=== PATIENT | female | born 1955 | race Caucasian/White ===

== ENCOUNTER 2024-03-27 23:06 | Inpatient (IN) | payer MEDICARE, OTHER, SELFPAY ==
[2024-03-27 23:13] VITALS: BP 156/77
[2024-03-28] VITALS (9 sets, daily range): BP systolic 124–154; BP diastolic 59–114; BMI 36.6
--- NOTE | 2024-03-28 01:11 | PTCARENOTE ---
Pt received from Michele morales ~1298. Pt oriented to unit, pt belongings w/ pt. Intake completed. HR SR. 3L NC 93-94%. Pt denies CP or SOB while resting. Informed to notify RN if any changes, call marcus within reach.
[2024-03-28 04:29] LABS: Hematocrit 43.2 % (37.0-47.0); Hemoglobin 14.2 g/dL (12.0-16.0); Mean Corp Hgb Conc. 32.9 g/dL (33.0-37.0); Mean Corpuscular Hgb 28.9 pg (27.0-31.0); Mean Corpuscular Volume 87.8 fL (81.0-99.0); Mean Platelet Volume 9.9 fL (7.4-10.4); Platelet Count 200 10^3/uL (130-400); Red Blood Cell Count 4.92 10^6/uL (4.20-5.40); Red Cell Dist. Width 14.6 % (11.5-14.5); White Blood Cell Count 8.7 10^3/uL (4.8-10.8)
[2024-03-28] MEDS: ULTRAM 50 MG PO ×3 (04:34→22:47)
[2024-03-28 04:51] LABS: NT-proBNP 406 pg/ml
[2024-03-28 04:58] LABS: ALT (SGPT) 16 U/L (0-35); AST (SGOT) 27 U/L (14-36); Albumin 3.7 g/dl (3.5-5.0); Alkaline Phosphatase 52 U/L (38-126); Blood Urea Nitrogen 15 mg/dl (7-17); Calcium 9.2 mg/dl (8.4-10.2); Carbon Dioxide 33 mmol/L (22-30); Chloride 99 mmol/L (98-107); Direct Bilirubin 0.3 mg/dl (0.0-0.4); Estimated Creatinine Clearance 103 ml/min; Glucose 129 mg/dl (70-99); HDL Cholesterol 39 mg/dl; LDL Cholesterol, Calculated 27 mg/dl; Magnesium 1.9 mg/dl (1.6-2.3); Potassium 4.2 mmol/L (3.5-5.1); Sodium 138 mmol/L (135-145); Total Bilirubin 0.4 mg/dl (0.2-1.3); Total Cholesterol 99 mg/dl (50-199); Triglyceride 166 mg/dl (10-149); Very Low Density Lipoprotein 33 mg/dl (0-30); eGFR > 60.00
--- NOTE | 2024-03-28 07:53 | HPS.HSE ---
Family Physician
-
Family Physician: Riccardo Sinclair
Chief Complaint
-
Exertional SOB
History of Present Illness
68 y/o pleasant woman with PMH of CAD S/P Left Heart Cath back in 2017 which was being managed medically. Presented to her Mainframe Systems Engineer Dr. Giordano on Saturday03/25/24 with c/o progressive exertional SOB x 3-4 wks. Denied CP. Had EKG and Echo done @
Dr. Giordano's office and was referred to [facility] for Left heart Cath. Pt presented to [facility] on 03/26/24. Cath yielded 3 vessel CAD ( LM: 20-30% distal, LAD 90-95% prox. and 70-80% mid, LCX: mid-distal with diffuse small
vessels disease, RCA: 100% mid). PCI of the LAD was attempted but was unsuccessful necessitating transfer to [facility] on 03/27/24 @ ~ 2330. Pt stable in no acute distress on presentation, not requiring Heparin or NTG.
Medical History
Past Medical History
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
Additional Past Medical History:
Diverticulosis, Class 2 obesity (BMI 36.6)
Past Surgical History: Reports (x3), Gynocological, Orthopedic (b/l rotator cuff, and cervical spine (C4-C5 disectomy)) and Urological (incisional and umbilical hernia)
Additional Past Surgical History:
hysterectomy
Social History
Tobacco: Former Smoker (quit 7 years ago (2pks/yr since age 25 and quit @ age 61; 72/pkyr))
Alcohol: None
Drug: None
Personal: (to Ascencion Morales)
Living: With Family
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
Family History
Family History: CAD (both mom and dad (mom still living, Dad in his 70's- pt not sure of cause of ))
Allergies / Home Medications
Allergies reflects when Allergies were last updated in [employer].
Home Medications with original date entered in [employer]
Allergy/Medication List:
Clindamycin, Percodan, Oxycodone
Review of Systems
-
History Source: Patient
Constitutional: Reports No Symptoms
EENT: Reports No Symptoms
Respiratory: Reports Other (SOB)
Cardiac: Reports No Symptoms
Abdomen/GI: Reports No Symptoms
: Reports Frequency
Musculoskeletal: Reports Joint Pain (neck and back)
Skin: Reports No Symptoms
Neurological: Reports No Symptoms
Endocrine: Reports No Symptoms
Hematologic/Lymphatic: Reports No Symptoms
Psych: Reports No Symptoms
Physical Exam
Vital Signs
Vital Signs
Temp Pulse Resp BP Pulse Ox
98.6 F 77 20 154/70 100
03/28/24 03:10 03/28/24 04:15 03/28/24 03:10 03/28/24 04:11 03/28/24 03:10
Physical Exam
General: Well Developed, Well Nourished and Morbidly Obese (Class 2)
HEENT: NormoCephalic, Anicteric, Moist mucous membranes, Atraumatic, No Ptosis and Nose Appears Normal
Respiratory: Decreased Breath Sounds
Cardiac: S1/S2, Regular Rhythm and Murmur (1-2/6 systolic)
Breast: Deferred by me
GI: Soft, Non Tender, Non Distended and Normal Bowel Sounds
Rectal: Deferred by Provider
Genito-urinary: Deferred by me
Musculoskeletal: Edema, Left Lower Extremity and Edema, Right Lower Extremity
Skin: Warm
Neuro: Awake, Alert, Oriented, AO x 3 and No Motor Deficits
Psych: Calm and Intact Judgment/Insight
Laboratory Results
-
03/28/24 04:21
03/28/24 04:21
Laboratory Results
Total Bilirubin 0.4 mg/dl (0.2-1.3) 03/28/24 04:21
AST 27 U/L (14-36) 03/28/24 04:21
ALT 16 U/L (0-35) 03/28/24 04:21
Alkaline Phosphatase 52 U/L (38-126) 03/28/24 04:21
Impression/Plan
-
IMPRESSION: 68 y/o woman with severe 3v CAD/ including 20-30% distal LM transferred from [facility] to [facility] for evaluation of high risk PCI vs CABG
PLAN:
-CT Surgeon to evaluate
-Will consult Cardiology
-Will consult Diabetes Education/Management
[2024-03-28 08:12] LABS: Glucose - Point of Care 144 mg/dl (70-99)
[2024-03-28] MEDS: ADVAIR HFA 230/21 MCG INHALER 1 PUFF INH ×2 (08:17→18:00)
[2024-03-28] MEDS: NOVOLOG FLEXPEN-MODERATE RESISTANCE SC (09:13)
[2024-03-28] MEDS: TOPROL XL 50 MG PO (09:14)
[2024-03-28] MEDS: ORETIC 25 MG PO (09:14)
[2024-03-28] MEDS: CLARITIN 10 MG PO (09:15)
[2024-03-28] MEDS: CRESTOR 20 MG PO (09:15)
[2024-03-28] MEDS: ASPIR LOW (ENTERIC COATED) 81 MG PO (09:15)
[2024-03-28] MEDS: GLUCOPHAGE 500 MG PO (09:15)
[2024-03-28] MEDS: BENTYL 20 MG PO ×3 (09:16→22:52)
[2024-03-28] MEDS: LYRICA 50 MG PO ×3 (09:20→22:46)
[2024-03-28 09:41] LABS: Glycohemoglobin (HgbA1c) 8.3 % (4.0-5.6)
--- NOTE | 2024-03-28 10:00 | PTCARENOTE ---
Assumed care of pt from night RN. Pt received awake and alert, Ox3. VSS, CM shows NSR 70's, POX 94% on RA. Right radial site CDI with normal CMS. She denies any pain or discomfort at this time. Will continue to monitor closely.
[2024-03-28 12:56] LABS: O2 Saturation % 88.1 % (94-98); PCO2 52 mmHg (32-35); pH 7.46 (7.35-7.45)
[2024-03-28 12:58] LABS: Glucose - Point of Care 214 mg/dl (70-99)
[2024-03-28] MEDS: NOVOLOG FLEXPEN-MODERATE RESISTANCE 3 UNITS SC ×2 (12:58→17:58)
[2024-03-28 13:03] LABS: PO2 56 mmHg (83-108)
[2024-03-28 13:31] LABS: APTT 28.1 Sec (23.4-35.0); INR 1.06; PT 13.6 Sec (11.4-14.6)
[2024-03-28 17:58] LABS: Glucose - Point of Care 210 mg/dl (70-99)
[2024-03-28] MEDS: HEPARIN 25000 UNITS/250 ML IV (19:29)
[2024-03-28 21:32] LABS: Glucose - Point of Care 235 mg/dl (70-99)
--- NOTE | 2024-03-28 22:14 | PTCARENOTE ---
Pt received at start of shift, HR SR. Heparin initiated at 1000units/hr ~194. Pt educated on purpose and precautions w/ heparin. Pt states understanding. Pt denies any SOB w/o activity or CP. Informed to notify RN if any changes, call marcus within
reach.
[2024-03-28] MEDS: LANTUS 0.599999999999999978 UNITS SC (22:52)
--- NOTE | 2024-03-29 01:14 | W.PN.CT ---
Addendum entered and electronically signed by Carlos Hernández MD 03/29/24 09:14:
I saw and examined the patient.
The PA's note was reviewed and I agree with the note.
Comment:
Case reviewed & available imaging reviewed
Preoperative evaluation/ risk stratification ongoing
Severe CAD, but operative risk is significantly elevated (will calculate STS)
Multidisciplinary discussions ongoing
Original Note:
Today's Communication / Plan
-
Plan:
-No major issues overnight
-Initiated on heparin gtt yesterday 03/28
-CT Surgeon to evaluate films and assess pt for surgical candidacy
-For possible high risk PCI, Cardiology Consult
-Will consider pulmonology and diabetes education/management consult
-Ongoing discussion/evaluation
-Will cont. to closely monitor
Assessment / Plan
-
Assessment:
-Severe 3v CAD/20-30% distal LM
-PLATA
-Mild aortic stenosis
-Moderate aortic root sclerosis
-Severe scoliosis
-Severe COPD/stage 3 with FEV1 (0.85, 37%)
-Former tobacco abuse (quit 7 years ago (2pks/yr since age 25 and quit @ age 61; 72/pkyr)
-Asthma
-Hypoxemia per ABG 03/29 with Pao2 56 L
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
-Class 2 obesity (BMI 36.6)
-HLD
-HTN
-Severe PAD with claudication (Left SFA with 75% stenosis)
-Seasonal allergies
-GERD
-Diverticulosis
-Chronic neck and back pain
-S/p C4/C5 discectomy
-S/P b/l rotator cuff repair
-S/P x 3
-S/P Hysterectomy
-S/P Incisional and Umbilical hernia repair
Discussed patient care with: Cardiology, Nursing, Respiratory Therapy, Pharmacy and Care Team
Subjective
-
Date of Service: March 29, 2024
No issues overnight. Denies CP
Objective Data
-
PT 13.6 Sec (11.4-14.6) 03/28/24 13:11
INR 1.06 03/28/24 13:11
APTT Cancelled 03/28/24 18:39
Vital Signs
Vital Signs
Temp Pulse Resp BP Pulse Ox
99 F 73 18 139/92 92
03/28/24 22:57 03/28/24 23:00 03/28/24 22:57 03/28/24 22:57 03/28/24 22:57
CT Intake/Output/Weight
03/28/24 03/28/24 03/29/24
06:59 18:59 06:59
Intake Total 480 / 480
Balance 480 / 480
SaO2: 92 (2L)
Physical Exam
-
General: Awake, Oriented and AOx3
Cardiovascular: Regular rate & rhythm and Murmur (1-2/6 systolic)
Respiratory: Decreased Breath Sounds
Extremities: Edema +1
Data Reviewed
-
Lab Results: Results Reviewed
Medications: Active Meds Reviewed
Chest X-Ray: Report Reviewed and Image Reviewed
ECG: Report Reviewed and Image Reviewed
[2024-03-29 01:59] VITALS: BP 133/62
[2024-03-29 02:15] LABS: Hematocrit 41.8 % (37.0-47.0); Hemoglobin 14.1 g/dL (12.0-16.0); Mean Corp Hgb Conc. 33.7 g/dL (33.0-37.0); Mean Corpuscular Hgb 29.1 pg (27.0-31.0); Mean Corpuscular Volume 86.2 fL (81.0-99.0); Mean Platelet Volume 10.1 fL (7.4-10.4); Platelet Count 206 10^3/uL (130-400); Red Blood Cell Count 4.85 10^6/uL (4.20-5.40); Red Cell Dist. Width 14.4 % (11.5-14.5); White Blood Cell Count 10.5 10^3/uL (4.8-10.8)
[2024-03-29 02:46] LABS: Blood Urea Nitrogen 16 mg/dl (7-17); Calcium 9.5 mg/dl (8.4-10.2); Carbon Dioxide 34 mmol/L (22-30); Chloride 97 mmol/L (98-107); Estimated Creatinine Clearance 103 ml/min; Glucose 219 mg/dl (70-99); Potassium 3.9 mmol/L (3.5-5.1); Sodium 138 mmol/L (135-145); eGFR > 60.00
[2024-03-29 05:23] VITALS: BMI 36.2
[2024-03-29 07:31] VITALS: BP 165/72
[2024-03-29] MEDS: ULTRAM 50 MG PO (08:10)
[2024-03-29] MEDS: ADVAIR HFA 230/21 MCG INHALER 1 PUFF INH ×2 (08:19→19:23)
[2024-03-29 08:21] LABS: Glucose - Point of Care 215 mg/dl (70-99)
--- NOTE | 2024-03-29 08:31 | CON.CAR ---
Consultation
Consultation Request
Date/Time Consultation Requested: 03/28/2024 @ 18:21
Date/Time Consultation Performed: 03/29/2024 @ 08:32
Requesting Provider: Carlos Hernández M.D.
Performing Provider: Basilio Abreu D.O.
Reason for Consultation: Transfer from [facility] for consideration of CABG vs. atherectomy + PCI.
Medical History
-
Chief Complaint: Transfer from [facility].
History of Present Illness:
68 y/o female with HTN, HLD, PAD, asthma/COPD transferred from [facility].� The patient was seen by her primary vulcanizing machine operator, Dr. Giordano, where she described worsending/accelerating shortness in breath/dyspnea on exertion.� An EKG and echocardiogram were
performed in the office and she was referred to [facility] for cardiac catheterization.� That catheterization revealed severe multivessel disease with dense calcification.� PCI was attempted but there was concern for balloon underexpansion and need for
atherectomy vs. CABG.� The patient has reportedly significant PAD (75% SFA stenosis) and COPD which may preclude surgical revascularization.
On interview, the patient states she feels well at rest. She does admit to dyspnea with ambulation to the bathroom. Since arrival, she has been chest pain free. She denies palpitations, syncope or presyncope. BP is mildly elevated. She is
maintaining oxygen saturation of 92% on 2LNC.
I have personally reviewed the cardiac catheterization films.� There is significant disease in pLAD and mLAD, a STOREKEEPER STEWARD in the mRCA and moderate disease in the LCx.� The echocardiogram revealed mild/moderate aortic valve stenosis.
Spirometry was performed at bedside, showing FEV1/FVC 0.76, FEV1 = 1.15 L (39%).
Separately, she is caring for her who is currently being considered for lung transplant with [facility]. Her mother last night (she was on hospice).
DATA:
TTE, 03/27/2024:
CONCLUSIONS
�1.� Technically difficult study making assessment of wall motion less reliable.�
�Grossly, LV function is normal with an estimated ejection fraction of 60%.� A
�localized wall motion abnormality could not be excluded.
�2.� Normal RV function
�3.� Mildly increased transaortic gradient of 21 mm peak 14 mm mean with a
�calculated aortic valve area of 1.5 cm2.� Findings compatible with the presence
�of mild aortic stenosis.� No aortic insufficiency was detected.
�4.� Moderate aortic root sclerosis
�5.� Normal chamber sizes
�6.� No other significant valvular disease is detected
Cardiac catheterization, 03/27/2024 (my interpretation):
1. Right dominant circulation with a 60 to 70% distal left main stenosis (only appreciated on steep AP, TOP WADDY 40), densely calcified 80-90% lesion in the proximal LAD, and a densely calcified, Schumacher 1, 1, 1 70%, 80%, 80% lesion in the mid LAD/second
diagonal, 60% ostial circumflex lesion and chronic total occlusion of the mid RCA, supplied by [id number] collaterals.
2. Limited balloon angioplasty of the densely calcified 80-90% proximal LAD lesion with incomplete balloon expansion.
Past Medical History
Past Medical History: Asthma, CAD, COPD, HTN, Hypercholesterolemia, IDDM, Valvular Disease (Mild/moderate .) and Other (PAD)
Social History
Tobacco: Former Smoker (20 pack years, quit 7 years ago.)
Alcohol: None
Drug: None
Employment: Retired
Family History
Family History: Reviewed & Not Pertinent
Allergies / Home Medications
Allergy/AdvReac Type Severity Reaction Status Date / Time
aspirin [From Percodan] Allergy Intermediate Hives Verified 03/28/24 21:35
clindamycin Allergy Intermediate Hives Verified 03/28/24 21:35
oxycodone [From Percodan] Allergy Intermediate Hives Verified 03/28/24 21:35
�Medication �Instructions �Recorded �Confirmed �Type
albuterol 90 mcg/actuation aerosol mcg inhalation PRN SOB 03/27/24 History
inhaler
aspirin 81 mg tablet 81 mg PO DAILY 03/27/24 03/28/24 History
dicyclomine 20 mg tablet 20 mg PO TID 03/27/24 03/28/24 History
docusate calcium 240 mg capsule 240 mg PO PRN CONSTIPATION 03/27/24 History
fluticasone 250 mcg-salmeterol 50 1 inh inhalation BID 03/27/24 03/27/24 History
mcg/dose blistr powdr for
inhalation (Advair Diskus)
hydrochlorothiazide 25 mg tablet 25 mg PO DAILY 03/27/24 03/28/24 History
icosapent ethyl 1 gram capsule 1 g PO QID 03/27/24 03/28/24 History
(Vascepa)
loratadine 10 mg tablet (Allergy 10 mg PO DAILY 03/27/24 03/28/24 History
Relief (loratadine))
losartan 100 mg tablet 100 mg PO DAILY 03/27/24 03/28/24 History
metformin 500 mg tablet 500 mg PO DAILY 03/27/24 03/27/24 History
metoprolol succinate 50 mg 50 mg PO DAILY 03/27/24 03/28/24 History
tablet,extended release 24 hr
pregabalin 50 mg capsule 50 mg PO TID 03/27/24 03/27/24 History
rosuvastatin 20 mg tablet 20 mg PO DAILY 03/27/24 03/28/24 History
tramadol 50 mg tablet 100 mg PO Q6H PRN PAIN 03/27/24 03/28/24 History
Review of Systems
-
History Source: Patient
Constitutional: No Symptoms
EENT: No Symptoms
Respiratory: Trouble Breathing
Cardiac: Chest Pain
Abdomen/GI: No Symptoms
: No Symptoms
Musculoskeletal: No Symptoms
Skin: No Symptoms
Neurological: No Symptoms
Endocrine: No Symptoms
Hematologic/Lymphatic: No Symptoms
Physical Exam
Vital Signs
Temp Pulse Resp BP Pulse Ox
36.9 C 70 18 165/72 93
03/29/24 07:28 03/29/24 08:20 03/29/24 08:20 03/29/24 07:31 03/29/24 07:28
Lab Results
03/29/24 02:09
03/29/24 02:09
[id number] Pept 406 pg/ml 03/28/24 04:21
Physical Exam
General: Well Developed, Well Nourished, No Apparent Distress and Comfortable
HEENT: Normocephalic, Anicteric, Moist Mucous Membranes and Atraumatic
Respiratory: Clear and Non Labored Respirations
Cardiac: S1/S2 and Regular Rhythm
Breast: Deferred by me
GI: Soft, Non Tender, Non Distended and Normal Bowel Sounds
Rectal: Deferred by Provider
Genito-urinary: No Costovertebral Tender and Clear Urine
Musculoskeletal: No Clubbing, No Cyanosis and No Edema
Skin: Warm and Dry
Neuro: AO x 3
Hematologic/Lymphatic: No Lymphadenopathy
Psych: Calm
Impression / Plan
-
Impression/Plan: 68 y/o female with IDDM, HTN, HLD and PAD transferred from [facility] after cardiac catheterization performed for accelerating SOB/PLATA revealed severe, multivessel CAD requiring atherectomy vs. CABG.
#CAD
-New diagnosis.
-Films reviewed. The patient is a candidate for high risk PCI/Atherectomy/lithotripsy given the dense calcification. CABG is the best option for coronary revascularization, but her comorbidities may negate this penitentiary advantage with high
likelihood of procedure related mortality/morbidity.
-Strategically, the patient's 90% pLAD lesion is the most prognostically significant. Percutaneous options include isolated PCI of only the 90% lesion and medical management of the remainder of the disease, DK crush of the ostial LCx/LAD/LMCA to
address all of the proximal disease (I would be highly suspicious that the LCx would be compromised without dedicated stent, negating a provisional strategy). At this time, I would defer treatment of the mid-LAD lesion and plan to address it
medically or with staged PCI at a later date. In terms of plaque modification, I would favor intracoronary lithotripsy if possible to lessen the risk of no reflow as she is relatively dependent on her LAD.
-It is possible that her symptoms are entirely driven by her COPD given her lack of chest pain. Another option would be to offer her medical therapy given the high risk of the potential surgery/interventions, understanding that she has a
significant likelihood of /AK.
-Hold antiplatelet therapy at this time.
-Discuss revascularization strategy with CT surgery. We will await their formal assessment.
-Maintain aspirin, metoprolol, rosuvastatin, icosapent ethyl.
#COPD
-FEV1 = 1.15 L (39%).
-Formal PFT's (including DLCO) tomorrow.
#HTN
-Chronic, stable.
#HLD
-Chronic, stable.
-Continue rosuvastatin and icosapent ethyl.
-Goal LDL < 55, Triglycerides < 150.
#IDDM
-Chronic, stable.
-Check HbA1c.
-SSI per primary team.
-Hold metformin in anticipation of possible catheterization.
#PAD
-Chronic, stable.
-Lipid lower therapy as above.
Data Reviewed
-
EKG: Tracing Personally Visualized and interpreted and Report Reviewed by me
Radiology: Image Personally Visualized and interpreted and Report Reviewed by me
CT Scan: Image Personally Visualized and interpreted
Medical Tests (Nuc Med, Echo etc): Image Personally Visualized and interpreted, Report Reviewed by me, Discussed with Physician and Discussed with Patient
Labs: Labs Reviewed by me, Discussed with Physician and Discussed with Patient
Old Records: Reviewed
[2024-03-29] MEDS: NOVOLOG FLEXPEN-MODERATE RESISTANCE 3 UNITS SC ×2 (10:24→17:40)
[2024-03-29] MEDS: GLUCOPHAGE 500 MG PO (10:25)
[2024-03-29] MEDS: CRESTOR 20 MG PO (10:25)
[2024-03-29] MEDS: CLARITIN 10 MG PO (10:25)
[2024-03-29] MEDS: ASPIR LOW (ENTERIC COATED) 81 MG PO (10:25)
[2024-03-29] MEDS: ORETIC 25 MG PO (10:26)
[2024-03-29] MEDS: LYRICA 50 MG PO ×3 (10:26→22:29)
[2024-03-29] MEDS: TOPROL XL 50 MG PO (10:26)
[2024-03-29] MEDS: BENTYL 20 MG PO ×3 (10:27→22:29)
--- NOTE | 2024-03-29 10:57 | PTCARENOTE ---
Assumed care of pt from night RN. Pt received awake and alert, Ox3. VSS, CM shows NSR 70's, POX 94/2liters. Tramadol 50 mg given as per MAR for lower back pain. Heparin infusing at 1200u/hr through left wrist. Right radial site remains JANNET with
good CMS throughout limb. Will continue to monitor closely.
[2024-03-29 11:06] LABS: APTT 42.6 Sec (23.4-35.0)
[2024-03-29] MEDS: KCL 20 MEQ PO (11:12)
--- NOTE | 2024-03-29 11:13 | PTCARENOTE ---
PTT resulted at 42.6, Heparin drip increased to 1,400 u/hr as per protocol. KCl given po as per MAR.
[2024-03-29 12:57] VITALS: BP 137/61
[2024-03-29 13:54] LABS: Glucose - Point of Care 285 mg/dl (70-99)
[2024-03-29] MEDS: NOVOLOG FLEXPEN-MODERATE RESISTANCE 5 UNITS SC (13:54)
--- NOTE | 2024-03-29 16:15 | CON.PUL ---
Consultation
Consultation Request
Date/Time Consultation Requested: 03/29/2024 - 1101
Date/Time Consultation Performed: 03/29/2024 - 0
Requesting Provider: Za Santos PA-C
Performing Provider: Johnson Roy MD
Reason for Consultation: Pre-Op pulmonary optimization
Medical History
-
Chief Complaint: SOB
History of Present Illness:
68-year-old female with a past medical history of CAD, asthma, reported history of COPD, GERD, DM type II, PAD, former tobacco use disorder and cataracts who presents with SOB for 3-4 weeks. 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
Dr. Giordano, on 03/25/[address] depressions concerning for ischemia. She had gone to [facility] for left heart cath showing three-vessel CAD. PCI of the LAD was attempted but unsuccessful and now she is here at [facility] for further management. Spirometry was done here at [facility] showing a very severe restrictive lung defect with postbronchodilator FVC of 40% predicted. She also had a blood gas showing metabolic alkalosis with a pH 7.46, pCO2 52.
Pulmonary service now consulted for further recommendations/management.
When I saw the patient she was sitting in bed in no acute distress on 2 L/min nasal cannula saturating 94%. She currently feels well. She sometimes takes off her oxygen to go to the bathroom and denies any shortness of breath during those periods
of time. She says that she struggles with allergies that were recently bad and she knows that she is allergic to pollen and mold. She is not actually sure if she has a history of asthma, and she does not follow with a business services manager. She does take
Advair at home and when I asked why she takes Advair, she was not sure. Patient currently denies headache, chest pain, abdominal pain, fevers or chills.
PMHx: Asthma, CAD, reported history of COPD, GERD, hypertension, hypercholesterolemia, DM type II, PAD, obesity, former tobacco use disorder, IBS, cataracts
PSHx: x 3, C4-5 discectomy, incisional and umbilical hernia, hysterectomy
Past Medical History
Past Medical History: Other (Above as per HPI)
Past Surgical History: Other (Above as per HPI)
Social History
Tobacco: Former Smoker (Quit 7 years ago - 2 PPD x 20 years)
Alcohol: None
Drug: None
Personal:
Living: With Family
Family History
Family History: CAD (Both parents)
Allergies / Home Medications
Allergies
Allergy/AdvReac Type Severity Reaction Status Date / Time
aspirin [From Percodan] Allergy Intermediate Hives Verified 03/28/24 21:35
clindamycin Allergy Intermediate Hives Verified 03/28/24 21:35
oxycodone [From Percodan] Allergy Intermediate Hives Verified 03/28/24 21:35
Home Medications
�Medication �Instructions �Recorded �Confirmed �Last Taken �Type
albuterol 90 mcg/actuation aerosol mcg inhalation PRN SOB 03/27/24 Unknown History
inhaler
aspirin 81 mg tablet 81 mg PO DAILY 03/27/24 03/28/24 03/28/24 History
dicyclomine 20 mg tablet 20 mg PO TID 03/27/24 03/28/24 03/28/24 History
docusate calcium 240 mg capsule 240 mg PO PRN CONSTIPATION 03/27/24 Unknown History
fluticasone 250 mcg-salmeterol 50 1 inh inhalation BID 03/27/24 03/27/24 Unknown History
mcg/dose blistr powdr for
inhalation (Advair Diskus)
hydrochlorothiazide 25 mg tablet 25 mg PO DAILY 03/27/24 03/28/24 03/27/24 History
icosapent ethyl 1 gram capsule 1 g PO QID 03/27/24 03/28/24 Unknown History
(Vascepa)
loratadine 10 mg tablet (Allergy 10 mg PO DAILY 03/27/24 03/28/24 03/27/24 History
Relief (loratadine))
losartan 100 mg tablet 100 mg PO DAILY 03/27/24 03/28/24 03/28/24 History
metformin 500 mg tablet 500 mg PO DAILY 03/27/24 03/27/24 03/26/24 History
metoprolol succinate 50 mg 50 mg PO DAILY 03/27/24 03/28/24 03/27/24 History
tablet,extended release 24 hr
pregabalin 50 mg capsule 50 mg PO TID 03/27/24 03/27/24 Unknown History
rosuvastatin 20 mg tablet 20 mg PO DAILY 03/27/24 03/28/24 03/27/24 History
tramadol 50 mg tablet 100 mg PO Q6H PRN PAIN 03/27/24 03/28/24 Unknown History
Review of Systems
-
History Source: Patient
All other systems: Negative unless noted
Vitals / Labs / Diagnostic Testing
Vital Signs
Temp Pulse Resp BP Pulse Ox
98.5 F 82 20 165/72 94
03/29/24 12:48 03/29/24 10:26 03/29/24 12:48 03/29/24 10:26 03/29/24 12:48
Lab Data
03/29/24 02:09
03/29/24 02:09
Laboratory Results
03/28/24 03/29/24 03/29/24
18:39 02:09 09:46
APTT Cancelled 42.0 H 42.6 H
Diagnostic Testing:
Physical Exam
-
HEENT: Normocephalic and Anicteric
Cardiovascular: S1/S2, Murmur (ARCELIA heard in LUSB) and Peripheral Edema (+1 lower extremity pitting edema)
Respiratory: Clear, Wheeze (negative), Rales (negative), Rhonchi (negative) and Accessory Resp Muscle Use (negative)
GI: Soft, Non Distended, Non Tender and Normal Bowel Sounds
Neurology: AO x 3 and Tremors (negative)
Skin: Warm and Dry
General: Comfortable, Chills (negative) and Sweats (negative)
Assessment
-
Assessment: 68-year-old female with a past medical history of CAD, asthma, reported history of COPD, GERD, DM type II, PAD, former tobacco use disorder and cataracts who presents with SOB for 3-4 weeks. 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 Giordano, on 03/25/[address]ressions concerning for ischemia. She had gone to [facility] for left heart cath showing three-vessel CAD. PCI of the LAD was attempted but unsuccessful and now she
is here at [facility] for further management. Spirometry was done here at [facility] showing a very severe restrictive lung defect with postbronchodilator FVC of 40% predicted. She also had a blood gas showing metabolic alkalosis
with a pH 7.46, pCO2 52. Pulmonary service now consulted for further recommendations/management.
Chronic conditions [employer] INTER[employer]: Asthma, CAD, reported history of COPD, GERD, hypertension, hypercholesterolemia, DM type II, PAD, obesity, former tobacco use disorder, IBS, cataracts
Impression:
#Very severe restrictive lung disease - this may be over-estimated given patient positioning and deconditioning during current hospitalization
#Abnormal blood gas with metabolic alkalosis with compensatory respiratory acidosis
#Morbid obesity
#DM type II c/b hyperglycemia (A1C: 8.3)
#Hx of asthma (she does not have COPD as per spirometry on 03/28/2024)
#CAD
#GERD
Plan:
- Patient is intermediate-high risk for pulmonary complications given her very severe restrictive lung disease ---> difficult to say if this is truly a restrictive lung defect or if it is effort dependent --> recommend full PFTs performed in PFT lab
with pre and post bronchodilator spirometry, lung volumes + diffusion capacity
- Her CT chest shows mild linear scarring in her LLL, otherwise her lung parenchyma looks good with no evidence of ILD
- She is saturating 94% on 2L/min and breathing comfortably
- Ideally performing a lesser invasive procedure like a cardiac catheterization would be preferred compared to doing a surgical revascularization. However according to cardiology, she has dense coronary calcification and would be a high risk PCI
- The following recommendations are based on if she gets MAC/GA for a CABG:
- Given her hypercapnea, I would extubate to BiPAP post-operatively assuming she is not having any vomiting or hemoptysis
- Trend her blood gas closely when getting close to extubation post-op
- Given her Hx of asthma, continue her Advair as prescribed, and give a dose of steroids pre-op in addition to a DuoNeb treatment
- Early post-operative ambulation as tolerated
- Continue prn nebulized bronchodilators
- Maintain SpO2 >90-94% with supplemental O2 as needed
- Incentive spirometer encouraged
- PT/OT
- Replete electrolytes with K>4, Mg>2
- Maintain euglycemia with goal BG >100 and <180
- DVT ppx
Pulmonary service will continue to follow along. I will arrange to see her in the office to discuss lung cancer screening given her significant tobacco use history as she qualifies for LDCT chest given she quit 7 years ago and smoked >[id number]
Hx and is between ages 50-77. I also will manage her asthma.
Total time spent today was 55 minutes for this encounter. Time includes reviewing laboratory test/imaging results, reviewing pertinent medical records, obtaining and reviewing medical history, performing an appropriate exam, ordering medications,
tests and procedures. Time also includes documentation of this encounter, coordinating patient care and communicating with other healthcare professionals. Total time does not include separately billed tests performed on this date of service.
Data:
CT Chest without contrast 03-29-2024:
1. SEVERE CALCIFIC ATHEROSCLEROTIC PLAQUE in the CORONARY ARTERIES.
2. Severe calcific atherosclerotic plaque in the thoracic aorta.
3. Moderate calcification in the aortic valve.
4. Mild scarring in both lungs.
5. Severe right convex curvature of the midthoracic spine with severe multilevel thoracic discogenic degenerative disease.
[2024-03-29 16:18] VITALS: BP 142/56
[2024-03-29] MEDS: HEPARIN 25000 UNITS/250 ML IV (16:19)
[2024-03-29] MEDS: ULTRAM 100 MG PO ×2 (17:32→23:55)
[2024-03-29 17:40] LABS: Glucose - Point of Care 239 mg/dl (70-99)
[2024-03-29 17:40] LABS: APTT 56.8 Sec (23.4-35.0)
[2024-03-29 19:58] VITALS: BP 137/64
--- NOTE | 2024-03-29 21:42 | PTCARENOTE ---
Pt received at start of shift, HR SR. Pt melancholy and tearful over loss of mother early in AM - Pt very worried she won't be able to make it to her . Pt OOB to bathroom to wash her face, assisted pt back to bed. pt 94% 2L NC. Pt denies any
CP, SOB on rest, or lightheadedness/dizziness. Informed pt to notify RN if any changes, call marcus within reach.
[2024-03-29 22:28] LABS: Glucose - Point of Care 283 mg/dl (70-99)
[2024-03-29] MEDS: LANTUS 0.599999999999999978 UNITS SC (22:28)
[2024-03-29 22:35] VITALS: BP 133/90
[2024-03-30] VITALS (10 sets, daily range): BP systolic 115–154; BP diastolic 47–111; BMI 36.2
--- NOTE | 2024-03-30 01:01 | W.PN.CT ---
Addendum entered and electronically signed by Carlos Hernández MD 03/30/24 16:25:
I saw and examined the patient.
The PA's note was reviewed and I agree with the note.
Comment:
Preoperative risk stratification ongoing
Greatly appreciate the expertise of my medical colleagues
Given patients comorbidities and significant ascending aortic calcifications - would favor PCI if possible
I have asked my surgical colleagues to independently evaluate this patient
Original Note:
Today's Communication / Plan
-
Plan:
-No issues overnight
-Initiated on heparin gtt on 03/28
-CT Surgeon to evaluate films and assess pt for surgical candidacy
-For possible high risk PCI, Cardiology following
-Pulm. following and recommends full PFTs performed in PFT lab with pre and post bronchodilator spirometry, lung volumes + diffusion capacity
-Will consider diabetes education/management consult given hgb A1C of 8.3
-Ongoing discussion/evaluation
-Will cont. to closely monitor
Assessment / Plan
-
Assessment:
-Severe 3v CAD/20-30% distal LM
-PLATA
-Mild aortic stenosis
-Moderate aortic root sclerosis, per echo @ Dr. Giordano's office
-Scoliosis with severe right convex curvature of the midthoracic spine
-COPD with FEV1 (0.85, 37%)
-Former tobacco abuse (quit 7 years ago (2pks/yr since age 25 and quit @ age 61; 73/pkyr)
-Asthma
-Hypoxemia per ABG 03/29 with Pao2 56 L
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
-Class 2 obesity (BMI 36.6)
-HLD
-HTN
-Severe PAD with claudication (Left SFA with 75% stenosis)
-Seasonal allergies
-GERD
-Diverticulosis
-Chronic neck and back pain
-S/p C4/C5 discectomy
-S/P b/l rotator cuff repair
-S/P x 3
-S/P Hysterectomy
-S/P Incisional and Umbilical hernia repair
Discussed patient care with: Cardiology, Nursing, Respiratory Therapy, Pharmacy and Care Team
Subjective
-
Date of Service: March 30, 2024
No issues overnight. Denies CP/SOB. Currently on 2L NC
Objective Data
-
PT 13.6 Sec (11.4-14.6) 03/28/24 13:11
INR 1.06 03/28/24 13:11
APTT 56.8 Sec (23.4-35.0) H 03/29/24 17:21
Vital Signs
Vital Signs
Temp Pulse Resp BP Pulse Ox
98.3 F 68 18 133/90 94
03/29/24 22:35 03/29/24 22:35 03/29/24 22:35 03/29/24 22:35 03/29/24 22:35
CT Intake/Output/Weight
03/29/24 03/29/24 03/30/24
06:59 18:59 06:59
Intake Total 240 / 240 480 / 480
Balance 240 / 240 480 / 480
SaO2: 94 (2L)
Physical Exam
-
General: Awake, Oriented and AOx3
Cardiovascular: Regular rate & rhythm and Murmur (1-2/6 systolic)
Respiratory: Decreased Breath Sounds
Extremities: Edema +1
Data Reviewed
-
Lab Results: Results Reviewed
Medications: Active Meds Reviewed
Chest X-Ray: Report Reviewed and Image Reviewed
ECG: Report Reviewed and Image Reviewed
[2024-03-30 01:16] LABS: APTT 99.4 Sec (23.4-35.0)
[2024-03-30] MEDS: ADVAIR HFA 230/21 MCG INHALER 1 PUFF INH ×2 (07:39→19:02)
[2024-03-30 08:35] LABS: Glucose - Point of Care 174 mg/dl (70-99)
[2024-03-30] MEDS: TOPROL XL 50 MG PO (09:03)
[2024-03-30] MEDS: CRESTOR 20 MG PO (09:03)
[2024-03-30] MEDS: ASPIR LOW (ENTERIC COATED) 81 MG PO (09:03)
[2024-03-30] MEDS: LYRICA 50 MG PO ×3 (09:04→22:35)
[2024-03-30] MEDS: GLUCOPHAGE 500 MG PO (09:04)
[2024-03-30] MEDS: ORETIC 25 MG PO (09:05)
[2024-03-30] MEDS: BENTYL 20 MG PO ×3 (09:09→22:35)
[2024-03-30] MEDS: CLARITIN 10 MG PO (09:09)
[2024-03-30] MEDS: ULTRAM 100 MG PO ×2 (09:15→22:40)
[2024-03-30] MEDS: NOVOLOG FLEXPEN-MODERATE RESISTANCE 1 UNITS SC (09:15)
--- NOTE | 2024-03-30 09:50 | W.PN.PUL.V3 ---
Today's Communication / Plan
-
Wean oxygen
Nebulizers if needed-currently not bronchospastic
Considering high risk PCI
Outpatient pulmonary/sleep disorders follow-up
Assessment
-
Assessment: 68-year-old female with a past medical history of CAD, asthma, reported history of COPD, GERD, DM type II, PAD, former tobacco use disorder and cataracts who presents with SOB for 3-4 weeks. 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 Giordano, on 03/25/[address] depressions concerning for ischemia. She had gone to [facility] for left heart cath showing three-vessel CAD. PCI of the LAD was attempted but unsuccessful and now she
is here at [facility] for further management. Spirometry was done here at [facility] showing a very severe restrictive lung defect with postbronchodilator FVC of 40% predicted. She also had a blood gas showing metabolic alkalosis
with a pH 7.46, pCO2 52. Pulmonary service now consulted for further recommendations/management.
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
Impression:
#Very severe restrictive lung disease - this may be over-estimated given patient positioning and deconditioning during current hospitalization
#Abnormal blood gas with metabolic alkalosis with compensatory respiratory acidosis
#Morbid obesity
#DM type II c/b hyperglycemia (A1C: 8.3)
#Hx of asthma (she does not have COPD as per spirometry on 03/28/2024)
#CAD
#GERD
Plan:
Respiratory status relatively stable at rest
Wean supplemental oxygen
Eventually assess discharge supplemental oxygen needs
Nebulizers if needed-currently not bronchospastic
Aspiration precautions
Incentive spirometry
BiPAP as needed and tolerated
Cardiology and cardiovascular/thoracic surgery following-correspondence reviewed
Now contemplating high risk PCI and not open heart procedure
Moderate to high risk for perioperative pulmonary complications if median sternotomy/thoracotomy/CABG pursued
Monitor closely postoperatively including BiPAP if needed
DVT prophylaxis
Nutrition
Early mobilization
We will arrange to see her in the office to discuss lung cancer screening given her significant tobacco use history as she qualifies for LDCT chest given she quit 7 years ago and smoked >11-jhgx-magx Hx and is between ages 50-77. We will also help
manage her outpatient asthma, pulmonary function test, sleep disordered breathing, etc.
Data:
CT Chest without contrast 03-29-2024:
1. SEVERE CALCIFIC ATHEROSCLEROTIC PLAQUE in the CORONARY ARTERIES.
2. Severe calcific atherosclerotic plaque in the thoracic aorta.
3. Moderate calcification in the aortic valve.
4. Mild scarring in both lungs.
5. Severe right convex curvature of the midthoracic spine with severe multilevel thoracic discogenic degenerative disease.
Spirometry 03/28/2024-FEV1 0.72-41%, FVC 1.15-39%
Subjective Data
-
Date of Service:
Date of Service: March 30, 2024
Chief Complaint: Pulmonary Follow Up and Dyspnea Follow Up
Subjective:
Feels like her breathing has improved, denies any shortness of breath, decreased dyspnea exertion, no chest pain, productive cough, chest congestion or pleurisy
Review of Systems
General: Other (Per HPI)
Objective Data
Data Reviewed
Vital Signs / I&O:
Vital Signs
Temp Pulse Resp BP Pulse Ox
97.9 F 64 20 125/60 95
03/30/24 07:55 03/30/24 07:55 03/30/24 07:55 03/30/24 04:54 03/30/24 07:55
Intake and Output
03/29/24 03/30/24 03/31/24
06:59 06:59 06:59
Intake Total 240 / 240 480 / 480
Balance 240 / 240 480 / 480
SaO2: 95
Nasal Cannula flow liters per minute: 2
Physical Exam
General: Respiratory Distress (n) and Comfortable
HEENT: Normocephalic, Anicteric and Moist Mucous Membranes
Cardiovascular: Regular Rhythm and Murmur
Respiratory: Clear (Diminished breath sounds), Crackles (n), Rhonchi (n), Non-Labored Respirations, Accessory Resp Muscle Use (n) and Stridor (n)
GI: Soft, Non Distended and Non Tender
Neurology: Awake, Alert and No Motor Deficits
Skin: Warm, Good Color, Cyanosis (n), Jaundice (n) and Rash (n)
Labs/Micro/Reports
Laboratory Results
03/29/24 03/29/24 03/30/24
09:46 17:21 00:57
APTT 42.6 H 56.8 H 99.4 H
[2024-03-30] MEDS: HEPARIN 25000 UNITS/250 ML IV (10:39)
[2024-03-30 10:54] LABS: APTT 90.4 Sec (23.4-35.0)
--- NOTE | 2024-03-30 12:41 | CM ---
Chart reviewed. Patient is independent of ADLS, lives with her in a 1 STH, ramp access, 0 DME. Patient may need Home O2, continue to assess. Patient is interested in VN. Referral sent to [facility]. Plan is for the patient to return home
with [facility]. CM to follow
[2024-03-30 13:37] LABS: Glucose - Point of Care 231 mg/dl (70-99)
--- NOTE | 2024-03-30 13:40 | W.PN.CD ---
Today's Communication / Plan
-
Formal PFT's.
Consultation with CT surgery regarding revascularization strategy.
If PCI is selected, we will make NPO after MN and load with clopidogrel.
Impression / Plan
-
Impression/Plan: 68 y/o female with IDDM, HTN, HLD and PAD transferred from [facility] after cardiac catheterization performed for accelerating SOB/PLATA revealed severe, multivessel CAD requiring atherectomy vs. CABG.
#CAD
-New diagnosis.
-Films reviewed. The patient is a candidate for high risk PCI/Atherectomy/lithotripsy given the dense calcification. CABG is the best option for coronary revascularization, but her comorbidities may negate this chcf advantage with high
likelihood of procedure related mortality/morbidity.
-Strategically, the patient's 90% pLAD lesion is the most prognostically significant. Percutaneous options include isolated PCI of only the 90% lesion and medical management of the remainder of the disease, DK crush of the ostial LCx/LAD/LMCA to
address all of the proximal disease (I would be highly suspicious that the LCx would be compromised without dedicated stent, negating a provisional strategy). At this time, I would defer treatment of the mid-LAD lesion and plan to address it
medically or with staged PCI at a later date. In terms of plaque modification, I would favor intracoronary lithotripsy if possible to lessen the risk of no reflow as she is relatively dependent on her LAD.
-It is possible that her symptoms are entirely driven by her COPD/RLD given her lack of chest pain. Another option would be to offer her medical therapy given the high risk of the potential surgery/interventions, understanding that she has a
significant likelihood of /RI.
-Hold antiplatelet therapy at this time.
-Discuss revascularization strategy with CT surgery. We will await their formal assessment.
-Maintain aspirin, metoprolol, rosuvastatin, icosapent ethyl.
#Hypoxic respiratory failure/RLD
-New diagnosis.
-LVEDP 12 mmHg at cath.
-FEV1 = 1.15 L (39%).
-CT chest shows mild bibasilar scarring.
-Pulmonology following.
-Full PFT's ordered/pending.
#HTN
-Chronic, stable.
-Continue HCTZ, metoprolol.
#HLD
-Chronic, stable.
-Total cholesterol = 99, LDL = 27, HDL = 39, Triglycerides = 166.
-Continue rosuvastatin and icosapent ethyl.
-Goal LDL < 55, Triglycerides < 150.
#IDDM
-Chronic, uncontrolled.
-HbA1c = 8.3%.
-SSI per primary team.
-Hold metformin in anticipation of possible catheterization.
-She would benefit from GLP-1 agonist as an outpatient.
#PAD
-Chronic, stable.
-Lipid lower therapy as above.
Subjective/Interval History:
No acute events.
Remains dyspneic with exertion.
Remains on 2LNC.
Pulmonology consulted and following.
Cath report reviewed. LVEDP 12 mmHg.
DATA:
CT Chest, 03/29/2024:
IMPRESSION:
1. SEVERE CALCIFIC ATHEROSCLEROTIC PLAQUE in the CORONARY ARTERIES.
2. Severe calcific atherosclerotic plaque in the thoracic aorta.
3. Moderate calcification in the aortic valve.
4. Mild scarring in both lungs.
5. Severe right convex curvature of the midthoracic spine with severe multilevel thoracic discogenic degenerative disease.
TTE, 03/25/2024:
CONCLUSIONS
1. Technically difficult study making assessment of wall motion less reliable.
Grossly, LV function is normal with an estimated ejection fraction of 60%. A
localized wall motion abnormality could not be excluded.
2. Normal RV function.
3. Mildly increased transaortic gradient of 21 mm peak 14 mm mean with a
calculated aortic valve area of 1.5 cm2. Findings compatible with the presence
of mild aortic stenosis. No aortic insufficiency was detected.
4. Moderate aortic root sclerosis.
5. Normal chamber sizes.
6. No other significant valvular disease is detected.
Physical Exam
Vital Signs/Labs
Vital Signs
Temp Pulse Resp BP Pulse Ox
36.7 C 64 18 115/47 95
03/30/24 11:37 03/30/24 12:30 03/30/24 11:37 03/30/24 11:41 03/30/24 11:37
03/29/24 03/30/24 03/31/24
11:59 11:59 11:59
Actual Weight 95.7 kg 95.5 kg
PT 13.6 Sec (11.4-14.6) 03/28/24 13:11
INR 1.06 03/28/24 13:11
APTT 90.4 Sec (23.4-35.0) H 03/30/24 10:24
Magnesium 1.9 mg/dl (1.6-2.3) 03/28/24 04:21
Triglycerides 166 mg/dl (10-149) H 03/28/24 04:21
LDL Cholesterol, Calc 27 mg/dl 03/28/24 04:21
VLDL Cholesterol, Calc 33 mg/dl (0-30) H 03/28/24 04:21
HDL Cholesterol 39 mg/dl 03/28/24 04:21
03/28/24
04:21
[id number]-Vecojmeuqoa Pept 406
Physical Exam
Constitutional: No acute distress and Comfortable
EENT: Anicteric and Moist mucous membranes
Cardiovascular: Rhythm & rate is regular, Pedal edema is absent, JVD pressure is normal, Systolic murmur present and S1S2 is normal
Respiratory: Respiratory effort normal and Other (Decreased throughout.)
GI: Soft, Distention absent, Flat, Non tender and Normal bowel sounds
Neuro/Psych: AO x 3
Data Reviewed
-
Date of Service: March 30, 2024
Medical Decision Making: Reviewed Test Results, Independent Historian Assessment, Test Interpretation and Review of Case with other Provider
EKG: Tracing Personally Visualized and interpreted and Report Reviewed by me
Echo: Report Reviewed by me
X-Ray/CT/US/MRI/NUC/PET: Image Personally Visualized and interpreted and Report Reviewed by me
Medical Tests (PFT, Pathology etc): Image Personally Visualized and interpreted, Report Reviewed by me, Discussed with Physician, Discussed with Nurse and Discussed with Patient
Labs: Labs Reviewed by me
Old Records: Reviewed
[2024-03-30] MEDS: NOVOLOG FLEXPEN-MODERATE RESISTANCE 3 UNITS SC ×2 (13:43→17:52)
[2024-03-30 13:45] LABS: Hematocrit 41.2 % (37.0-47.0); Hemoglobin 13.8 g/dL (12.0-16.0); Mean Corp Hgb Conc. 33.5 g/dL (33.0-37.0); Mean Corpuscular Hgb 28.9 pg (27.0-31.0); Mean Corpuscular Volume 86.4 fL (81.0-99.0); Mean Platelet Volume 10.3 fL (7.4-10.4); Platelet Count 197 10^3/uL (130-400); Red Blood Cell Count 4.77 10^6/uL (4.20-5.40); Red Cell Dist. Width 14.3 % (11.5-14.5); White Blood Cell Count 11.6 10^3/uL (4.8-10.8)
[2024-03-30 14:35] LABS: Blood Urea Nitrogen 18 mg/dl (7-17); Calcium 9.1 mg/dl (8.4-10.2); Carbon Dioxide 32 mmol/L (22-30); Chloride 95 mmol/L (98-107); Estimated Creatinine Clearance 102 ml/min; Glucose 233 mg/dl (70-99); Magnesium 1.6 mg/dl (1.6-2.3); Potassium 4.4 mmol/L (3.5-5.1); Sodium 136 mmol/L (135-145); eGFR > 60.00
[2024-03-30 17:46] LABS: Glucose - Point of Care 222 mg/dl (70-99)
[2024-03-30] MEDS: NON-FORMULARY ITEM 2 GM PO (17:52)
[2024-03-30 21:36] LABS: Glucose - Point of Care 361 mg/dl (70-99)
[2024-03-30] MEDS: LANTUS 0.599999999999999978 UNITS SC (22:35)
[2024-03-30] MEDS: MIRALAX 17 GRAMS PO (22:35)
[2024-03-31] VITALS (13 sets, daily range): BP systolic 76–163; BP diastolic 48–82
[2024-03-31] MEDS: HEPARIN 25000 UNITS/250 ML IV (01:42)
[2024-03-31 05:15] LABS: APTT 38.2 Sec (23.4-35.0)
--- NOTE | 2024-03-31 05:35 | W.PN.CT ---
Addendum entered and electronically signed by Carlos Hernández MD 03/31/24 08:57:
CARDIAC SURGERY ATTENDING:
In addition to my review, this patient's case was graciously reviewed by my surgical colleagues. There is a consensus that given this patient's comorbidities, surgical intervention for her CAD will be a near prohibitive risk. She has significant
lung disease with a 73-vuns-gmdw smoking history, and is my belief that her lung disease is more responsible for her symptomatology than her CAD. Ongoing review of her case by my interventional cardiology colleagues will determine if PCI is
warranted versus ongoing medical therapy for her CAD.
Original Note:
Today's Communication / Plan
-
Plan:
-No issues overnight
-Initiated on heparin gtt on 03/28
-CT Surgeon to evaluate films and assess pt for surgical candidacy
-For possible high risk PCI, Cardiology following
-Pulm. following and recommends full PFTs performed in PFT lab with pre and post bronchodilator spirometry, lung volumes + diffusion capacity
-Will consider diabetes education/management consult given hgb A1C of 8.3
-Ongoing discussion/evaluation
-Will cont. to closely monitor
Assessment / Plan
-
Assessment:
-Severe 3v CAD/20-30% distal LM
-PLATA
-Mild aortic stenosis
-Moderate aortic root sclerosis, per echo @ Dr. Giordano's office
-Scoliosis with severe right convex curvature of the midthoracic spine
-Restrictive lung disease FEV1 (0.85, 37%)
-Former tobacco abuse (quit 7 years ago (2pks/yr since age 25 and quit @ age 61; 72/pkyr)
-Asthma
-Hypoxemia per ABG 03/29 with Pao2 56 L
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
-Class 2 obesity (BMI 36.6)
-HLD
-HTN
-Severe PAD with claudication (Left SFA with 75% stenosis)
-Seasonal allergies
-GERD
-Diverticulosis
-Chronic neck and back pain
-S/p C4/C5 discectomy
-S/P b/l rotator cuff repair
-S/P x 3
-S/P Hysterectomy
-S/P Incisional and Umbilical hernia repair
Discussed patient care with: Cardiology, Nursing, Pharmacy and Care Team
Subjective
-
Date of Service: March 31, 2024
Pt offers no complaints, denies CP/SOB
Objective Data
-
Lab Results
03/30/24 13:37
03/30/24 13:37
PT 13.6 Sec (11.4-14.6) 03/28/24 13:11
INR 1.06 03/28/24 13:11
APTT 38.2 Sec (23.4-35.0) H 03/31/24 04:49
Vital Signs
Vital Signs
Temp Pulse Resp BP Pulse Ox
98.0 F 56 20 154/56 93
03/30/24 23:48 03/31/24 05:15 03/30/24 23:48 03/30/24 22:44 03/30/24 23:48
CT Intake/Output/Weight
03/30/24 03/30/24 03/31/24
06:59 18:59 06:59
Intake Total 480 / 480
Balance 480 / 480
SaO2: 93
Physical Exam
-
General: Awake, Oriented and AOx3
Cardiovascular: Regular rate & rhythm, Murmur (1-2/6) and No Rub
Respiratory: Decreased Breath Sounds
Extremities: Other (+trace edema)
Data Reviewed
-
Lab Results: Results Reviewed
Medications: Active Meds Reviewed
Chest X-Ray: Report Reviewed and Image Reviewed
ECG: Report Reviewed and Image Reviewed
[2024-03-31 07:31] LABS: Glucose - Point of Care 228 mg/dl (70-99)
[2024-03-31] MEDS: CRESTOR 20 MG PO (08:01)
[2024-03-31] MEDS: LYRICA 50 MG PO ×3 (08:01→23:04)
[2024-03-31] MEDS: TOPROL XL 50 MG PO (08:02)
[2024-03-31] MEDS: ASPIR LOW (ENTERIC COATED) 81 MG PO (08:02)
[2024-03-31] MEDS: CLARITIN 10 MG PO (08:02)
[2024-03-31] MEDS: GLUCOPHAGE 500 MG PO (08:02)
[2024-03-31] MEDS: ORETIC 25 MG PO (08:03)
[2024-03-31] MEDS: BENTYL 20 MG PO ×3 (08:03→23:04)
[2024-03-31] MEDS: MIRALAX PO (08:04)
[2024-03-31] MEDS: NON-FORMULARY ITEM 2 GM PO ×2 (08:04→16:42)
[2024-03-31] MEDS: ULTRAM 100 MG PO ×2 (08:05→18:30)
[2024-03-31] MEDS: ADVAIR HFA 230/21 MCG INHALER 1 PUFF INH ×2 (08:05→20:42)
[2024-03-31] MEDS: NOVOLOG FLEXPEN-MODERATE RESISTANCE 3 UNITS SC (08:06)
--- NOTE | 2024-03-31 08:29 | W.PN.CD ---
Today's Communication / Plan
-
PFT's this morning.
Discuss with CT surgery post PFT's.
PCI vs. CABG.
Impression / Plan
-
Impression/Plan: 68 y/o female with IDDM, HTN, HLD and PAD transferred from [facility] after cardiac catheterization performed for accelerating SOB/PLATA revealed severe, multivessel CAD requiring atherectomy vs. CABG.
#CAD
-New diagnosis.
-Films reviewed. The patient is a candidate for high risk PCI/Atherectomy/lithotripsy given the dense calcification. CABG is the best option for coronary revascularization, but her comorbidities may negate this salvage determiner advantage with high
likelihood of procedure related mortality/morbidity.
-Strategically, the patient's 90% pLAD lesion is the most prognostically significant. Percutaneous options include isolated PCI of only the 90% lesion and medical management of the remainder of the disease, DK crush of the ostial LCx/LAD/LMCA to
address all of the proximal disease (I would be highly suspicious that the LCx would be compromised without dedicated stent, negating a provisional strategy). At this time, I would defer treatment of the mid-LAD lesion and plan to address it
medically or with staged PCI at a later date. In terms of plaque modification, I would favor intracoronary lithotripsy if possible to lessen the risk of no reflow as she is relatively dependent on her LAD.
-It is possible that her symptoms are entirely driven by her COPD/RLD given her lack of chest pain. Another option would be to offer her medical therapy given the high risk of the potential surgery/interventions, understanding that she has a
significant likelihood of /KS.
-Hold antiplatelet therapy at this time.
-Maintain aspirin, metoprolol, rosuvastatin, icosapent ethyl.
-Discuss revascularization strategy with CT surgery after PFT's. If surgery is deferred, we will opt to proceed with intracoronary lithotripsy/PCI of the 90% pLAD lesion.
#Hypoxic respiratory failure/RLD
-New diagnosis.
-LVEDP 12 mmHg at cath.
-FEV1 = 1.15 L (39%).
-CT chest shows mild bibasilar scarring.
-Pulmonology following.
-Full PFT's ordered/pending. This will largely determine our revascularization strategy.
#HTN
-Chronic, stable.
-Continue HCTZ, metoprolol.
#HLD
-Chronic, stable.
-Total cholesterol = 99, LDL = 27, HDL = 39, Triglycerides = 166.
-Continue rosuvastatin and icosapent ethyl.
-Goal LDL < 55, Triglycerides < 150.
#IDDM
-Chronic, uncontrolled.
-HbA1c = 8.3%.
-SSI per primary team.
-Hold metformin in anticipation of possible catheterization.
-She would benefit from GLP-1 agonist as an outpatient.
#PAD
-Chronic, stable.
-Lipid lower therapy as above.
Subjective/Interval History:
Weaned to room air. SaO2 90-92%.
PFT's pending. Scheduled for 10 AM this morning.
DATA:
CT Chest, 03/29/2024:
IMPRESSION:
1. SEVERE CALCIFIC ATHEROSCLEROTIC PLAQUE in the CORONARY ARTERIES.
2. Severe calcific atherosclerotic plaque in the thoracic aorta.
3. Moderate calcification in the aortic valve.
4. Mild scarring in both lungs.
5. Severe right convex curvature of the midthoracic spine with severe multilevel thoracic discogenic degenerative disease.
TTE, 03/25/2024:
CONCLUSIONS
1. Technically difficult study making assessment of wall motion less reliable.
Grossly, LV function is normal with an estimated ejection fraction of 60%. A
localized wall motion abnormality could not be excluded.
2. Normal RV function.
3. Mildly increased transaortic gradient of 21 mm peak 14 mm mean with a
calculated aortic valve area of 1.5 cm2. Findings compatible with the presence
of mild aortic stenosis. No aortic insufficiency was detected.
4. Moderate aortic root sclerosis.
5. Normal chamber sizes.
6. No other significant valvular disease is detected.
Physical Exam
Vital Signs/Labs
Vital Signs
Temp Pulse Resp BP Pulse Ox
36.9 C 68 16 142/66 90
03/31/24 06:53 03/31/24 08:26 03/31/24 08:26 03/31/24 07:00 03/31/24 06:53
03/29/24 03/30/24 03/31/24
11:59 11:59 11:59
Actual Weight 95.7 kg 95.5 kg
03/30/24 13:37
03/30/24 13:37
PT 13.6 Sec (11.4-14.6) 03/28/24 13:11
INR 1.06 03/28/24 13:11
APTT 38.2 Sec (23.4-35.0) H 03/31/24 04:49
Magnesium 1.6 mg/dl (1.6-2.3) 03/30/24 13:37
Triglycerides 166 mg/dl (10-149) H 03/28/24 04:21
LDL Cholesterol, Calc 27 mg/dl 03/28/24 04:21
VLDL Cholesterol, Calc 33 mg/dl (0-30) H 03/28/24 04:21
HDL Cholesterol 39 mg/dl 03/28/24 04:21
03/28/24
04:21
Fsg-A-[id number] Pept 406
Physical Exam
Constitutional: No acute distress and Comfortable
EENT: Anicteric and Moist mucous membranes
Cardiovascular: Rhythm & rate is regular, Pedal edema is absent, JVD pressure is normal, S1S2 is normal and Murmur/rub/gallop absent
Respiratory: Respiratory effort normal and Other (Decreased throughout.)
GI: Soft, Distention absent, Flat, Non tender and Normal bowel sounds
Neuro/Psych: AO x 3
Data Reviewed
-
Date of Service: March 31, 2024
Medical Decision Making: Reviewed Test Results, Independent Historian Assessment, Test Interpretation and Review of Case with other Provider
EKG: Tracing Personally Visualized and interpreted and Report Reviewed by me
Echo: Tracing Personally Visualized and interpreted and Report Reviewed by me
X-Ray/CT/US/MRI/NUC/PET: Image Personally Visualized and interpreted and Report Reviewed by me
Medical Tests (PFT, Pathology etc): Image Personally Visualized and interpreted and Report Reviewed by me
Labs: Labs Reviewed by me
Old Records: Reviewed
--- NOTE | 2024-03-31 10:19 | W.PN.PUL.V3 ---
Today's Communication / Plan
-
Wean oxygen
Continue inhalers and nebulizers as needed
Cardiology contemplating high risk PCI versus medical therapy
Outpatient pulmonary follow-up
Assessment
-
Assessment: 68-year-old female with a past medical history of CAD, asthma, reported history of COPD, GERD, DM type II, PAD, former tobacco use disorder and cataracts who presents with SOB for 3-4 weeks. 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 Giordano, on 03/25/[address] depressions concerning for ischemia. She had gone to [facility] for left heart cath showing three-vessel CAD. PCI of the LAD was attempted but unsuccessful and now she
is here at [facility] for further management. Spirometry was done here at [facility] showing a very severe restrictive lung defect with postbronchodilator FVC of 40% predicted. She also had a blood gas showing metabolic alkalosis
with a pH 7.46, pCO2 52. Pulmonary service now consulted for further recommendations/management.
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
Impression:
#Very severe restrictive lung disease - this may be over-estimated given patient positioning and deconditioning during current hospitalization
# COPD
#Former cmulfs-43-kupy-year
#Abnormal blood gas with metabolic alkalosis with compensatory respiratory acidosis
#Morbid obesity
#DM type II c/b hyperglycemia (A1C: 8.3)
#Hx of asthma (she does not have COPD as per spirometry on 03/28/2024)
#CAD
#GERD
Plan:
Her pulmonary status is relatively stable
Wean supplemental oxygen
Eventually assess discharge supplemental oxygen needs
Nebulizers if needed-currently not bronchospastic
Aspiration precautions
Incentive spirometry
BiPAP as needed and tolerated
Cardiology and cardiovascular/thoracic surgery following-correspondence reviewed
Cardiovascular surgery feels surgical intervention is prohibitive given patient's comorbidities, severe lung disease and 27-vjqf-pxds smoking history
Now contemplating high risk PCI and not open heart procedure
Once again the pulmonary team feels she is at moderate to high risk for perioperative pulmonary complications if median sternotomy/thoracotomy/CABG pursued-agree with cardiovascular surgery
DVT prophylaxis-on heparin
Nutrition
Early mobilization
We will arrange to see her in the office to discuss lung cancer screening given her significant tobacco use history as she qualifies for LDCT chest given she quit 7 years ago and smoked >16-jpal-doae Hx and is between ages 50-77. We will also help
manage her outpatient asthma, pulmonary function test, sleep disordered breathing, etc.
Data:
CT Chest without contrast 03-29-2024:
1. SEVERE CALCIFIC ATHEROSCLEROTIC PLAQUE in the CORONARY ARTERIES.
2. Severe calcific atherosclerotic plaque in the thoracic aorta.
3. Moderate calcification in the aortic valve.
4. Mild scarring in both lungs.
5. Severe right convex curvature of the midthoracic spine with severe multilevel thoracic discogenic degenerative disease.
Spirometry 03/28/2024-FEV1 0.72-41%, FVC 1.15-39%
Subjective Data
-
Date of Service:
Date of Service: March 31, 2024
Chief Complaint: Pulmonary Follow Up and Dyspnea Follow Up
Subjective:
Feels about the same, has some dyspnea on exertion, no chest pain, chest tightness, wheezing, productive cough or abdominal pain
Review of Systems
General: Other (Per HPI)
Objective Data
Data Reviewed
Vital Signs / I&O:
Vital Signs
Temp Pulse Resp BP Pulse Ox
98.4 F 68 16 142/66 90
03/31/24 06:53 03/31/24 08:26 03/31/24 08:26 03/31/24 07:00 03/31/24 06:53
Intake and Output
03/30/24 03/31/24 04/01/24
06:59 06:59 06:59
Intake Total 480 / 480 240 / 240
Balance 480 / 480 240 / 240
SaO2: 90
Nasal Cannula flow liters per minute: 2
Physical Exam
General: Respiratory Distress (n) and Comfortable
HEENT: Normocephalic, Anicteric and Moist Mucous Membranes
Cardiovascular: Regular Rhythm and Murmur
Respiratory: Clear (Diminished breath sounds), Crackles (n), Rhonchi (n), Non-Labored Respirations, Accessory Resp Muscle Use (n) and Stridor (n)
GI: Soft, Non Distended and Non Tender
Neurology: Awake, Alert and No Motor Deficits
Skin: Warm, Good Color, Cyanosis (n), Jaundice (n) and Rash (n)
Labs/Micro/Reports
Lab Data
03/30/24 13:37
03/30/24 13:37
Laboratory Results
03/30/24 03/31/24
04:49
APTT 90.4 H 38.2 H
--- NOTE | 2024-03-31 11:18 | W.PN.UPDATE ---
Update Note
Progress Note Update
Reviewed pulmonary status and case extensively with Dr. Trinidad from cardiology
Full PFTs were interpreted-FEV1 810 mL - 49%, FVC 1.42-51%, no significant BD response, TLC 66%, RV 94%, DLCO 49%, DLCO/VA 58%-moderate restriction with moderate reduction in diffusing capacity
From a pulmonary perspective median life expectancy is well over 12 months and patient can proceed with high risk 90% LAD PCI
--- NOTE | 2024-03-31 11:25 | CM ---
Chart reviewed. Patient's family at bedside. Patient getting PFTs. Plan is CABG vs PCI. Workup continues. Plan is for the patient to return home with Shikha SAHU CM to follow
[2024-03-31 11:52] LABS: Glucose - Point of Care 161 mg/dl (70-99)
[2024-03-31] MEDS: NOVOLOG FLEXPEN-MODERATE RESISTANCE 1 UNITS SC (11:55)
[2024-03-31] MEDS: NSS 1000 IV (13:36)
--- NOTE | 2024-03-31 14:47 | ITS.CL.ANGIO ---
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
Angioplasty
Procedure Report:
CARDIAC CATHETERIZATION REPORT
Date of Procedure: 03/31/2024
Referring: Radu Giordano M.D.
Indication: Staged PCI, surgical turndown.
PROCEDURE:
1. Right heart catheterization.
2. Left heart catheterization.
3. Coronary angiography.
4. Successful intracoronary lithotripsy of the 90% proximal LAD lesion.
5. Successful PCI of the 90% proximal LAD lesion.
ACCESS:
7 Hungarian right common femoral artery using a modified Seldinger technique with a micropuncture kit under ultrasound guidance.
5 Hungarian right common femoral vein using a modified Seldinger technique with a micropuncture kit under ultrasound guidance.
CATHETERS:
1. 5 Hungarian balloon wedge.
2. 7 Hungarian JL 4 guiding catheter.
HEMODYNAMIC DATA
Weight (kg): 95.3
AO (s/d/x mmHg): 166/69/101
LV (s/x mmHg): 179/32
PCWP (a/v/x mmHg): 34/42/32
PA (s/d/x mmHg): 61/37/45
RV (s/x mmHg): 61/24
RA (a/v/x mmHg): 25/26/24
SVC SvO2 (%): 76.8
PA SvO2 (%): 70.8
SaO2 (%): 96.3
Hbg (g/dL): 13.5
CO (L/min): 3.78
CI (L/min/m2): 1.89
TPG (mmHg): 13
PVR (Gallagher Units): 3.44
SVR (dynes*seconds*cm^-5): 1630
AVO2 Diff (Volume %): 4.68
AV gradient (x, mmHg): 8.75
AV area (cm2): 1.46
LEFT VENTRICULOGRAPHY: Not performed.
CORONARY ANGIOGRAPHY
Dominance: Right.
Left Main: Normal size, bifurcating vessel. There is some distal tapering appreciated on prior cardiac catheterization.
LAD: Normal size vessel giving rise to 2 diagonals. There is a densely calcified, 90% nodular lesion in the proximal vessel. There is a Schumacher 1, 1, 170% lesion in the mid LAD, spanning the origin of the second diagonal. The entire artery is
densely calcified.
Ramus: Congenitally absent.
Circumflex: Normal size, nondominant vessel giving rise to 2 obtuse marginals. There is a 50-60% lesion in the ostium of the circumflex. OM1 is a small, 1 mm vessel. OM 2 is a substantial vessel with a 40% lesion in the its proximal margin.
RCA: Not injected. Known to be chronically totally occluded. The RPDA and distal RCA is supplied by collaterals from the LAD and circumflex.
INTERVENTIONS
1. Successful intracoronary lithotripsy of the densely calcified, 90% nodular proximal LAD lesion (4.0 x 12 shockwave balloon).
2. Successful PCI of the 90% proximal LAD lesion (Medtronic Cameron Trenton 4.0 x 15 JOSE, postdilated with a 4.0 NC balloon throughout and a 4.5 x 8 NC balloon in the proximal margin) with reduction in stenosis to 10-20%, maintaining JAMAL-3 flow.
Narrative:
The decision was made to proceed with percutaneous coronary intervention. A 7Fr EBU 3.75 guiding catheter was advanced to the aortic root but would not sit in the coronary ostium. The EBU 3.75 was removed and a 7 Hungarian JL 4 guiding catheter and
seated in the left main coronary artery. Additional heparin was given and a Power Turn Flex wire was advanced into the distal LAD. A 2.0 x 12 balloon was advanced along with a 6 Hungarian guide liner. The balloon was advanced into the mid LAD and the
guide liner was advanced along with it. Unfortunately, the guide liner would not advance beyond the 90% lesion. At this time, we took the opportunity to prepare the 4.0 x 12 shockwave balloon. The 90% proximal LAD lesion was predilated with a 2.0
x 12 semi-compliant balloon to 12 fahad. As the balloon was deflated, the GuideLiner was advanced and the sheath in technique, moving into the mid LAD, beyond the 90% LAD lesion.
A Shockwave 4.0 x 12 coronary lithotripsy balloon was advanced over the wire and into the 90% proximal LAD lesion. The GuideLiner was pulled back into the guide to an sheath the shockwave balloon. The balloon was sterilely connected to the
controller and prepped to negative pressure. Meticulous care was taken while positioning the shockwave balloon. Once in satisfactory position, the balloon was inflated to 4 fahad. After confirming good contact with the vessel wall, 10 pulses were
delivered. After delivering 10 pulses, the balloon was inflated to 6 fahad then deflated. The entire lesion was treated in a similar manner for total of 12 rounds.
The shockwave balloon was withdrawn and a 4.0 x 12 noncompliant balloon was advanced. The proximal LAD lesion was dilated to 12 fahad. Once again, the balloon was sheath by the GuideLiner on deflation.
The noncompliant balloon was removed and a Medtronic Twan Trenton 4.0 x 15 drug-eluting stent was advanced. The stent was deployed at 12 atmospheres. The stent balloon was removed. Angiography showed good stent apposition with a 30-40% residual
stenosis present at the densely calcified segment of the artery. A 4.0 x 12 Medtronic Euphora noncompliant balloon was advanced into the stent and the stent was postdilated to 16 atmospheres in the proximal margin and 22 fahad in the residual
stenosis. Balloon expansion was generally satisfactory, though residual dimpling remained. The 4.0 x 12 Medtronic Euphora balloon was withdrawn and a 4.5 x 8 noncompliant balloon was advanced. The residual stenosis was postdilated again to 24
fahad. Angiography was performed in orthogonal views, confirming good stent apposition with a residual 10-20% stenosis and an excellent angiographic result. The coronary wire was withdrawn and the guide was disengaged from the artery. The catheter
was removed over a standard J-wire.
Closure Device: 6 Hungarian Angio-Seal for the right common femoral artery, manual pressure for the right common femoral vein.
Radiation dose (mGy): 1127.57
DAP (cm2.Gy): 90.9380
Fluoroscopy time (minutes): 21.4
Sedation time (minutes): 77
CONCLUSIONS:
1. Right dominant circulation with chronic total occlusion of the RCA, collateralized by the left system, tapering of the distal left main, a 50-60% lesion in the ostium of the circumflex, 40% lesion in the proximal margin of OM1, a Schumacher 1, 1,
170% lesion in the mid LAD spanning the origin of the second diagonal and a densely calcified, 90% nodular lesion in the proximal LAD, status post successful intracoronary lithotripsy (4.0 x 12 shockwave balloon) and PCI (Medtronic Twan Trenton 4.0
x 15 JOSE, postdilated with a 4.0 NC balloon throughout and a 4.5 x 8 NC balloon in the proximal margin) with reduction in stenosis to 10-20%, maintaining JAMAL-3 flow.
2. Severely elevated filling pressures (LVEDP = 32 mmHg, PCWP = 32 mmHg at 95.3 kg).
3. Moderate pre and postcapillary pulmonary hypertension (PA = 60 1/37/45, PVR = 3.44 Gallagher units), WHO group 2 and likely WHO group 3.
4. Depressed cardiac output (3.78 L/min) and index (1.89 L/min/m�) with normal AV O2 difference (4.68 volume %).
RECOMMENDATIONS:
1. Expectant management after cardiac catheterization via right common femoral approach.
2. Limited weight bearing for one week.
3. Dual antiplatelet therapy with aspirin and clopidogrel for at least 12 months, followed by aspirin indefinitely.
4. Aggressive diuresis.
5. Guideline directed medical therapy as hemodynamics will tolerate.
6. Aggressive secondary prevention with high-dose, high potency statin.
7. Monitoring the patient for persistent symptoms that would require repeat cardiac catheterization. The patient has been discussed at length with her primary bulker (Dr. Giordano). If the patient were to have significant residual anginal
equivalency, we could consider PCI of the LAD bifurcation lesion with the 2, though we must recognize that this would come with the potential cost of sacrificing D2. As previously described, she is not an operative candidate.
8. Referral to cardiac rehab.
Copy to: Radu Giordano M.D., Riccardo Sinclair M.D., Johnson Nunez M.D.
Basilio Abreu DO, FACC, FACP
[2024-03-31 15:07] LABS: Hepatitis C Antibody Negative (Negative)
[2024-03-31] MEDS: NOVOLOG FLEXPEN-MODERATE RESISTANCE SC (16:41)
[2024-03-31 16:42] LABS: Glucose - Point of Care 121 mg/dl (70-99)
[2024-03-31 23:03] LABS: Glucose - Point of Care 198 mg/dl (70-99)
[2024-03-31] MEDS: LANTUS 0.599999999999999978 UNITS SC (23:04)
--- NOTE | 2024-04-01 02:51 | PTCARENOTE ---
Pt AAOx3 w/no c/o CP or SOB. Pt does have chronic low back for which pt gets scheduled Ly[facility]. Pt's VS stable w/HR in the 60's-70's & BP at 2245 119/59. Pt's O2 sats on 2L 95-96%. Pt w/ R groin access site from earlier cath w/dressing C/D/I w/no
signs or symptoms of bleeding or hematoma. Pt anticipating D/C to home possibly today, Saturday. Pt w/call marcus within reach & plan of care ongoing.
[2024-04-01 03:49] VITALS: BP 113/86
[2024-04-01 04:45] LABS: Hematocrit 40.9 % (37.0-47.0); Hemoglobin 13.9 g/dL (12.0-16.0); Mean Corpuscular Hgb 29.2 pg (27.0-31.0); Mean Corpuscular Volume 85.9 fL (81.0-99.0); Mean Platelet Volume 10.5 fL (7.4-10.4); Platelet Count 194 10^3/uL (130-400); Red Blood Cell Count 4.76 10^6/uL (4.20-5.40); Red Cell Dist. Width 14.1 % (11.5-14.5); White Blood Cell Count 10.7 10^3/uL (4.8-10.8)
[2024-04-01 05:16] LABS: Blood Urea Nitrogen 25 mg/dl (7-17); Carbon Dioxide 35 mmol/L (22-30); Chloride 92 mmol/L (98-107); Estimated Creatinine Clearance 102 ml/min; Glucose 164 mg/dl (70-99); Potassium 3.9 mmol/L (3.5-5.1); Sodium 138 mmol/L (135-145); eGFR > 60.00
--- NOTE | 2024-04-01 05:21 | W.PN.CT ---
Today's Communication / Plan
-
Plan:
-S/p Successful PCI with Lithotripsy/JOSE to prox LAD, by Dr. Abreu, 03/31/24
-Home later today vs tomorrow
Assessment / Plan
-
Assessment:
-Severe 3v CAD/20-30% distal LM S/P unsuccessful attempted PCI of LAD @ [facility]
-S/p PCI with Lithotripsy/JOSE to prox LAD, by Dr. Abreu, 03/31/24
-PLATA
-Mild aortic stenosis
-Moderate aortic root sclerosis, per echo @ Dr. Giordano's office
-Scoliosis with severe right convex curvature of the midthoracic spine
-Restrictive lung disease FEV1 (0.85, 37%)
-Former tobacco abuse (quit 7 years ago (2pks/yr since age 25 and quit @ age 61; 73/pkyr)
-Asthma
-Hypoxemia per ABG 03/29 with Pao2 56 L
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
-Class 2 obesity (BMI 36.6)
-HLD
-HTN
-Severe PAD with claudication (Left SFA with 75% stenosis)
-Seasonal allergies
-GERD
-Diverticulosis
-Chronic neck and back pain
-S/p C4/C5 discectomy
-S/P b/l rotator cuff repair
-S/P x 3
-S/P Hysterectomy
-S/P Incisional and Umbilical hernia repair
Discussed patient care with: Cardiology, Nursing, Respiratory Therapy, Pharmacy and Care Team
Subjective
-
Date of Service: April 01, 2024
No issues overnight. Denies CP/SOB
Objective Data
-
Lab Results
04/01/24 04:03
04/01/24 04:03
PT 13.6 Sec (11.4-14.6) 06/08/24 13:11
INR 1.06 03/28/24 13:11
APTT Cancelled 03/31/24 11:40
Vital Signs
Vital Signs
Temp Pulse Resp BP Pulse Ox
99.0 F 69 20 113/86 95
04/01/24 03:49 04/01/24 04:45 04/01/24 03:49 04/01/24 03:49 04/01/24 03:49
CT Intake/Output/Weight
03/31/24 03/31/24 04/01/24
06:59 18:59 06:59
Intake Total 240 / 240 700 / 1420 720 / 1420
Output Total 1350 / 1350
Balance 240 / 240 -650 / 70 720 / 70
SaO2: 95 (2L)
Physical Exam
-
General: Awake, Oriented and AOx3
Cardiovascular: Regular rate & rhythm, Murmur (1-2/6) and No Rub
Respiratory: Decreased Breath Sounds
Sternum: Stable
Incision: Clean, Dry, Intact and Dressing Intact
Extremities: Other (+trace edema)
Data Reviewed
-
Lab Results: Results Reviewed
Medications: Active Meds Reviewed
Chest X-Ray: Report Reviewed and Image Reviewed
ECG: Report Reviewed and Image Reviewed
[2024-04-01 05:50] VITALS: BMI 35.7
[2024-04-01 07:05] VITALS: BP 147/63
[2024-04-01 07:46] LABS: Glucose - Point of Care 182 mg/dl (70-99)
[2024-04-01 07:51] LABS: ACT-LR - POC > 397 Seconds (116-155)
[2024-04-01 07:51] LABS: ACT-LR - POC > 397 Seconds (116-155)
[2024-04-01] MEDS: ADVAIR HFA 230/21 MCG INHALER 1 PUFF INH ×2 (08:06→19:25)
[2024-04-01] MEDS: NOVOLOG FLEXPEN-MODERATE RESISTANCE 1 UNITS SC (09:11)
[2024-04-01] MEDS: LYRICA 50 MG PO ×3 (09:12→22:12)
[2024-04-01] MEDS: TOPROL XL 50 MG PO (09:12)
[2024-04-01] MEDS: ORETIC 25 MG PO (09:13)
[2024-04-01] MEDS: CLARITIN 10 MG PO (09:13)
[2024-04-01] MEDS: BENTYL 20 MG PO ×3 (09:13→22:12)
[2024-04-01] MEDS: PLAVIX 75 MG PO (09:13)
[2024-04-01] MEDS: ASPIR LOW (ENTERIC COATED) 81 MG PO (09:13)
[2024-04-01] MEDS: CRESTOR 20 MG PO (09:13)
[2024-04-01] MEDS: MIRALAX PO (09:14)
[2024-04-01] MEDS: NON-FORMULARY ITEM 2 GM PO ×2 (09:14→18:18)
[2024-04-01] MEDS: ULTRAM 100 MG PO ×3 (09:22→22:11)
--- NOTE | 2024-04-01 09:27 | W.PN.PUL.V3 ---
Today's Communication / Plan
-
Did well with cardiac catheterization
Aggressive diuresis
Wean oxygen
Assess discharge supplemental oxygen needs
Outpatient pulmonary/sleep disorders follow-up
Assessment
-
Assessment: 68-year-old female with a past medical history of CAD, asthma, reported history of COPD, GERD, DM type II, PAD, former tobacco use disorder and cataracts who presents with SOB for 3-4 weeks. 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
medical assistant internal medicine office, Dr. Giordano, on 03/25/[address] depressions concerning for ischemia. She had gone to [facility] for left heart cath showing three-vessel CAD. PCI of the LAD was attempted but unsuccessful and now she
is here at [facility] for further management. Spirometry was done here at [facility] showing a very severe restrictive lung defect with postbronchodilator FVC of 40% predicted. She also had a blood gas showing metabolic alkalosis
with a pH 7.46, pCO2 52. Pulmonary service now consulted for further recommendations/management.
Chronic conditions ETL PROGRAMMER: Asthma, CAD, reported history of COPD, GERD, hypertension, hypercholesterolemia, DM type II, PAD, obesity, former tobacco use disorder, IBS, cataracts
Impression:
#Very severe restrictive lung disease - this may be over-estimated given patient positioning and deconditioning during current hospitalization
# COPD
#Former [id number]
#Abnormal blood gas with metabolic alkalosis with compensatory respiratory acidosis
#Morbid obesity
#DM type II c/b hyperglycemia (A1C: 8.3)
#Hx of asthma (she does not have COPD as per spirometry on 03/28/2024)
#CAD
#GERD
Plan:
Pulmonary status continues to be stable
Wean supplemental oxygen
Eventually assess discharge supplemental oxygen needs
Nebulizers if needed-currently not bronchospastic
Aspiration precautions
Incentive spirometry
BiPAP as needed and tolerated
Cardiology and cardiovascular/thoracic surgery following-correspondence reviewed
Cardiovascular surgery feels surgical intervention is prohibitive given patient's comorbidities, severe lung disease and [id number] smoking history
Subsequently the patient's cardiac team was considering high risk PCI and not open heart procedure
Once again the pulmonary team feels she is at moderate to high risk for perioperative pulmonary complications if median sternotomy/thoracotomy/CABG pursued-agree with cardiovascular surgery
Cardiac catheterization right and left 03/31/2024-RV 61/24, RA 25, PA 61/37, PCWP-34, cardiac index 1.89, successful intracoronary lithotripsy of densely calcified 90% nodular proximal LAD lesion, successful PCI of 90% proximal LAD lesion with
balloon with reduction of stenosis to 10 to 20%,
Aggressive diuresis recommended as well as medical therapy in addition to cardiac rehab
DVT prophylaxis-on heparin
Nutrition
Early mobilization
Ongoing outpatient pulmonary evaluation is recommended including to discuss lung cancer screening given her significant tobacco use history as she qualifies for LDCT chest given she quit 7 years ago and smoked >60-[id number] Hx and is between ages
50-77. We will also help manage her outpatient asthma, pulmonary function test, sleep disordered breathing, etc.
Data:
CT Chest without contrast 03-29-2024:
1. SEVERE CALCIFIC ATHEROSCLEROTIC PLAQUE in the CORONARY ARTERIES.
2. Severe calcific atherosclerotic plaque in the thoracic aorta.
3. Moderate calcification in the aortic valve.
4. Mild scarring in both lungs.
5. Severe right convex curvature of the midthoracic spine with severe multilevel thoracic discogenic degenerative disease.
Spirometry 03/28/2024-FEV1 0.72-41%, FVC 1.15-39%
Subjective Data
-
Date of Service:
Date of Service: April 01, 2024
Chief Complaint: Pulmonary Follow Up and Dyspnea Follow Up
Subjective:
Tolerated cardiac catheterization, no complaints of worsening shortness of breath, chest pain, chest tightness, productive cough or abdominal pain
Review of Systems
General: Other (Per HPI)
Objective Data
Data Reviewed
Vital Signs / I&O:
Vital Signs
Temp Pulse Resp BP Pulse Ox
98.1 F 68 18 149/63 95
04/01/24 07:05 04/01/24 09:12 04/01/24 08:09 04/01/24 09:12 04/01/24 09:07
Intake and Output
03/31/24 04/01/24 04/02/24
06:59 06:59 06:59
Intake Total 240 / 240 1420 / 1420
Output Total 1350 / 1350
Balance 240 / 240 70 / 70
SaO2: 95
Nasal Cannula flow liters per minute: 2
Physical Exam
General: Respiratory Distress (n) and Comfortable
HEENT: Normocephalic, Anicteric and Moist Mucous Membranes
Cardiovascular: Regular Rhythm and Murmur
Respiratory: Clear (Diminished breath sounds), Crackles (n), Rhonchi (n), Non-Labored Respirations, Accessory Resp Muscle Use (n) and Stridor (n)
GI: Soft, Non Distended and Non Tender
Neurology: Awake, Alert and No Motor Deficits
Skin: Warm, Good Color, Cyanosis (n), Jaundice (n) and Rash (n)
Labs/Micro/Reports
Lab Data
04/01/24 04:03
04/01/24 04:03
Laboratory Results
03/31/24
11:40
APTT Cancelled
--- NOTE | 2024-04-01 10:57 | W.PN.UPDATE ---
Update Note
Progress Note Update
Pt transferred here from [facility] for CABG evaluation. Patient deemed better suited for PCI which was completed yesterday successfully. Pt to be transferred to medicine service (Dr. Steward accepting), CT surgery will sign off. Please call with
questions.
[2024-04-01 11:08] VITALS: BP 118/57
--- NOTE | 2024-04-01 11:20 | W.PN.CD ---
Today's Communication / Plan
-
Repeat diuretics.
Monitor renal function.
Bronchodilators.
Impression / Plan
-
Impression/Plan: 68 y/o female with IDDM, HTN, HLD and PAD transferred from [facility] after cardiac catheterization performed for accelerating SOB/PLATA revealed severe, multivessel CAD requiring atherectomy vs. CABG.
#CAD
-New diagnosis.
-S/P coronary lithotripsy and PCI of the 90% proximal LAD lesion (4.0 x 12 Shockwave balloon) and PCI ([employer] [place] 4.0 x 15 JOSE, post dilated with 4.0 NC balloon throughout, 4.5 NC balloon in proximal margin to 24 THAI) with 10-20%
residual stenosis.
-DAPT with aspirin and clopidogrel for at least 12 months, likely lifelong given burden of CAD.
-Aggressive secondary prevention with high dose, high potency statin.
-If the patient has return of angina (or equivalent) after PCI (plus treatment of HFpEF and COPD/RLD), we can consider further intervention on the residual mid LAD disease, understanding that it would also be a higher risk intervention, requiring
plaque modification (CSI) and likely a two stent strategy.
#Hypoxic respiratory failure
-Improving.
-Mixed/multifactorial with RLD/COPD and severely elevated filling pressures consistent with HFpEF, moderate/severe pre/post capillary pulmonary hypertension.
-LVEDP 32 mmHg at cath/PCI. Prior reading of 12 was likely print manager error.
#HFpEF
-Acute (probably on chronic).
-LVEDP/PCWP = 32 mmHg.
-Responded well to furosemide in collaborating supervising physician.
-Redose 80 mg IV this morning.
-Monitor renal function, oxygen requirement, daily weights.
-Start GDMT as hemodynamics will tolerate.
#RLD/COPD
-New diagnosis.
-PFT's from 03/31/2024 show FEV1/FVC = 69%, FEV1 = 1.42 (51%), TLC = 3.12 L (66%), DLCO = 9.09 mL/min/mmHg (49%).
-CT chest shows mild bibasilar scarring.
-Pulmonology following.
-Nebulizers.
#HTN
-Chronic, stable.
-Continue HCTZ, metoprolol.
#HLD
-Chronic, stable.
-Total cholesterol = 99, LDL = 27, HDL = 39, Triglycerides = 166.
-Continue rosuvastatin and icosapent ethyl.
-Goal LDL < 55, Triglycerides < 150.
#IDDM
-Chronic, uncontrolled.
-HbA1c = 8.3%.
-SSI per primary team.
-Hold metformin in anticipation of possible catheterization.
-She would benefit from GLP-1 agonist as an outpatient.
#PAD
-Chronic, stable.
-Lipid lower therapy as above.
Subjective/Interval History:
PFT's showed moderate/severe mixed restrictive/obstructive pulmonary disease.
Patient taken for coronary lithotripsy and PCI yesterday.
RHC/LHC at the time revealed severely elevated filling pressures (LVEDP/PCWP = 32 mmHg) with pre/post capillary pulmonary hypertension.
Furosemide 80 mg IV given at the end of the cardiac catheterization.
Weight is down 1.1 kg from yesterday.
Remains 95% on 2LNC.
DATA:
Cardiac Catheterization/PCI, 03/31/2024:
CONCLUSIONS:
1. Right dominant circulation with chronic total occlusion of the RCA, collateralized by the left system, tapering of the distal left main, a 50-60% lesion in the ostium of the circumflex, 40% lesion in the proximal margin of OM1, a Schumacher 1, 1,
170% lesion in the mid LAD spanning the origin of the second diagonal and a densely calcified, 90% nodular lesion in the proximal LAD, status post successful intracoronary lithotripsy (4.0 x 12 shockwave balloon) and PCI ([employer] [place] 4.0
x 15 JOSE, postdilated with a 4.0 NC balloon throughout and a 4.5 x 8 NC balloon in the proximal margin) with reduction in stenosis to 10-20%, maintaining JAMAL-3 flow.
2. Severely elevated filling pressures (LVEDP = 32 mmHg, PCWP = 32 mmHg at 95.3 kg).
3. Moderate pre and postcapillary pulmonary hypertension (PA = 60 1/37/45, PVR = 3.44 Gallagher units), WHO group 2 and likely WHO group 3.
4. Depressed cardiac output (3.78 L/min) and index (1.89 L/min/m�) with normal AV O2 difference (4.68 volume %).
CT Chest, 03/29/2024:
IMPRESSION:
1. SEVERE CALCIFIC ATHEROSCLEROTIC PLAQUE in the CORONARY ARTERIES.
2. Severe calcific atherosclerotic plaque in the thoracic aorta.
3. Moderate calcification in the aortic valve.
4. Mild scarring in both lungs.
5. Severe right convex curvature of the midthoracic spine with severe multilevel thoracic discogenic degenerative disease.
TTE, 03/25/2024:
CONCLUSIONS
1. Technically difficult study making assessment of wall motion less reliable.
Grossly, LV function is normal with an estimated ejection fraction of 60%. A
localized wall motion abnormality could not be excluded.
2. Normal RV function.
3. Mildly increased transaortic gradient of 21 mm peak 14 mm mean with a
calculated aortic valve area of 1.5 cm2. Findings compatible with the presence
of mild aortic stenosis. No aortic insufficiency was detected.
4. Moderate aortic root sclerosis.
5. Normal chamber sizes.
6. No other significant valvular disease is detected.
Physical Exam
Vital Signs/Labs
Vital Signs
Temp Pulse Resp BP Pulse Ox
37.1 C 68 20 149/63 95
04/01/24 11:06 04/01/24 09:12 04/01/24 11:06 04/01/24 09:12 04/01/24 11:06
03/30/24 03/31/24 04/01/24
11:59 11:59 11:59
Actual Weight 95.5 kg 94.4 kg
04/01/24 04:03
04/01/24 04:03
PT 13.6 Sec (11.4-14.6) 03/28/24 13:11
INR 1.06 03/28/24 13:11
APTT Cancelled 03/31/24 11:40
Magnesium 1.6 mg/dl (1.6-2.3) 03/30/24 13:37
Triglycerides 166 mg/dl (10-149) H 03/28/24 04:21
LDL Cholesterol, Calc 27 mg/dl 03/28/24 04:21
VLDL Cholesterol, Calc 33 mg/dl (0-30) H 03/28/24 04:21
HDL Cholesterol 39 mg/dl 03/28/24 04:21
03/28/24
04:21
Qhq-P-Tjhvrbktllg Pept 406
Physical Exam
Constitutional: No acute distress and Comfortable
EENT: Anicteric and Moist mucous membranes
Cardiovascular: Rhythm & rate is regular, Pedal edema is absent, S1S2 is normal and Murmur/rub/gallop absent
Respiratory: Respiratory effort normal and Other (Decreased throughout.)
GI: Soft, Distention absent, Flat, Non tender and Normal bowel sounds
Neuro/Psych: AO x 3
Other: Cath Site (Right femoral access sites are C/D/I.)
Data Reviewed
-
Date of Service: April 01, 2024
Medical Decision Making: Reviewed Test Results, Independent Historian Assessment, Test Interpretation and Review of Case with other Provider
EKG: Tracing Personally Visualized and interpreted and Report Reviewed by me
Echo: Tracing Personally Visualized and interpreted and Report Reviewed by me
X-Ray/CT/US/MRI/NUC/PET: Image Personally Visualized and interpreted and Report Reviewed by me
Medical Tests (PFT, Pathology etc): Image Personally Visualized and interpreted and Report Reviewed by me
Labs: Labs Reviewed by me
Old Records: Reviewed
--- NOTE | 2024-04-01 11:22 | CM ---
Chart reviewed. Patient is independent of ADLS, lives with her in a 1 STH, ramp to access, 0 DME. Referral placed to [facility]. Patient still requiring O2. Patient will need to be assessed for home O2 to evaluate need for home O2. Plan
is for the patient to return home with [facility]. CM to follow
[2024-04-01] MEDS: LASIX 80 MG IV ×2 (11:55→15:54)
[2024-04-01 12:35] LABS: Glucose - Point of Care 317 mg/dl (70-99)
--- NOTE | 2024-04-01 12:52 | W.PN.HOSP.TC ---
Today's Communication/Plan
-
diuresis
resume pre-meal insulin
Assessment / Plan
Assessment / Plan
Ms. Angeline Morales is a 68 yo woman with hx CAD managed medically (dx 2017), restrict lung disease, 72 pack year smoking history, obesity, reported history COPD but PFT's in-house show asthma transferred from [facility] for CABG
evaluation. Patient complained of several weeks of shortness of breath. EKG at cardiology office showed ST depressions, sent to OSH with left heart cath showing 3V disease, PCI attempted and unsuccessful and she was transferred to on 03/28/24.
Patient deemed to be moderate to high risk for pulmonary complications. Decision made to pursue high risk PCI. She is now s/p successful PCI 90% proximal LAD lesion with balloon with reduction of stenosis to 10-20%.
CT CHEST 03/29/24
IMPRESSION:
1. SEVERE CALCIFIC ATHEROSCLEROTIC PLAQUE in the CORONARY ARTERIES.
2. Severe calcific atherosclerotic plaque in the thoracic aorta.
3. Moderate calcification in the aortic valve.
4. Mild scarring in both lungs.
5. Severe right convex curvature of the midthoracic spine with severe multilevel thoracic discogenic degenerative disease.
Carotid US 03/30/24
IMPRESSION: Negative for flow-limiting carotid stenosis. By velocity criteria, any internal carotid artery stenosis present is in the range of 0-49%.
Coronary Artery Disease
-deemed not to be surgery candidate
-now s/p successful PCI with lithotripsy/JOSE to proximal LAD 03/31/24
-continue ASA/Plavix
-continue Statin
-per cardiology: 'If the patient has return of angina (or equivalent) after PCI (plus treatment of HFpEF and COPD/RLD), we can consider further intervention on the residual mid LAD disease, understanding that it would also be a higher risk
intervention, requiring plaque modification (CSI) and likely a two stent strategy.'
Heart Failure preserved EF
-PCWP 32
-continue IV lasix
-daily weights, stright I/O
Restrictive Lung Disease
Obesity
Smoking History
Asthma on Spirometry 03/31/24
-appreciate pulmonary insight
-CT chest with mild bibasilar scarring
Essential Hypertension
-PALM GATHERER Metoprolol
-PALM GATHERER HCTZ
Hyperlipidemia
-PALM GATHERER statin
IDDM
-hold PALM GATHERER Metformin 48 hours post cath
-ISS
-patient is on pre-meal insulin 25 units TID at home - resume at 5 for now
-PALM GATHERER Lantus 60 units qhs (takes BID at home)
Peripheral Arterial Disease
-aspirin/plavix/statin
DVT PPx
Anticipated Discharge: 24 - 48 hours
Subjective/Interval History
-
Date of Service: April 01, 2024
patient feeling better this morning
diuresing well
Objective Data
-
Labs:
Laboratory Results
04/01/24
04:03
WBC 10.7
Hgb 13.9
Hct 40.9
Plt Count 194
Sodium 138
Potassium 3.9
Chloride 92 L
Carbon Dioxide 35 H
BUN 25 H
Creatinine 0.6
Glucose 164 H
Calcium 9.0
Vital Signs:
Vital Signs
Temp Pulse Resp BP Pulse Ox
98.7 F 63 20 118/57 95
04/01/24 11:06 04/01/24 11:30 04/01/24 11:06 04/01/24 11:08 04/01/24 11:45
I&O
03/31/24 04/01/24 04/02/24
06:59 06:59 06:59
Intake Total 240 / 240 1420 / 1420 300 / 300
Output Total 1350 / 1350 400 / 400
Balance 240 / 240 70 / 70 -100 / -100
Review of Systems
-
History Source: Patient
All other systems: Reviewed and negative
Physical Exam
-
General: No Apparent Distress and Obese
HEENT: PERRLA
Respiratory: Clear to Auscultation and Rales; Negative Wheezes
Cardiac: Regular Rhythm and S1/S2
GI: Soft and Nontender
Musculoskeletal: No Edema
Skin: Warm and Dry; Negative Rash
Neuro: AO x 3
Psych: Calm
Data Reviewed
-
Diagnostic Radiology: Report Reviewed by me
Labs: Labs Reviewed by me
[2024-04-01] MEDS: NOVOLOG FLEXPEN-MODERATE RESISTANCE 7 UNITS SC ×2 (13:46→18:22)
[2024-04-01 15:46] VITALS: BP 112/52
[2024-04-01 16:27] LABS: Glucose - Point of Care 323 mg/dl (70-99)
--- NOTE | 2024-04-01 16:35 | PTCARENOTE ---
Pt still requiring oxygen at 2L even at rest, diuresing well after lasix , will reassess need for oxygen. Pt able to walk with oxygen in halls @75 feet, pt is limited by chronic back pain and deconditioning. Telemetry shows sinus rhythm with rare
PVC's.
[2024-04-01] MEDS: NOVOLOG FLEXPEN 5 UNITS SC (18:23)
[2024-04-01 19:07] VITALS: BP 120/67
[2024-04-01 22:11] LABS: Glucose - Point of Care 307 mg/dl (70-99)
[2024-04-01] MEDS: LANTUS SC (22:11)
[2024-04-01 22:17] VITALS: BP 124/88
[2024-04-01] MEDS: LANTUS 0.599999999999999978 UNITS SC (22:30)
--- NOTE | 2024-04-01 22:43 | PTCARENOTE ---
Received pt at handoff. AOX4 and pleasant. Assessment noted as documented. Tele- SR. Pt sating 92% on 2L O2 NC. C/o chronic lower back pain. Tramadol administered as ordered; see MAR. Currently in bed; call amrit w/in reach.
[2024-04-02] VITALS (7 sets, daily range): BP systolic 127–148; BP diastolic 53–134; BMI 35.6
[2024-04-02] MEDS: ADVAIR HFA 230/21 MCG INHALER 1 PUFF INH ×2 (07:42→19:39)
--- NOTE | 2024-04-02 07:54 | W.PN.HOSP.TC ---
Today's Communication/Plan
-
*awaiting AM labs
Assessment / Plan
Assessment / Plan
Ms. Angeline Morales is a 68 yo woman with hx CAD managed medically (dx 2017), restrict lung disease, 72 pack year smoking history, obesity, reported history COPD but PFT's in-house show asthma transferred from [facility] for CABG
evaluation. Patient complained of several weeks of shortness of breath. EKG at cardiology office showed ST depressions, sent to OSH with left heart cath showing 3V disease, PCI attempted and unsuccessful and she was transferred to on 03/28/24.
Patient deemed to be moderate to high risk for pulmonary complications. Decision made to pursue high risk PCI. She is now s/p successful PCI 90% proximal LAD lesion with balloon with reduction of stenosis to 10-20%.
CT CHEST 03/29/24
IMPRESSION:
1. SEVERE CALCIFIC ATHEROSCLEROTIC PLAQUE in the CORONARY ARTERIES.
2. Severe calcific atherosclerotic plaque in the thoracic aorta.
3. Moderate calcification in the aortic valve.
4. Mild scarring in both lungs.
5. Severe right convex curvature of the midthoracic spine with severe multilevel thoracic discogenic degenerative disease.
Carotid US 03/30/24
IMPRESSION: Negative for flow-limiting carotid stenosis. By velocity criteria, any internal carotid artery stenosis present is in the range of 0-49%.
Coronary Artery Disease
-deemed not to be surgery candidate
-now s/p successful PCI with lithotripsy/JOSE to proximal LAD 03/31/24
-continue ASA/Plavix
-continue Statin
-per cardiology: 'If the patient has return of angina (or equivalent) after PCI (plus treatment of HFpEF and COPD/RLD), we can consider further intervention on the residual mid LAD disease, understanding that it would also be a higher risk
intervention, requiring plaque modification (CSI) and likely a two stent strategy.'
Heart Failure preserved EF
-PCWP 32
-continue IV lasix
-daily weights, stright I/O
-*awaiting AM labs 04/02
Restrictive Lung Disease
Obesity
Smoking History
Asthma on Spirometry 03/31/24
-appreciate pulmonary insight
-CT chest with mild bibasilar scarring
-Outpatient pulmonary/sleep disorders follow-up
Essential Hypertension
-VENETIAN BLIND INSTALLER Metoprolol
-hold VENETIAN BLIND INSTALLER HCTZ
Hyperlipidemia
-VENETIAN BLIND INSTALLER statin
IDDM
-hold VENETIAN BLIND INSTALLER Metformin 48 hours post cath
-ISS
-patient is on pre-meal insulin 25 units TID at home - increase to 10 now
-VENETIAN BLIND INSTALLER Lantus 60 units qhs (takes BID at home); start lantus 20units qAM
Peripheral Arterial Disease
-aspirin/plavix/statin
DVT PPx
Anticipated Discharge: 24 - 48 hours
Subjective/Interval History
-
Date of Service: April 02, 2024
feeling well
continuing to urinate a lot
no chest pain
Objective Data
-
Labs:
Laboratory Results
04/02/24
07:53
WBC Pending
Hgb Pending
Hct Pending
Plt Count Pending
Sodium Pending
Potassium Pending
Chloride Pending
Carbon Dioxide Pending
BUN Pending
Creatinine Pending
Glucose Pending
Calcium Pending
Vital Signs:
Vital Signs
Temp Pulse Resp BP Pulse Ox
98.1 F 65 18 129/61 93
04/02/24 07:36 04/02/24 04:45 04/02/24 03:28 04/02/24 03:28 04/02/24 07:36
I&O
04/01/24 04/02/24 04/03/24
06:59 06:59 06:59
Intake Total 1420 / 1420 850 / 850
Output Total 1350 / 1350 2250 / 2250
Balance 70 / 70 -1400 / -1400
Review of Systems
-
History Source: Patient
All other systems: Reviewed and negative
Physical Exam
-
General: No Apparent Distress and Obese
HEENT: PERRLA
Respiratory: Clear to Auscultation and Rales; Negative Wheezes
Cardiac: Regular Rhythm and S1/S2
GI: Soft and Nontender
Musculoskeletal: No Edema
Skin: Warm and Dry; Negative Rash
Neuro: AO x 3
Psych: Calm
Data Reviewed
-
Diagnostic Radiology: Report Reviewed by me
Labs: Labs Reviewed by me
[2024-04-02 08:11] LABS: Glucose - Point of Care 241 mg/dl (70-99)
[2024-04-02 08:22] LABS: Hematocrit 42.8 % (37.0-47.0); Hemoglobin 14.4 g/dL (12.0-16.0); Mean Corp Hgb Conc. 33.6 g/dL (33.0-37.0); Mean Corpuscular Hgb 28.9 pg (27.0-31.0); Mean Corpuscular Volume 85.8 fL (81.0-99.0); Mean Platelet Volume 10.4 fL (7.4-10.4); Platelet Count 197 10^3/uL (130-400); Red Blood Cell Count 4.99 10^6/uL (4.20-5.40); White Blood Cell Count 9.8 10^3/uL (4.8-10.8)
[2024-04-02] MEDS: NOVOLOG FLEXPEN-MODERATE RESISTANCE 3 UNITS SC (08:56)
[2024-04-02] MEDS: NOVOLOG FLEXPEN 10 UNITS SC ×3 (08:57→18:21)
[2024-04-02] MEDS: CRESTOR 20 MG PO (08:58)
[2024-04-02] MEDS: CLARITIN 10 MG PO (08:58)
[2024-04-02] MEDS: ASPIR LOW (ENTERIC COATED) 81 MG PO (08:58)
[2024-04-02] MEDS: ULTRAM 100 MG PO ×2 (08:58→16:33)
[2024-04-02] MEDS: BENTYL 20 MG PO ×3 (08:59→22:11)
[2024-04-02] MEDS: TOPROL XL 50 MG PO (08:59)
[2024-04-02] MEDS: LYRICA 50 MG PO ×3 (09:00→22:11)
[2024-04-02] MEDS: PLAVIX 75 MG PO (09:00)
[2024-04-02] MEDS: MIRALAX PO (09:00)
[2024-04-02] MEDS: NON-FORMULARY ITEM 2 GM PO ×2 (09:01→17:45)
[2024-04-02] MEDS: LANTUS 0.200000000000000011 UNITS SC (09:01)
[2024-04-02 09:18] LABS: Blood Urea Nitrogen 31 mg/dl (7-17); Calcium 9.1 mg/dl (8.4-10.2); Chloride 87 mmol/L (98-107); Estimated Creatinine Clearance 101 ml/min; Glucose 244 mg/dl (70-99); Magnesium 1.8 mg/dl (1.6-2.3); Potassium 4.1 mmol/L (3.5-5.1); Sodium 133 mmol/L (135-145); eGFR > 60.00
[2024-04-02 09:24] LABS: Carbon Dioxide 37 mmol/L (22-30)
[2024-04-02] MEDS: NOVOLOG FLEXPEN SC (09:29)
--- NOTE | 2024-04-02 10:11 | W.PN.PUL.V3 ---
Today's Communication / Plan
-
Wean oxygen
Diuresis
Advair continues
Outpatient pulmonary/sleep disorders follow-up
Assessment
-
Assessment: 68-year-old female with a past medical history of CAD, asthma, reported history of COPD, GERD, DM type II, PAD, former tobacco use disorder and cataracts who presents with SOB for 3-4 weeks. 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 Giordano, on 03/25/[address] depressions concerning for ischemia. She had gone to [facility] for left heart cath showing three-vessel CAD. PCI of the LAD was attempted but unsuccessful and now she
is here at [facility] for further management. Spirometry was done here at [facility] showing a very severe restrictive lung defect with postbronchodilator FVC of 40% predicted. She also had a blood gas showing metabolic alkalosis
with a pH 7.46, pCO2 52. Pulmonary service now consulted for further recommendations/management.
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
Impression:
#Very severe restrictive lung disease - this may be over-estimated given patient positioning and deconditioning during current hospitalization
# COPD
#Former [id number]-year
#Abnormal blood gas with metabolic alkalosis with compensatory respiratory acidosis
#Morbid obesity
#DM type II c/b hyperglycemia (A1C: 8.3)
#Hx of asthma (she does not have COPD as per spirometry on 03/28/2024)
#CAD
#GERD
Plan:
The patient's respiratory status has improved
Continue supplemental oxygen-attempt to wean to room air
Eventually assess discharge supplemental oxygen needs
Nebulizers if needed-currently not bronchospastic
Aspiration precautions
Incentive spirometry
BiPAP as needed and tolerated
Cardiology and cardiovascular/thoracic surgery following-correspondence reviewed
Cardiovascular surgery feels surgical intervention is prohibitive given patient's comorbidities, severe lung disease and 43-[id number]-vjtv smoking history
Subsequently the patient's cardiac team was considering high risk PCI and not open heart procedure which the patient underwent successfully
Once again the pulmonary team feels she is at moderate to high risk for perioperative pulmonary complications if median sternotomy/thoracotomy/CABG pursued-agree with cardiovascular surgery
Cardiac catheterization right and left 03/31/2024-RV 61/24, RA 25, PA 61/37, PCWP-34, cardiac index 1.89, successful intracoronary lithotripsy of densely calcified 90% nodular proximal LAD lesion, successful PCI of 90% proximal LAD lesion with
balloon with reduction of stenosis to 10 to 20%,
Aggressive diuresis recommended as well as medical therapy in addition to cardiac rehab
If the patient has return of angina or equivalent cardiology would consider further high risk intervention of the residual mid LAD disease and a 2 stent strategy
DVT prophylaxis-recommended
Nutrition
Early mobilization
Ongoing outpatient pulmonary evaluation is recommended including to discuss lung cancer screening given her significant tobacco use history as she qualifies for LDCT chest given she quit 7 years ago and smoked >27-vghs-uekd Hx and is between ages
50-77. We will also help manage her outpatient asthma, pulmonary function test, sleep disordered breathing, etc.
Data:
CT Chest without contrast 03-29-2024:
1. SEVERE CALCIFIC ATHEROSCLEROTIC PLAQUE in the CORONARY ARTERIES.
2. Severe calcific atherosclerotic plaque in the thoracic aorta.
3. Moderate calcification in the aortic valve.
4. Mild scarring in both lungs.
5. Severe right convex curvature of the midthoracic spine with severe multilevel thoracic discogenic degenerative disease.
Spirometry 03/28/2024-FEV1 0.72-41%, FVC 1.15-39%
Subjective Data
-
Date of Service:
Date of Service: April 02, 2024
Chief Complaint: Pulmonary Follow Up and Dyspnea Follow Up
Subjective:
Feels better, less short of breath, no chest pain, chest tightness, productive cough, or abdominal pain
Review of Systems
General: Other (Per HPI)
Objective Data
Data Reviewed
Vital Signs / I&O:
Vital Signs
Temp Pulse Resp BP Pulse Ox
98.1 F 69 16 137/67 93
04/02/24 07:36 04/02/24 08:00 04/02/24 07:45 04/02/24 07:39 04/02/24 09:06
Intake and Output
04/01/24 04/02/24 04/03/24
06:59 06:59 06:59
Intake Total 1420 / 1420 850 / 850 180 / 180
Output Total 1350 / 1350 2250 / 2250 400 / 400
Balance 70 / 70 -1400 / -1400 -220 / -220
SaO2: 93
Nasal Cannula flow liters per minute: 2
Physical Exam
General: Respiratory Distress (n) and Comfortable
HEENT: Normocephalic, Anicteric and Moist Mucous Membranes
Cardiovascular: Regular Rhythm and Murmur
Respiratory: Clear (Diminished breath sounds), Crackles (n), Rhonchi (n), Non-Labored Respirations, Accessory Resp Muscle Use (n) and Stridor (n)
GI: Soft, Non Distended and Non Tender
Neurology: Awake, Alert and No Motor Deficits
Skin: Warm, Good Color, Cyanosis (n), Jaundice (n) and Rash (n)
Labs/Micro/Reports
Lab Data
04/02/24 08:11
04/02/24 08:11
[2024-04-02] MEDS: LASIX 80 MG IV ×2 (10:35→16:34)
--- NOTE | 2024-04-02 11:29 | W.PN.CD ---
Today's Communication / Plan
-
Continue current diuretics.
Start dapagliflozin 10 mg daily.
Case management consult.
Impression / Plan
-
Impression/Plan: 68 y/o female with IDDM, HTN, HLD and PAD transferred from [facility] after cardiac catheterization performed for accelerating SOB/PLATA revealed severe, multivessel CAD requiring atherectomy vs. CABG.
#CAD
-New diagnosis.
-S/P coronary lithotripsy and PCI of the 90% proximal LAD lesion (4.0 x 12 Shockwave balloon) and PCI (Medtronic Twan Mcloud 4.0 x 15 JOSE, post dilated with 4.0 NC balloon throughout, 4.5 NC balloon in proximal margin to 24 THAI) with 10-20%
residual stenosis.
-DAPT with aspirin and clopidogrel for at least 12 months, likely lifelong given burden of CAD.
-Aggressive secondary prevention with high dose, high potency statin.
-If the patient has return of angina (or equivalent) after PCI (plus treatment of HFpEF and COPD/RLD), we can consider further intervention on the residual mid LAD disease, understanding that it would also be a higher risk intervention, requiring
plaque modification (CSI) and likely a two stent strategy.
#HFpEF
-Acute (probably on chronic).
-LVEDP/PCWP = 32 mmHg.
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
-Continue furosemide 80 mg IV BID.
-Monitor renal function, oxygen requirement, daily weights.
-Continue metoprolol succinate 50 mg daily. We will add dapagliflozin 10 mg daily. Case management consult.
-Wean oxygen.
#RLD/COPD
-New diagnosis.
-PFT's from 03/31/2024 show FEV1/FVC = 69%, FEV1 = 1.42 (51%), TLC = 3.12 L (66%), DLCO = 9.09 mL/min/mmHg (49%).
-CT chest shows mild bibasilar scarring.
-Pulmonology following.
-Nebulizers.
#HTN
-Chronic, stable.
-Continue metoprolol.
#HLD
-Chronic, stable.
-Total cholesterol = 99, LDL = 27, HDL = 39, Triglycerides = 166.
-Continue rosuvastatin and icosapent ethyl.
-Goal LDL < 55, Triglycerides < 150.
#IDDM
-Chronic, uncontrolled.
-HbA1c = 8.3%.
-SSI per primary team.
-Hold metformin in anticipation of possible catheterization.
-She would benefit from GLP-1 agonist as an outpatient.
#PAD
-Chronic, stable.
-Lipid lower therapy as above.
Subjective/Interval History:
Weight down 0.4 kg.
Remains on 2LNC.
Na dropped to 133.
DATA:
Cardiac Catheterization/PCI, 03/31/2024:
CONCLUSIONS:
1. Right dominant circulation with chronic total occlusion of the RCA, collateralized by the left system, tapering of the distal left main, a 50-60% lesion in the ostium of the circumflex, 40% lesion in the proximal margin of OM1, a Schumacher 1, 1,
170% lesion in the mid LAD spanning the origin of the second diagonal and a densely calcified, 90% nodular lesion in the proximal LAD, status post successful intracoronary lithotripsy (4.0 x 12 shockwave balloon) and PCI (Medtronic Twan Mcloud 4.0
x 15 JOSE, postdilated with a 4.0 NC balloon throughout and a 4.5 x 8 NC balloon in the proximal margin) with reduction in stenosis to 10-20%, maintaining JAMAL-3 flow.
2. Severely elevated filling pressures (LVEDP = 32 mmHg, PCWP = 32 mmHg at 95.3 kg).
3. Moderate pre and postcapillary pulmonary hypertension (PA = 60 /45, PVR = 3.44 Gallagher units), WHO group 2 and likely WHO group 3.
4. Depressed cardiac output (3.78 L/min) and index (1.89 L/min/m�) with normal AV O2 difference (4.68 volume %).
CT Chest, 03/29/2024:
IMPRESSION:
1. SEVERE CALCIFIC ATHEROSCLEROTIC PLAQUE in the CORONARY ARTERIES.
2. Severe calcific atherosclerotic plaque in the thoracic aorta.
3. Moderate calcification in the aortic valve.
4. Mild scarring in both lungs.
5. Severe right convex curvature of the midthoracic spine with severe multilevel thoracic discogenic degenerative disease.
TTE, 03/25/2024:
CONCLUSIONS
1. Technically difficult study making assessment of wall motion less reliable.
Grossly, LV function is normal with an estimated ejection fraction of 60%. A
localized wall motion abnormality could not be excluded.
2. Normal RV function.
3. Mildly increased transaortic gradient of 21 mm peak 14 mm mean with a
calculated aortic valve area of 1.5 cm2. Findings compatible with the presence
of mild aortic stenosis. No aortic insufficiency was detected.
4. Moderate aortic root sclerosis.
5. Normal chamber sizes.
6. No other significant valvular disease is detected.
Physical Exam
Vital Signs/Labs
Vital Signs
Temp Pulse Resp BP Pulse Ox
36.7 C 69 16 137/67 93
04/02/24 07:36 04/02/24 08:00 04/02/24 07:45 04/02/24 07:39 04/02/24 10:11
03/31/24 04/01/24 04/02/24
11:59 11:59 11:59
Actual Weight 94.4 kg 94 kg
04/02/24 08:11
04/02/24 08:11
PT 13.6 Sec (11.4-14.6) 03/28/24 13:11
INR 1.06 03/28/24 13:11
APTT Cancelled 03/31/24 11:40
Magnesium 1.8 mg/dl (1.6-2.3) 04/02/24 08:11
Triglycerides 166 mg/dl (10-149) H 03/28/24 04:21
LDL Cholesterol, Calc 27 mg/dl 03/28/24 04:21
VLDL Cholesterol, Calc 33 mg/dl (0-30) H 03/28/24 04:21
HDL Cholesterol 39 mg/dl 03/28/24 04:21
03/28/24
04:21
Lwy-F-Scopbnyjtnx Pept 406
Physical Exam
Constitutional: No acute distress and Comfortable
EENT: Anicteric and Moist mucous membranes
Cardiovascular: Rhythm & rate is regular, Pedal edema is absent, JVD pressure is normal, S1S2 is normal and Murmur/rub/gallop absent
Respiratory: Respiratory effort normal and Other (Decreased throughout.)
GI: Soft, Distention absent, Flat, Non tender and Normal bowel sounds
Neuro/Psych: AO x 3
Other: Cath Site (Femoral access sites are C/D/I.)
Data Reviewed
-
Date of Service: April 02, 2024
Medical Decision Making: Reviewed Test Results, Independent Historian Assessment, Test Interpretation and Review of Case with other Provider
EKG: Tracing Personally Visualized and interpreted and Report Reviewed by me
Echo: Tracing Personally Visualized and interpreted and Report Reviewed by me
X-Ray/CT/US/MRI/NUC/PET: Image Personally Visualized and interpreted and Report Reviewed by me
Medical Tests (PFT, Pathology etc): Image Personally Visualized and interpreted and Report Reviewed by me
Labs: Labs Reviewed by me
Old Records: Reviewed
--- NOTE | 2024-04-02 11:34 | CM ---
Chart reviewed. Patient is independent of ADLS, live with her in a 1 ST, ramp access, 0 DME. Patients uses [facility]. If patient needs home O2, she will need an assessment with a referral. Plan is for the patient to return
home with Shikha SAHU CM to follow
[2024-04-02 12:48] LABS: Glucose - Point of Care 365 mg/dl (70-99)
[2024-04-02] MEDS: NOVOLOG FLEXPEN-MODERATE RESISTANCE 9 UNITS SC (13:31)
[2024-04-02] MEDS: GLUCOPHAGE 500 MG PO (13:32)
[2024-04-02 17:22] LABS: Glucose - Point of Care 253 mg/dl (70-99)
[2024-04-02] MEDS: NOVOLOG FLEXPEN-MODERATE RESISTANCE 5 UNITS SC (18:21)
--- NOTE | 2024-04-02 19:22 | PTCARENOTE ---
Pt up independently in her room, c/o back discomfort which gets some relief with tramadol. Accuchecks elevated today , up to 365, all insulin coverage increased and metformin restarted.
[2024-04-02 22:05] LABS: Glucose - Point of Care 313 mg/dl (70-99)
[2024-04-02] MEDS: LANTUS 0.599999999999999978 UNITS SC (22:11)
--- NOTE | 2024-04-02 23:23 | PTCARENOTE ---
Received pt at handoff. Tele- SR. Assessment noted as documented. Pt sating at 95% on 2L O2 NC. Currently has no c/o at this time. Call amrit w/in reach.
[2024-04-03] VITALS (8 sets, daily range): BP systolic 75–149; BP diastolic 56–70; O2SAT 83–92; BMI 35.5
--- NOTE | 2024-04-03 04:30 | PTCARENOTE ---
While drawing AM labs attempted to wean O2 off. Pt sating 81% on RA. 2L NC reapplied sating 95%.
[2024-04-03 05:08] LABS: Blood Urea Nitrogen 36 mg/dl (7-17); Chloride 88 mmol/L (98-107); Estimated Creatinine Clearance 87 ml/min; Glucose 206 mg/dl (70-99); Sodium 137 mmol/L (135-145); eGFR > 60.00
[2024-04-03 05:19] LABS: Carbon Dioxide 38 mmol/L (22-30)
--- NOTE | 2024-04-03 07:28 | W.PN.HOSP.TC ---
Addendum entered and electronically signed by Zaria Steward MD 04/03/24 11:56:
Patient is in need of oxygen at 3 liters/minute via nasal cannula continuously due to pulse oximetry of 83% on room air at rest. Oxygen will help to improve hypoxemia. Patient is mobile within the home. DuoNeb therapy has been tried and is
ineffective in treating hypoxemia related symptoms. Oxygen is needed to improve symptoms.
Original Note:
Today's Communication/Plan
-
diuresis
monitor BGL
Assessment / Plan
Assessment / Plan
Ms. Angeline Morales is a 68 yo woman with hx CAD managed medically (dx 2017), restrict lung disease, 72 pack year smoking history, obesity, reported history COPD but PFT's in-house show asthma transferred from [facility] for CABG
evaluation. Patient complained of several weeks of shortness of breath. EKG at cardiology office showed ST depressions, sent to OSH with left heart cath showing 3V disease, PCI attempted and unsuccessful and she was transferred to on 03/28/24.
Patient deemed to be moderate to high risk for pulmonary complications. Decision made to pursue high risk PCI. She is now s/p successful PCI 90% proximal LAD lesion with balloon with reduction of stenosis to 10-20%.
CT CHEST 03/29/24
IMPRESSION:
1. SEVERE CALCIFIC ATHEROSCLEROTIC PLAQUE in the CORONARY ARTERIES.
2. Severe calcific atherosclerotic plaque in the thoracic aorta.
3. Moderate calcification in the aortic valve.
4. Mild scarring in both lungs.
5. Severe right convex curvature of the midthoracic spine with severe multilevel thoracic discogenic degenerative disease.
Carotid US 03/30/24
IMPRESSION: Negative for flow-limiting carotid stenosis. By velocity criteria, any internal carotid artery stenosis present is in the range of 0-49%.
Coronary Artery Disease
-deemed not to be surgery candidate
-now s/p successful PCI with lithotripsy/JOSE to proximal LAD 03/31/24
-continue ASA/Plavix
-continue Statin
-per cardiology: 'If the patient has return of angina (or equivalent) after PCI (plus treatment of HFpEF and COPD/RLD), we can consider further intervention on the residual mid LAD disease, understanding that it would also be a higher risk
intervention, requiring plaque modification (CSI) and likely a two stent strategy.'
Heart Failure preserved EF
-PCWP 32 on cath 03/31/24
-continue IV lasix
-daily weights, stright I/O
Hypoxic Respiratory Insufficiency
-remains on 2L O2. May be multifactorial 2/2 heart failure and lung disease
-will need home O2 testing prior to DC
Restrictive Lung Disease
Obesity
Smoking History
Asthma on Spirometry 03/31/24
-appreciate pulmonary insight
-CT chest with mild bibasilar scarring
-Outpatient pulmonary/sleep disorders follow-up
Essential Hypertension
-PLATE CLEANER Metoprolol
-hold PLATE CLEANER HCTZ
Hyperlipidemia
-PLATE CLEANER statin
IDDM
-PLATE CLEANER metformin resumed, creatinine stable post cath
-patient is on pre-meal insulin 25 units TID at home - increase to 10 now
-PLATE CLEANER Lantus 60 units qhs (takes BID at home);increase AM Lantus to 40 (patient stating she eats more bread at home; cautiously getting back to home dosing)
-ISS
Peripheral Arterial Disease
-aspirin/plavix/statin
DVT PPx start lovenox
Anticipated Discharge: 24 - 48 hours
Subjective/Interval History
-
Date of Service: April 03, 2024
continues to urinate a lot
no chest pain
Objective Data
-
Labs:
Laboratory Results
04/03/24
04:21
Sodium 137
Potassium 4.0
Chloride 88 L
Carbon Dioxide 38 H
BUN 36 H
Creatinine 0.7
Glucose 206 H
Calcium 9.0
Vital Signs:
Vital Signs
Temp Pulse Resp BP Pulse Ox
98.5 F 71 16 137/57 95
04/03/24 06:50 04/03/24 06:50 04/03/24 06:50 04/03/24 04:13 04/03/24 06:55
I&O
04/02/24 04/03/24 04/04/24
06:59 06:59 06:59
Intake Total 850 / 850 180 / 180
Output Total 2250 / 2250 1700 / 1700
Balance -1400 / -1400 -1520 / -1520
Review of Systems
-
History Source: Patient
All other systems: Reviewed and negative
Physical Exam
-
General: No Apparent Distress and Obese
HEENT: PERRLA
Respiratory: Clear to Auscultation and Rales; Negative Wheezes
Cardiac: Regular Rhythm and S1/S2
GI: Soft and Nontender
Musculoskeletal: No Edema
Skin: Warm and Dry; Negative Rash
Neuro: AO x 3
Psych: Calm
Data Reviewed
-
Diagnostic Radiology: Report Reviewed by me
Labs: Labs Reviewed by me
[2024-04-03 08:16] LABS: Glucose - Point of Care 185 mg/dl (70-99)
[2024-04-03] MEDS: LANTUS 0.400000000000000022 UNITS SC (08:24)
[2024-04-03] MEDS: ULTRAM 100 MG PO ×2 (08:26→16:29)
[2024-04-03] MEDS: ASPIR LOW (ENTERIC COATED) 81 MG PO (08:27)
[2024-04-03] MEDS: PLAVIX 75 MG PO (08:27)
[2024-04-03] MEDS: CRESTOR 20 MG PO (08:27)
[2024-04-03] MEDS: LYRICA 50 MG PO ×3 (08:27→22:28)
[2024-04-03] MEDS: TOPROL XL 50 MG PO (08:27)
[2024-04-03] MEDS: BENTYL 20 MG PO ×3 (08:28→22:28)
[2024-04-03] MEDS: CLARITIN 10 MG PO (08:28)
[2024-04-03] MEDS: MIRALAX 17 GRAMS PO (08:31)
[2024-04-03] MEDS: GLUCOPHAGE 500 MG PO (08:31)
[2024-04-03] MEDS: LASIX 80 MG IV ×2 (08:31→16:29)
[2024-04-03] MEDS: NON-FORMULARY ITEM 2 GM PO ×2 (08:32→18:31)
[2024-04-03] MEDS: LOVENOX 40 MG SC (08:32)
[2024-04-03] MEDS: ADVAIR HFA 230/21 MCG INHALER 1 PUFF INH ×2 (08:36→19:28)
--- NOTE | 2024-04-03 09:13 | PTCARENOTE ---
Attempted to remove oxygen from pt, 87-88% on room air but she became very SOB aftr moving around , O2 back on at 2L.
--- NOTE | 2024-04-03 09:45 | W.PN.PUL3 ---
Today's Communication / Plan
-
PFT results reviewed with patient, will start spiriva/COPD education
She should be discharged on advair/spiriva/proair
Home O2 eval
Outpatient pulmonary FU recommended
Discharge planning per team
Assessment
-
68-year-old female with a past medical history of CAD, asthma, reported history of COPD, GERD, DM type II, PAD, former tobacco use disorder and cataracts who presents with SOB for 3-4 weeks. 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
Dr. Giordano, on 03/25/[address] depressions concerning for ischemia. She had gone to [facility] for left heart cath showing three-vessel CAD. PCI of the LAD was attempted but unsuccessful and now she is here at [facility] for further management. Spirometry was done here at [facility] showing a very severe restrictive lung defect with postbronchodilator FVC of 40% predicted. She also had a blood gas showing metabolic alkalosis with a pH 7.46, pCO2 52.
Pulmonary service now consulted for further recommendations/management.
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
Impression:
#Severe COPD, FEV1 49%
#Moderate restrictive lung disease, likely from obesity
#Former [id number]-year
#Abnormal blood gas with metabolic alkalosis with compensatory respiratory acidosis
#Morbid obesity
#DM type II c/b hyperglycemia (A1C: 8.3)
#Hx of asthma (she does not have COPD as per spirometry on 03/28/2024)
#CAD
#GERD
Plan:
The patient's respiratory status has improved
Continue supplemental oxygen-attempt to wean to room air
Eventually assess discharge supplemental oxygen needs
Nebulizers if needed-currently not bronchospastic
Aspiration precautions
Incentive spirometry
BiPAP as needed and tolerated
Cardiology and cardiovascular/thoracic surgery following-correspondence reviewed
Cardiovascular surgery feels surgical intervention is prohibitive given patient's comorbidities, severe lung disease and 54-cmtb-mhkx smoking history
Subsequently the patient's cardiac team was considering high risk PCI and not open heart procedure which the patient underwent successfully
Once again the pulmonary team feels she is at moderate to high risk for perioperative pulmonary complications if median sternotomy/thoracotomy/CABG pursued-agree with cardiovascular surgery
Severe COPD by PFT criteria
We will optimize with inhalers
COPD education
Cardiac catheterization right and left 03/31/2024-RV 61/24, RA 25, PA 61/37, PCWP-34, cardiac index 1.89, successful intracoronary lithotripsy of densely calcified 90% nodular proximal LAD lesion, successful PCI of 90% proximal LAD lesion with
balloon with reduction of stenosis to 10 to 20%,
Aggressive diuresis recommended as well as medical therapy in addition to cardiac rehab
If the patient has return of angina or equivalent cardiology would consider further high risk intervention of the residual mid LAD disease and a 2 stent strategy
DVT prophylaxis-recommended
Nutrition
Early mobilization
Ongoing outpatient pulmonary evaluation is recommended including to discuss lung cancer screening given her significant tobacco use history
She qualifies for LDCT chest given she quit 7 years ago and smoked >39-yxma-piei Hx and is between ages 50-77.
We will also help manage her outpatient asthma, pulmonary function test, sleep disordered breathing, etc.
Diagnostic Data:
CT Chest without contrast 03-29-2024:
1. SEVERE CALCIFIC ATHEROSCLEROTIC PLAQUE in the CORONARY ARTERIES.
2. Severe calcific atherosclerotic plaque in the thoracic aorta.
3. Moderate calcification in the aortic valve.
4. Mild scarring in both lungs.
5. Severe right convex curvature of the midthoracic spine with severe multilevel thoracic discogenic degenerative disease.
Spirometry 03/28/2024-FEV1 0.72-41%, FVC 1.15-39%, ratio 76 (mixed pattern, severely reduced)
PFT 03/31/24- FEV1 0.81L 49%, FVC 0.82 49%, ratio 69. TLC 3.12L 66%, DLCO 49% (severe obstruction, moderate restriction, moderate diffusion impairment)
Subjective Data
-
Date of Service:
Date of Service: April 03, 2024
Chief Complaint: Pulmonary Follow Up and Dyspnea Follow Up
Subjective:
no new complaints, remains on supplemental O2
SOB improving
Objective Data
Data Reviewed
Vital Signs / I&O / Oxygen:
Vital Signs
Temp Pulse Resp BP Pulse Ox
98.5 F 82 16 149/68 95
04/03/24 06:50 04/03/24 09:13 04/03/24 09:13 04/03/24 06:50 04/03/24 09:13
Intake and Output
04/02/24 04/03/24 04/04/24
06:59 06:59 06:59
Intake Total 850 / 850 180 / 180
Output Total 2250 / 2250 1700 / 1700 450 / 450
Balance -1400 / -1400 -1520 / -1520 -450 / -450
SaO2 95
Nasal Cannula flow liters per 2
minute
Physical Exam
General: Respiratory Distress (n) and Comfortable
HEENT: Normocephalic, Anicteric and Moist Mucous Membranes
Cardiovascular: Regular Rhythm and Murmur
Respiratory: Clear (Diminished breath sounds), Crackles (n), Rhonchi (n), Non-Labored Respirations, Accessory Resp Muscle Use (n) and Stridor (n)
GI: Soft, Non Distended and Non Tender
Neurology: Awake, Alert, Oriented, AO x 3 and No Motor Deficits
Skin: Warm, Good Color, Cyanosis (n), Jaundice (n) and Rash (n)
Labs/Micro/Reports
Lab Data
04/02/24 08:11
04/03/24 04:21
[2024-04-03] MEDS: SPIRIVA RESPIMAT 2.5 MCG INH (10:04)
[2024-04-03] MEDS: NOVOLOG FLEXPEN-MODERATE RESISTANCE 1 UNITS SC (10:05)
[2024-04-03] MEDS: NOVOLOG FLEXPEN 10 UNITS SC ×3 (10:06→19:01)
--- NOTE | 2024-04-03 10:11 | W.PN.CD ---
Today's Communication / Plan
-
Augment furosemide with acetazolamide 500 mg.
Low threshold to add thiazide.
Home O2 evaluation.
Impression / Plan
-
Impression/Plan: 68 y/o female with IDDM, HTN, HLD and PAD transferred from [facility] after cardiac catheterization performed for accelerating SOB/PLATA revealed severe, multivessel CAD requiring atherectomy vs. CABG.
#CAD
-New diagnosis.
-S/P coronary lithotripsy and PCI of the 90% proximal LAD lesion (4.0 x 12 Shockwave balloon) and PCI (Medtronic [place] 4.0 x 15 JOSE, post dilated with 4.0 NC balloon throughout, 4.5 NC balloon in proximal margin to 24 THAI) with 10-20%
residual stenosis.
-DAPT with aspirin and clopidogrel for at least 12 months, likely lifelong given burden of CAD.
-Aggressive secondary prevention with high dose, high potency statin.
-If the patient has return of angina (or equivalent) after PCI (plus treatment of HFpEF and COPD/RLD), we can consider further intervention on the residual mid LAD disease, understanding that it would also be a higher risk intervention, requiring
plaque modification (CSI) and likely a two stent strategy.
#HFpEF
-Acute (probably on chronic).
-LVEDP/PCWP = 32 mmHg.
-Weight is falling SLOWLY with furosemide 80 mg IV BID. CO2 is rising (likely contraction alkylosis but also in part to underlying respiratory acidosis). Augment with acetazolamide.
-Monitor renal function, oxygen requirement, daily weights.
-Continue metoprolol succinate and dapagliflozin.
-Home oxygen evaluation.
#RLD/COPD
-New diagnosis.
-PFT's from 03/31/2024 show FEV1/FVC = 69%, FEV1 = 1.42 (51%), TLC = 3.12 L (66%), DLCO = 9.09 mL/min/mmHg (49%).
-CT chest shows mild bibasilar scarring.
-Pulmonology following.
-Nebulizers.
#HTN
-Chronic, stable.
-Continue metoprolol.
#HLD
-Chronic, stable.
-Total cholesterol = 99, LDL = 27, HDL = 39, Triglycerides = 166.
-Continue rosuvastatin and icosapent ethyl.
-Goal LDL < 55, Triglycerides < 150.
#IDDM
-Chronic, uncontrolled.
-HbA1c = 8.3%.
-SSI per primary team.
-Hold metformin in anticipation of possible catheterization.
-She would benefit from GLP-1 agonist as an outpatient.
#PAD
-Chronic, stable.
-Lipid lower therapy as above.
Subjective/Interval History:
Weight down 0.2 kg.
Still very SOB when ambulatory.
Cannot tolerate RA.
DATA:
Cardiac Catheterization/PCI, 03/31/2024:
CONCLUSIONS:
1. Right dominant circulation with chronic total occlusion of the RCA, collateralized by the left system, tapering of the distal left main, a 50-60% lesion in the ostium of the circumflex, 40% lesion in the proximal margin of OM1, a Schumacher 1, 1,
170% lesion in the mid LAD spanning the origin of the second diagonal and a densely calcified, 90% nodular lesion in the proximal LAD, status post successful intracoronary lithotripsy (4.0 x 12 shockwave balloon) and PCI (Medtronic [place]an [place] 4.0
x 15 JOSE, postdilated with a 4.0 NC balloon throughout and a 4.5 x 8 NC balloon in the proximal margin) with reduction in stenosis to 10-20%, maintaining JAMAL-3 flow.
2. Severely elevated filling pressures (LVEDP = 32 mmHg, PCWP = 32 mmHg at 95.3 kg).
3. Moderate pre and postcapillary pulmonary hypertension (PA = 60 , PVR = 3.44 Gallagher units), WHO group 2 and likely WHO group 3.
4. Depressed cardiac output (3.78 L/min) and index (1.89 L/min/m�) with normal AV O2 difference (4.68 volume %).
CT Chest, 03/29/2024:
IMPRESSION:
1. SEVERE CALCIFIC ATHEROSCLEROTIC PLAQUE in the CORONARY ARTERIES.
2. Severe calcific atherosclerotic plaque in the thoracic aorta.
3. Moderate calcification in the aortic valve.
4. Mild scarring in both lungs.
5. Severe right convex curvature of the midthoracic spine with severe multilevel thoracic discogenic degenerative disease.
TTE, 03/25/2024:
CONCLUSIONS
1. Technically difficult study making assessment of wall motion less reliable.
Grossly, LV function is normal with an estimated ejection fraction of 60%. A
localized wall motion abnormality could not be excluded.
2. Normal RV function.
3. Mildly increased transaortic gradient of 21 mm peak 14 mm mean with a
calculated aortic valve area of 1.5 cm2. Findings compatible with the presence
of mild aortic stenosis. No aortic insufficiency was detected.
4. Moderate aortic root sclerosis.
5. Normal chamber sizes.
6. No other significant valvular disease is detected.
Physical Exam
Vital Signs/Labs
Vital Signs
Temp Pulse Resp BP Pulse Ox
36.9 C 82 16 149/68 95
04/03/24 06:50 04/03/24 09:13 04/03/24 09:13 04/03/24 06:50 04/03/24 09:13
04/01/24 04/02/24 04/03/24
11:59 11:59 11:59
Actual Weight 94.4 kg 94 kg 93.8 kg
04/02/24 08:11
04/03/24 04:21
PT 13.6 Sec (11.4-14.6) 03/28/24 13:11
INR 1.06 03/28/24 13:11
APTT Cancelled 03/31/24 11:40
Magnesium 1.8 mg/dl (1.6-2.3) 04/02/24 08:11
Triglycerides 166 mg/dl (10-149) H 03/28/24 04:21
LDL Cholesterol, Calc 27 mg/dl 03/28/24 04:21
VLDL Cholesterol, Calc 33 mg/dl (0-30) H 03/28/24 04:21
HDL Cholesterol 39 mg/dl 03/28/24 04:21
03/28/24
04:21
Hga-N-Lprkwwmvlro Pept 406
Physical Exam
Constitutional: No acute distress and Comfortable
EENT: Anicteric and Moist mucous membranes
Cardiovascular: Rhythm & rate is regular, Pedal edema is absent, JVD pressure is normal, S1S2 is normal and Murmur/rub/gallop absent
Respiratory: Respiratory effort normal and Other (Decreased throughout.)
GI: Soft, Distention absent, Flat, Non tender and Normal bowel sounds
Neuro/Psych: AO x 3
Data Reviewed
-
Date of Service: April 03, 2024
Medical Decision Making: Reviewed Test Results, Independent Historian Assessment and Test Interpretation
EKG: Tracing Personally Visualized and interpreted and Report Reviewed by me
Echo: Tracing Personally Visualized and interpreted and Report Reviewed by me
X-Ray/CT/US/MRI/NUC/PET: Image Personally Visualized and interpreted, Report Reviewed by me and Discussed with Physician
Medical Tests (PFT, Pathology etc): Image Personally Visualized and interpreted, Report Reviewed by me and Discussed with Physician
Labs: Labs Reviewed by me
Old Records: Reviewed
[2024-04-03] MEDS: DIAMOX 5 MG IV (11:16)
[2024-04-03] MEDS: FARXIGA 10 MG PO (11:16)
[2024-04-03 12:53] LABS: Glucose - Point of Care 256 mg/dl (70-99)
[2024-04-03] MEDS: NOVOLOG FLEXPEN-MODERATE RESISTANCE 5 UNITS SC (14:55)
--- NOTE | 2024-04-03 15:34 | CM ---
Chart reviewed. Patient is independent of ADLS, lives with her and son in a 1 [address], ramp to access, 0 DME. Patient requiring home O2. Referral sent to [facility], that is where her receives his home oxygen. [facility] will need to be
notified of discharge to deliver the oxygen. [facility] [phone]. Plan is for the patient to return home with Shikha JAMESON and [facility]. CM to follow
--- NOTE | 2024-04-03 15:38 | CM ---
Pricing on Farxiga is non formulary through the patient's prescription plan. They cover Jardiance 10mg at $119 a month and Invokana 100mg $117 a month. Patient is unsure if she will be able to afford the Jardiance. Once her gets his lung
transplant, he won't be able to work. Patient wants to talk to her . Cardiology to followup with the patient. I placed a free 30 day coupon in her red discharge folder in case the patient does go home with Jardiance.
--- NOTE | 2024-04-03 16:02 | W.PN.UPDATE ---
Update Note
Progress Note Update
Per CM, Ny is not covered by her insurance so I will stop it. Jardiance is covered, but is $119 per month. She is not sure this will be affordable, but will talk to her and let medical team know if it is. If affordable, we will add it
on. Coupon for one month free placed in chart in case patient is able to go on it.
[2024-04-03 16:25] LABS: Glucose - Point of Care 236 mg/dl (70-99)
[2024-04-03 17:23] LABS: Glucose - Point of Care 208 mg/dl (70-99)
--- NOTE | 2024-04-03 18:06 | PTCARENOTE ---
Pt up in chair and her room all day. Pt quite sleepy, she reports no new physical issues . Accuchecks slowly improving on increased insulin doses. She continues to diurese but weight loss is slow. Telemetry shows sinus rhythm. Pt will need home
oxygen.
[2024-04-03] MEDS: NOVOLOG FLEXPEN-MODERATE RESISTANCE 3 UNITS SC (19:01)
[2024-04-03 21:27] LABS: Glucose - Point of Care 178 mg/dl (70-99)
[2024-04-03] MEDS: LANTUS 0.599999999999999978 UNITS SC (22:28)
[2024-04-03] MEDS: TYLENOL 650 MG PO (22:29)
--- NOTE | 2024-04-03 23:14 | PTCARENOTE ---
Received pt at handoff. Dayshift nurse reports pt has been drifting in and out of sleep all day. Pt appears solemn d/t mothers today. On pt assessment, AOX3 but drowsy. Pt drifts to sleep during conversation and awakes to verbal stimuli. BP
112/69. Pt sating at 90-92% on 2L O2 NC. Pt w/ shallow breathing and d/m t/o on auscultation. Pt encouraged to deep breathe and use incentive spirometer. Pt able to get IS to 1500. Pt also w/ temp 100.2. Morgan Wesley TECHNICAL TRANSLATOR made aware of respiratory
status, drowsiness, and temp. Tylenol ordered and administered. Pt able to ambulate w/ standby assist into bathroom. Pt is currently in bed; call amrit w/in reach.
[2024-04-04] VITALS (7 sets, daily range): BP systolic 113–139; BP diastolic 56–89; BMI 35.4
--- NOTE | 2024-04-04 04:38 | PTCARENOTE ---
Pt slept t/o night. Pt is much more awake and alert this AM. Pt reports 'i was so out of it last night... i am feeling better today. Thank you for your patience last night... i could tell you were worried about me.' Pt tells RN how her moms
and yesterday took a toll on her. Pt able to hold oriented conversation w/o falling asleep. Wt and AM labs obtained. Pt able to ambulate to bathroom w/ standby assist. Pt sating 92-94% 2L O2 NC. Temp 97.8. Currently has no c/o at this time.
Call marcus w/in reach.
[2024-04-04 04:49] LABS: Hematocrit 42.9 % (37.0-47.0); Hemoglobin 14.4 g/dL (12.0-16.0); Mean Corp Hgb Conc. 33.6 g/dL (33.0-37.0); Mean Corpuscular Hgb 29.1 pg (27.0-31.0); Mean Corpuscular Volume 86.8 fL (81.0-99.0); Mean Platelet Volume 10.2 fL (7.4-10.4); Platelet Count 225 10^3/uL (130-400); Red Blood Cell Count 4.94 10^6/uL (4.20-5.40); Red Cell Dist. Width 14.2 % (11.5-14.5); White Blood Cell Count 9.4 10^3/uL (4.8-10.8)
[2024-04-04 05:24] LABS: Blood Urea Nitrogen 35 mg/dl (7-17); Calcium 9.4 mg/dl (8.4-10.2); Carbon Dioxide 38 mmol/L (22-30); Chloride 90 mmol/L (98-107); Estimated Creatinine Clearance 67 ml/min; Glucose 107 mg/dl (70-99); Potassium 3.9 mmol/L (3.5-5.1); Sodium 136 mmol/L (135-145); eGFR > 60.00
[2024-04-04 07:17] LABS: Glucose - Point of Care 110 mg/dl (70-99)
--- NOTE | 2024-04-04 07:40 | W.PN.HOSP.TC ---
Today's Communication/Plan
-
diuresis per cardiology
continue current DM regimen
Assessment / Plan
Assessment / Plan
Ms. Angeline Morales is a 68 yo woman with hx CAD managed medically (dx 2017), restrict lung disease, 72 pack year smoking history, obesity, reported history COPD but PFT's in-house show asthma transferred from [facility] for CABG
evaluation. Patient complained of several weeks of shortness of breath. EKG at cardiology office showed ST depressions, sent to OSH with left heart cath showing 3V disease, PCI attempted and unsuccessful and she was transferred to on 03/28/24.
Patient deemed to be moderate to high risk for pulmonary complications. Decision made to pursue high risk PCI. She is now s/p successful PCI 90% proximal LAD lesion with balloon with reduction of stenosis to 10-20%.
CT CHEST 03/29/24
IMPRESSION:
1. SEVERE CALCIFIC ATHEROSCLEROTIC PLAQUE in the CORONARY ARTERIES.
2. Severe calcific atherosclerotic plaque in the thoracic aorta.
3. Moderate calcification in the aortic valve.
4. Mild scarring in both lungs.
5. Severe right convex curvature of the midthoracic spine with severe multilevel thoracic discogenic degenerative disease.
Carotid US 03/30/24
IMPRESSION: Negative for flow-limiting carotid stenosis. By velocity criteria, any internal carotid artery stenosis present is in the range of 0-49%.
Coronary Artery Disease
-deemed not to be surgery candidate
-now s/p successful PCI with lithotripsy/JOSE to proximal LAD 03/31/24
-continue ASA/Plavix
-continue Statin
-per cardiology: 'If the patient has return of angina (or equivalent) after PCI (plus treatment of HFpEF and COPD/RLD), we can consider further intervention on the residual mid LAD disease, understanding that it would also be a higher risk
intervention, requiring plaque modification (CSI) and likely a two stent strategy.'
Heart Failure preserved EF
-PCWP 32 on cath 03/31/24
-continue IV lasix
-s/p Diamox on 04/03
-follow up further cardiology recs
-daily weights, stright I/O
-F/U if Jardiance affordable for patient; free coupon in chart per cardiology
Hypoxic Respiratory Insufficiency
-remains on 2L O2. May be multifactorial 2/2 heart failure and lung disease
-s/p home O2 testing - 3L with ambulation
Restrictive Lung Disease
Obesity
Smoking History
Asthma on Spirometry 03/31/24
-appreciate pulmonary insight
-CT chest with mild bibasilar scarring
-Outpatient pulmonary/sleep disorders follow-up
Essential Hypertension
-PHYSICIAN OFFICE REP Metoprolol
-hold PHYSICIAN OFFICE REP HCTZ
Hyperlipidemia
-PHYSICIAN OFFICE REP statin
IDDM
-PHYSICIAN OFFICE REP metformin resumed, creatinine stable post cath
-patient is on pre-meal insulin 25 units TID at home - continue at 10 now
-PHYSICIAN OFFICE REP Lantus 60 units qhs (takes BID at home);increase AM Lantus to 40 (patient stating she eats more bread at home; cautiously getting back to home dosing)
-ISS
Peripheral Arterial Disease
-aspirin/plavix/statin
DVT PPx start lovenox
Anticipated Discharge: 24 - 48 hours
Subjective/Interval History
-
Date of Service: April 04, 2024
urinating frequently
remains on oxygen
states overall feeling better
Objective Data
-
Labs:
Laboratory Results
04/04/24
04:29
WBC 9.4
Hgb 14.4
Hct 42.9
Plt Count 225
Sodium 136
Potassium 3.9
Chloride 90 L
Carbon Dioxide 38 H
BUN 35 H
Creatinine 0.9
Glucose 107 H
Calcium 9.4
Vital Signs:
Vital Signs
Temp Pulse Resp BP Pulse Ox
97.8 F 66 16 113/56 92
04/04/24 04:46 04/04/24 04:45 04/04/24 04:46 04/04/24 04:19 04/04/24 04:46
I&O
04/03/24 04/04/24 04/05/24
06:59 06:59 06:59
Intake Total 180 / 180 340 / 340
Output Total 1700 / 1700 2049
Balance -1520 / -1520 -1710 / -1710
Review of Systems
-
History Source: Patient
All other systems: Reviewed and negative
Physical Exam
-
General: No Apparent Distress and Obese
HEENT: PERRLA
Respiratory: Clear to Auscultation and Rales; Negative Wheezes
Cardiac: Regular Rhythm and S1/S2
GI: Soft and Nontender
Musculoskeletal: No Edema
Skin: Warm and Dry; Negative Rash
Neuro: AO x 3
Psych: Calm
Data Reviewed
-
Diagnostic Radiology: Report Reviewed by me
Labs: Labs Reviewed by me
[2024-04-04] MEDS: NOVOLOG FLEXPEN-MODERATE RESISTANCE SC (07:55)
[2024-04-04] MEDS: SPIRIVA RESPIMAT 2.5 MCG 2 PUFF INH (08:17)
[2024-04-04] MEDS: ADVAIR HFA 230/21 MCG INHALER 1 PUFF INH ×2 (08:17→19:51)
[2024-04-04] MEDS: LASIX 80 MG IV ×2 (09:13→15:33)
[2024-04-04] MEDS: LANTUS 0.400000000000000022 UNITS SC (09:13)
[2024-04-04] MEDS: BENTYL 20 MG PO ×3 (09:14→21:48)
[2024-04-04] MEDS: CRESTOR 20 MG PO (09:14)
[2024-04-04] MEDS: ZAROXOLYN 2.5 MG PO (09:14)
[2024-04-04] MEDS: CLARITIN 10 MG PO (09:14)
[2024-04-04] MEDS: ASPIR LOW (ENTERIC COATED) 81 MG PO (09:15)
[2024-04-04] MEDS: TOPROL XL 50 MG PO (09:15)
[2024-04-04] MEDS: PLAVIX 75 MG PO (09:15)
[2024-04-04] MEDS: GLUCOPHAGE 500 MG PO (09:15)
[2024-04-04] MEDS: NON-FORMULARY ITEM 2 GM PO ×2 (09:16→15:36)
[2024-04-04] MEDS: MIRALAX 17 GRAMS PO (09:16)
[2024-04-04] MEDS: NOVOLOG FLEXPEN 10 UNITS SC ×3 (09:16→17:55)
[2024-04-04] MEDS: LYRICA PO (09:16)
--- NOTE | 2024-04-04 11:30 | W.PN.CD ---
Addendum entered and electronically signed by Hector Olvera MD 04/05/24 07:46:
Patient is seen and evaluated personally. I agree with the documentation and plan of care as noted below.
Briefly 68-year-old woman with history of diabetes, hypertension, hyperlipidemia, peripheral artery disease who presented with significant coronary disease status post PCI to proximal LAD with only residual 20% disease left. Currently patient is
doing well. She also is noted to have heart failure and COPD. Currently being treated for both. No sign of ischemia noted now. In case patient develops chest pain the residual LAD disease can be fixed as well.
For now we will continue managing heart failure and COPD.
Original Note:
Today's Communication / Plan
-
Metolazone 2.5 mg x 1 this morning
Follow daily weight along with urinary output
Impression / Plan
-
Impression/Plan: 68 y/o female with IDDM, HTN, HLD and PAD transferred from [facility] after cardiac catheterization performed for accelerating SOB/PLTAA revealed severe, multivessel CAD requiring atherectomy vs. CABG.
#CAD
-New diagnosis.
-S/P coronary lithotripsy and PCI of the 90% proximal LAD lesion (4.0 x 12 Shockwave balloon) and PCI (Medtronic [place]elia [place] 4.0 x 15 JOSE, post dilated with 4.0 NC balloon throughout, 4.5 NC balloon in proximal margin to 24 THAI) with 10-20%
residual stenosis.
-DAPT with aspirin and clopidogrel for at least 12 months, likely lifelong given burden of CAD.
-Aggressive secondary prevention with high dose, high potency statin.
-If the patient has return of angina (or equivalent) after PCI (plus treatment of HFpEF and COPD/RLD), we can consider further intervention on the residual mid LAD disease, understanding that it would also be a higher risk intervention, requiring
plaque modification (CSI) and likely a two stent strategy.
#HFpEF
-Acute (probably on chronic).
-LVEDP/PCWP = 32 mmHg.
-Weight is falling SLOWLY with furosemide 80 mg IV BID. Metolazone 2.5 mg x 1
-CO2 is rising (likely contraction alkalosis but also in part to underlying respiratory acidosis). Acetazolamide 500mg x 1 04/03/2024
-Monitor renal function, oxygen requirement, daily weights.
-Continue metoprolol succinate
-SGLT2i is cost prohibitive
-Home oxygen evaluation.
#RLD/COPD
-New diagnosis.
-PFT's from 03/31/2024 show FEV1/FVC = 69%, FEV1 = 1.42 (51%), TLC = 3.12 L (66%), DLCO = 9.09 mL/min/mmHg (49%).
-CT chest shows mild bibasilar scarring.
-Pulmonology following.
-Nebulizers.
#HTN
-Chronic, stable.
-Continue metoprolol.
#HLD
-Chronic, stable.
-Total cholesterol = 99, LDL = 27, HDL = 39, Triglycerides = 166.
-Continue rosuvastatin and icosapent ethyl.
-Goal LDL < 55, Triglycerides < 150.
#IDDM
-Chronic, uncontrolled.
-HbA1c = 8.3%.
-SSI per primary team.
-Hold metformin in anticipation of possible catheterization.
-She would benefit from GLP-1 agonist as an outpatient.
#PAD
-Chronic, stable.
-Lipid lower therapy as above.
Subjective/Interval History:
Still very SOB when ambulatory.
Cannot tolerate RA.
DATA:
Cardiac Catheterization/PCI, 03/31/2024:
CONCLUSIONS:
1. Right dominant circulation with chronic total occlusion of the RCA, collateralized by the left system, tapering of the distal left main, a 50-60% lesion in the ostium of the circumflex, 40% lesion in the proximal margin of OM1, a Schumacher 1, 1,
170% lesion in the mid LAD spanning the origin of the second diagonal and a densely calcified, 90% nodular lesion in the proximal LAD, status post successful intracoronary lithotripsy (4.0 x 12 shockwave balloon) and PCI (Medtronic [place]elia [place] 4.0
x 15 JOSE, postdilated with a 4.0 NC balloon throughout and a 4.5 x 8 NC balloon in the proximal margin) with reduction in stenosis to 10-20%, maintaining JAMAL-3 flow.
2. Severely elevated filling pressures (LVEDP = 32 mmHg, PCWP = 32 mmHg at 95.3 kg).
3. Moderate pre and postcapillary pulmonary hypertension (PA = 60 /, PVR = 3.44 Gallagher units), WHO group 2 and likely WHO group 3.
4. Depressed cardiac output (3.78 L/min) and index (1.89 L/min/m�) with normal AV O2 difference (4.68 volume %).
CT Chest, 03/29/2024:
IMPRESSION:
1. SEVERE CALCIFIC ATHEROSCLEROTIC PLAQUE in the CORONARY ARTERIES.
2. Severe calcific atherosclerotic plaque in the thoracic aorta.
3. Moderate calcification in the aortic valve.
4. Mild scarring in both lungs.
5. Severe right convex curvature of the midthoracic spine with severe multilevel thoracic discogenic degenerative disease.
TTE, 03/25/2024:
CONCLUSIONS
1. Technically difficult study making assessment of wall motion less reliable.
Grossly, LV function is normal with an estimated ejection fraction of 60%. A
localized wall motion abnormality could not be excluded.
2. Normal RV function.
3. Mildly increased transaortic gradient of 21 mm peak 14 mm mean with a
calculated aortic valve area of 1.5 cm2. Findings compatible with the presence
of mild aortic stenosis. No aortic insufficiency was detected.
4. Moderate aortic root sclerosis.
5. Normal chamber sizes.
6. No other significant valvular disease is detected.
Physical Exam
Vital Signs/Labs
Vital Signs
Temp Pulse Resp BP Pulse Ox
98.3 F 65 18 124/69 95
04/04/24 11:21 04/04/24 11:19 04/04/24 11:21 04/04/24 11:19 04/04/24 11:21
04/03/24 04/04/24 04/05/24
06:59 06:59 06:59
Actual Weight 93.8 kg 93.4 kg
04/04/24 04:29
04/04/24 04:29
PT 13.6 Sec (11.4-14.6) 03/28/24 13:11
INR 1.06 03/28/24 13:11
APTT Cancelled 03/31/24 11:40
Magnesium 1.8 mg/dl (1.6-2.3) 04/02/24 08:11
Triglycerides 166 mg/dl (10-149) H 03/28/24 04:21
LDL Cholesterol, Calc 27 mg/dl 03/28/24 04:21
VLDL Cholesterol, Calc 33 mg/dl (0-30) H 03/28/24 04:21
HDL Cholesterol 39 mg/dl 03/28/24 04:21
03/28/24
04:21
Yng-T-Erpflwtgbmi Pept 406
Physical Exam
Constitutional: No acute distress and Comfortable
EENT: Anicteric and Moist mucous membranes
Cardiovascular: Rhythm & rate is regular and S1S2 is normal
Respiratory: Respiratory effort normal and Crackles Present
GI: Soft, Distention absent, Flat and Non tender
Neuro/Psych: AO x 3
Other: Skin (warm and dry)
Data Reviewed
-
Date of Service: April 04, 2024
[2024-04-04 12:34] LABS: Glucose - Point of Care 194 mg/dl (70-99)
--- NOTE | 2024-04-04 13:09 | W.PN.PUL3 ---
Today's Communication / Plan
-
Continue diuresis
Cardiac management
Continue inhaler therapy
Home oxygen assessment prior to discharge
Continue BiPAP at night and as needed
Eventual pulmonary follow-up
Sign off
Assessment
-
68-year-old female with a past medical history of CAD, asthma, reported history of COPD, GERD, DM type II, PAD, former tobacco use disorder and cataracts who presents with SOB for 3-4 weeks. 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
Dr. Giordano, on 03/25/[address] depressions concerning for ischemia. She had gone to [facility] for left heart cath showing three-vessel CAD. PCI of the LAD was attempted but unsuccessful and now she is here at [facility] for further management. Spirometry was done here at [facility] showing a very severe restrictive lung defect with postbronchodilator FVC of 40% predicted. She also had a blood gas showing metabolic alkalosis with a pH 7.46, pCO2 52.
Pulmonary service now consulted for further recommendations/management.
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
Impression:
#Severe COPD, FEV1 49%
#Moderate restrictive lung disease, likely from obesity
#Former [id number]
#Abnormal blood gas with metabolic alkalosis with compensatory respiratory acidosis
#Morbid obesity
#DM type II c/b hyperglycemia (A1C: 8.3)
#Hx of asthma (she does not have COPD as per spirometry on 03/28/2024)
#CAD
#GERD
Plan:
Respiratory status unchanged. Stable overnight.
Continue supplemental oxygen-attempt to wean to room air
Home oxygen assessment prior to discharge-post proper diuresis.
Nebulizers if needed-currently not bronchospastic
Aspiration precautions
Incentive spirometry
BiPAP as needed and tolerated
Cardiology and cardiovascular/thoracic surgery following-correspondence reviewed
Cardiovascular surgery feels surgical intervention is prohibitive given patient's comorbidities, severe lung disease and [id number] smoking history
Subsequently the patient's cardiac team was considering high risk PCI and not open heart procedure which the patient underwent successfully
Once again the pulmonary team feels she is at moderate to high risk for perioperative pulmonary complications if median sternotomy/thoracotomy/CABG pursued-agree with cardiovascular surgery
Severe COPD by PFT criteria
Continue current inhalers fluticasone/salmeterol/tiotropium-maximal medical therapy.
COPD education was given during this admission.
Cardiac catheterization right and left 03/31/2024-RV 61/24, RA 25, PA 61/37, PCWP-34, cardiac index 1.89, successful intracoronary lithotripsy of densely calcified 90% nodular proximal LAD lesion, successful PCI of 90% proximal LAD lesion with
balloon with reduction of stenosis to 10 to 20%,
Aggressive diuresis recommended as well as medical therapy in addition to cardiac rehab
If the patient has return of angina or equivalent cardiology would consider further high risk intervention of the residual mid LAD disease and a 2 stent strategy
DVT prophylaxis-recommended
Nutrition
Early mobilization
Ongoing outpatient pulmonary evaluation is recommended including to discuss lung cancer screening given her significant tobacco use history
She qualifies for LDCT chest given she quit 7 years ago and smoked >36-rlbo-ctis Hx and is between ages 50-77.
We will also help manage her outpatient asthma, pulmonary function test, sleep disordered breathing, etc.
No additional recommendation from the pulmonary perspective. At this point I will sign off.
Please call back with questions.
Diagnostic Data:
CT Chest without contrast 03-29-2024:
1. SEVERE CALCIFIC ATHEROSCLEROTIC PLAQUE in the CORONARY ARTERIES.
2. Severe calcific atherosclerotic plaque in the thoracic aorta.
3. Moderate calcification in the aortic valve.
4. Mild scarring in both lungs.
5. Severe right convex curvature of the midthoracic spine with severe multilevel thoracic discogenic degenerative disease.
Spirometry 03/28/2024-FEV1 0.72-41%, FVC 1.15-39%, ratio 76 (mixed pattern, severely reduced)
PFT 03/31/24- FEV1 0.81L 49%, FVC 0.82 49%, ratio 69. TLC 3.12L 66%, DLCO 49% (severe obstruction, moderate restriction, moderate diffusion impairment)
Subjective Data
-
Date of Service:
Date of Service: April 04, 2024
Chief Complaint: Pulmonary Follow Up and Dyspnea Follow Up
Subjective:
Patient offers no new complaints
Remains on low rate supplemental oxygen
Denies any cough or wheezing per
Denies phlegm production from
Currently sitting out of bed comfortably per
Review of Systems
Cardiopulmonary: Dyspnea (none at rest)
GI: Abdominal Pain (n) and Nausea
Neuro: Headache (n)
Objective Data
Data Reviewed
Vital Signs / I&O / Oxygen:
Vital Signs
Temp Pulse Resp BP Pulse Ox
98.3 F 65 18 124/69 95
04/04/24 11:21 04/04/24 11:19 04/04/24 11:21 04/04/24 11:19 04/04/24 11:21
Intake and Output
04/03/24 04/04/24 04/05/24
06:59 06:59 06:59
Intake Total 180 / 180 340 / 340
Output Total 1700 / 1700 2049 1300 / 1300
Balance -1520 / -1520 -1710 / -1710 -1300 / -1300
SaO2 95
Nasal Cannula flow liters per 3
minute
Physical Exam
General: Respiratory Distress (n) and Comfortable
HEENT: Normocephalic, Anicteric and Moist Mucous Membranes
Cardiovascular: Regular Rhythm and Murmur
Respiratory: Clear (Diminished breath sounds), Crackles (n), Rhonchi (n), Non-Labored Respirations, Accessory Resp Muscle Use (n) and Stridor (n)
GI: Soft, Non Distended and Non Tender
Neurology: Awake, Alert, Oriented, AO x 3 and No Motor Deficits
Skin: Warm, Good Color, Cyanosis (n), Jaundice (n) and Rash (n)
Labs/Micro/Reports
Lab Data
04/04/24 04:29
04/04/24 04:29
[2024-04-04] MEDS: NOVOLOG FLEXPEN-MODERATE RESISTANCE 1 UNITS SC (13:13)
[2024-04-04] MEDS: KLOR-CON 20 MEQ PO (13:15)
[2024-04-04] MEDS: LYRICA 50 MG PO ×2 (15:33→21:48)
[2024-04-04] MEDS: ULTRAM 100 MG PO ×2 (15:35→21:48)
[2024-04-04 17:27] LABS: Glucose - Point of Care 203 mg/dl (70-99)
[2024-04-04] MEDS: NOVOLOG FLEXPEN-MODERATE RESISTANCE 3 UNITS SC (17:55)
[2024-04-04] MEDS: LOVENOX 40 MG SC (17:56)
[2024-04-04 21:37] LABS: Glucose - Point of Care 220 mg/dl (70-99)
[2024-04-04] MEDS: LANTUS 0.599999999999999978 UNITS SC (21:47)
--- NOTE | 2024-04-05 01:11 | PTCARENOTE ---
Pt. very pleasant this shift, OOB to chair and independent with ambulation when awake. VSS; NSR on the monitor; pulse ox 2L O2 93-94%. Voided 600 ml so far this shift andi colored urine. Medicated for lower back pain with tramadol, pt. now
sleeping.
[2024-04-05 04:32] VITALS: BP 141/72
[2024-04-05 05:28] LABS: Blood Urea Nitrogen 41 mg/dl (7-17); Calcium 9.4 mg/dl (8.4-10.2); Chloride 85 mmol/L (98-107); Estimated Creatinine Clearance 76 ml/min; Glucose 114 mg/dl (70-99); Potassium 3.3 mmol/L (3.5-5.1); Sodium 133 mmol/L (135-145); eGFR > 60.00
[2024-04-05 05:39] LABS: Carbon Dioxide 39 mmol/L (22-30)
[2024-04-05 06:00] VITALS: BMI 35.1
[2024-04-05] MEDS: ADVAIR HFA 230/21 MCG INHALER 1 PUFF INH ×2 (07:37→18:16)
[2024-04-05] MEDS: SPIRIVA RESPIMAT 2.5 MCG 2 PUFF INH (07:37)
--- NOTE | 2024-04-05 07:46 | W.PN.CD ---
Today's Communication / Plan
-
-Continue diuresis. Will add Zaroxolyn 5 mg x 1 again
Impression / Plan
-
Impression/Plan: 68 y/o female with IDDM, HTN, HLD and PAD transferred from [facility] after cardiac catheterization performed for accelerating SOB/PLATA revealed severe, multivessel CAD requiring atherectomy vs. CABG.
#CAD
-New diagnosis.
-S/P coronary lithotripsy and PCI of the 90% proximal LAD lesion (4.0 x 12 Shockwave balloon) and PCI (Medtronic [place] 4.0 x 15 JOSE, post dilated with 4.0 NC balloon throughout, 4.5 NC balloon in proximal margin to 24 THAI) with 10-20%
residual stenosis.
-DAPT with aspirin and clopidogrel for at least 12 months, likely lifelong given burden of CAD.
-Aggressive secondary prevention with high dose, high potency statin.
-If the patient has return of angina (or equivalent) after PCI (plus treatment of HFpEF and COPD/RLD), we can consider further intervention on the residual mid LAD disease, understanding that it would also be a higher risk intervention, requiring
plaque modification (CSI) and likely a two stent strategy.
#HFpEF
-Acute (probably on chronic).
-LVEDP/PCWP = 32 mmHg.
-Weight is falling SLOWLY with furosemide 80 mg IV BID. s/p Metolazone 2.5 mg on 04/04/14. Will give another 5 mg today
-Incorrect I/Os.
-CO2 is rising (likely contraction alkalosis but also in part to underlying respiratory acidosis). Acetazolamide 500mg x 1 04/03/2024
-Monitor renal function, oxygen requirement, daily weights.
-Continue metoprolol succinate
-SGLT2i is cost prohibitive
-Home oxygen evaluation.
#RLD/COPD
-New diagnosis.
-PFT's from 03/31/2024 show FEV1/FVC = 69%, FEV1 = 1.42 (51%), TLC = 3.12 L (66%), DLCO = 9.09 mL/min/mmHg (49%).
-CT chest shows mild bibasilar scarring.
-Pulmonology following.
-Nebulizers.
#HTN
-Chronic, stable.
-Continue metoprolol.
#HLD
-Chronic, stable.
-Total cholesterol = 99, LDL = 27, HDL = 39, Triglycerides = 166.
-Continue rosuvastatin and icosapent ethyl.
-Goal LDL < 55, Triglycerides < 150.
#IDDM
-Chronic, uncontrolled.
-HbA1c = 8.3%.
-SSI per primary team.
-Hold metformin in anticipation of possible catheterization.
-She would benefit from GLP-1 agonist as an outpatient.
#PAD
-Chronic, stable.
-Lipid lower therapy as above.
Subjective/Interval History:
Still very SOB when ambulatory.
Cannot tolerate RA.
DATA:
Cardiac Catheterization/PCI, 03/31/2024:
CONCLUSIONS:
1. Right dominant circulation with chronic total occlusion of the RCA, collateralized by the left system, tapering of the distal left main, a 50-60% lesion in the ostium of the circumflex, 40% lesion in the proximal margin of OM1, a Schumacher 1, 1,
170% lesion in the mid LAD spanning the origin of the second diagonal and a densely calcified, 90% nodular lesion in the proximal LAD, status post successful intracoronary lithotripsy (4.0 x 12 shockwave balloon) and PCI (Medtronic [place] 4.0
x 15 JOSE, postdilated with a 4.0 NC balloon throughout and a 4.5 x 8 NC balloon in the proximal margin) with reduction in stenosis to 10-20%, maintaining JAMAL-3 flow.
2. Severely elevated filling pressures (LVEDP = 32 mmHg, PCWP = 32 mmHg at 95.3 kg).
3. Moderate pre and postcapillary pulmonary hypertension (PA = 60 1/37/45, PVR = 3.44 Gallagher units), WHO group 2 and likely WHO group 3.
4. Depressed cardiac output (3.78 L/min) and index (1.89 L/min/m�) with normal AV O2 difference (4.68 volume %).
CT Chest, 03/29/2024:
IMPRESSION:
1. SEVERE CALCIFIC ATHEROSCLEROTIC PLAQUE in the CORONARY ARTERIES.
2. Severe calcific atherosclerotic plaque in the thoracic aorta.
3. Moderate calcification in the aortic valve.
4. Mild scarring in both lungs.
5. Severe right convex curvature of the midthoracic spine with severe multilevel thoracic discogenic degenerative disease.
TTE, 03/25/2024:
CONCLUSIONS
1. Technically difficult study making assessment of wall motion less reliable.
Grossly, LV function is normal with an estimated ejection fraction of 60%. A
localized wall motion abnormality could not be excluded.
2. Normal RV function.
3. Mildly increased transaortic gradient of 21 mm peak 14 mm mean with a
calculated aortic valve area of 1.5 cm2. Findings compatible with the presence
of mild aortic stenosis. No aortic insufficiency was detected.
4. Moderate aortic root sclerosis.
5. Normal chamber sizes.
6. No other significant valvular disease is detected.
Physical Exam
Vital Signs/Labs
Vital Signs
Temp Pulse Resp BP Pulse Ox
98.1 F 69 16 141/72 95
04/05/24 04:33 04/05/24 07:38 04/05/24 07:38 04/05/24 04:32 04/05/24 04:33
04/04/24 04/05/24 04/06/24
06:59 06:59 06:59
Actual Weight 93.4 kg
04/04/24 04:29
04/05/24 04:40
PT 13.6 Sec (11.4-14.6) 03/28/24 13:11
INR 1.06 03/28/24 13:11
APTT Cancelled 03/31/24 11:40
Magnesium 1.8 mg/dl (1.6-2.3) 04/02/24 08:11
Triglycerides 166 mg/dl (10-149) H 03/28/24 04:21
LDL Cholesterol, Calc 27 mg/dl 03/28/24 04:21
VLDL Cholesterol, Calc 33 mg/dl (0-30) H 03/28/24 04:21
HDL Cholesterol 39 mg/dl 03/28/24 04:21
03/28/24
04:21
Gxw-X-Lsvyewujdrs Pept 406
Physical Exam
Constitutional: No acute distress and Comfortable
EENT: Anicteric and Moist mucous membranes
Cardiovascular: Rhythm & rate is regular, Systolic murmur absent, Pedal edema present and JVD present
Respiratory: Respiratory effort normal, Lungs clear to auscul. and Crackles Absent
GI: Soft, Non tender and Normal bowel sounds
Neuro/Psych: Alert, Oriented and AO x 3
Data Reviewed
-
Date of Service: April 05, 2024
Medical Decision Making: Reviewed Test Results, Independent Historian Assessment, Test Interpretation and Review of Case with other Provider
EKG: Tracing Personally Visualized and interpreted
Echo: Report Reviewed by me
Labs: Labs Reviewed by me
Old Records: Reviewed
[2024-04-05 07:47] VITALS: BP 128/66
--- NOTE | 2024-04-05 07:47 | W.PN.HOSP.TC ---
Today's Communication/Plan
-
see plan
Assessment / Plan
Assessment / Plan
Ms. Angeline Morales is a 68 yo woman with hx CAD managed medically (dx 2017), restrict lung disease, 72 pack year smoking history, obesity, reported history COPD but PFT's in-house show asthma transferred from [facility] for CABG
evaluation. Patient complained of several weeks of shortness of breath. EKG at cardiology office showed ST depressions, sent to OSH with left heart cath showing 3V disease, PCI attempted and unsuccessful and she was transferred to on 03/28/24.
Patient deemed to be moderate to high risk for pulmonary complications. Decision made to pursue high risk PCI. She is now s/p successful PCI 90% proximal LAD lesion with balloon with reduction of stenosis to 10-20%.
CT CHEST 03/29/24
IMPRESSION:
1. SEVERE CALCIFIC ATHEROSCLEROTIC PLAQUE in the CORONARY ARTERIES.
2. Severe calcific atherosclerotic plaque in the thoracic aorta.
3. Moderate calcification in the aortic valve.
4. Mild scarring in both lungs.
5. Severe right convex curvature of the midthoracic spine with severe multilevel thoracic discogenic degenerative disease.
Carotid US 03/30/24
IMPRESSION: Negative for flow-limiting carotid stenosis. By velocity criteria, any internal carotid artery stenosis present is in the range of 0-49%.
Journeyman Patternmaker Report 03/31/24
CONCLUSIONS:
1. Right dominant circulation with chronic total occlusion of the RCA, collateralized by the left system, tapering of the distal left main, a 50-60% lesion in the ostium of the circumflex, 40% lesion in the proximal margin of OM1, a Schumacher 1, 1,
170% lesion in the mid LAD spanning the origin of the second diagonal and a densely calcified, 90% nodular lesion in the proximal LAD, status post successful intracoronary lithotripsy (4.0 x 12 shockwave balloon) and PCI (Medtronic [place] 4.0
x 15 JOSE, postdilated with a 4.0 NC balloon throughout and a 4.5 x 8 NC balloon in the proximal margin) with reduction in stenosis to 10-20%, maintaining JAMAL-3 flow.
2. Severely elevated filling pressures (LVEDP = 32 mmHg, PCWP = 32 mmHg at 95.3 kg).
3. Moderate pre and postcapillary pulmonary hypertension (PA = 60 , PVR = 3.44 Gallagher units), WHO group 2 and likely WHO group 3.
4. Depressed cardiac output (3.78 L/min) and index (1.89 L/min/m�) with normal AV O2 difference (4.68 volume %).
Coronary Artery Disease
-deemed not to be surgery candidate
-now s/p successful PCI with lithotripsy/JOSE to proximal LAD 03/31/24
-continue ASA/Plavix
-continue Statin
-per cardiology: 'If the patient has return of angina (or equivalent) after PCI (plus treatment of HFpEF and COPD/RLD), we can consider further intervention on the residual mid LAD disease, understanding that it would also be a higher risk
intervention, requiring plaque modification (CSI) and likely a two stent strategy.'
Heart Failure preserved EF
-PCWP 32 on cath 03/31/24
-continue IV lasix
-s/p Diamox on 04/03; s/p metolazone on 04/04
-follow up further cardiology recs
-daily weights, stright I/O
-F/U if Jardiance affordable for patient; free coupon in chart per cardiology
Hypoxic Respiratory Insufficiency
-remains on 2L O2. May be multifactorial 2/2 heart failure and lung disease
-s/p home O2 testing - 3L with ambulation; may need to be repeated pre-DC given further diuresis
Restrictive Lung Disease
Obesity
Smoking History
Asthma on Spirometry 03/31/24
-appreciate pulmonary insight
-CT chest with mild bibasilar scarring
-Outpatient pulmonary/sleep disorders follow-up
Essential Hypertension
-ROVING FRAME TENDER Metoprolol
-hold ROVING FRAME TENDER HCTZ
Hyperlipidemia
-ROVING FRAME TENDER statin
IDDM
-ROVING FRAME TENDER metformin resumed, creatinine stable post cath
-patient is on pre-meal insulin 25 units TID at home - continue at 10 now
-ROVING FRAME TENDER Lantus 60 units qhs (takes BID at home);increase AM Lantus to 40 (patient stating she eats more bread at home; cautiously getting back to home dosing)
-ISS
Peripheral Arterial Disease
-aspirin/plavix/statin
DVT PPx start lovenox
Anticipated Discharge: 24 - 48 hours
Subjective/Interval History
-
Date of Service: April 05, 2024
feeling good today
urinated a lot
Objective Data
-
Labs:
Laboratory Results
04/05/24
04:40
Sodium 133 L
Potassium 3.3 L
Chloride 85 L
Carbon Dioxide 39 H
BUN 41 H
Creatinine 0.8
Glucose 114 H
Calcium 9.4
Vital Signs:
Vital Signs
Temp Pulse Resp BP Pulse Ox
98.1 F 69 16 141/72 95
04/05/24 04:33 04/05/24 07:38 04/05/24 07:38 04/05/24 04:32 04/05/24 04:33
I&O
04/04/24 04/05/24 04/06/24
06:59 06:59 06:59
Intake Total 340 / 340 240 / 240
Output Total 2049 / 2049 1900 / 190
Balance -1710 / -1710 -1660 / -1660
Review of Systems
-
History Source: Patient
All other systems: Reviewed and negative
Physical Exam
-
General: No Apparent Distress and Obese
HEENT: PERRLA
Respiratory: Clear to Auscultation and Rales; Negative Wheezes
Cardiac: Regular Rhythm and S1/S2
GI: Soft and Nontender
Musculoskeletal: No Edema
Skin: Warm and Dry; Negative Rash
Neuro: AO x 3
Psych: Calm
Data Reviewed
-
Diagnostic Radiology: Report Reviewed by me
Labs: Labs Reviewed by me
[2024-04-05 07:50] LABS: Glucose - Point of Care 125 mg/dl (70-99)
[2024-04-05] MEDS: LASIX 80 MG IV ×2 (08:36→16:13)
[2024-04-05] MEDS: BENTYL 20 MG PO ×3 (08:37→21:23)
[2024-04-05] MEDS: PLAVIX 75 MG PO (08:37)
[2024-04-05] MEDS: GLUCOPHAGE 500 MG PO (08:37)
[2024-04-05] MEDS: ASPIR LOW (ENTERIC COATED) 81 MG PO (08:37)
[2024-04-05] MEDS: TOPROL XL 50 MG PO (08:37)
[2024-04-05] MEDS: CRESTOR 20 MG PO (08:37)
[2024-04-05] MEDS: CLARITIN 10 MG PO (08:37)
[2024-04-05] MEDS: LYRICA PO (08:38)
[2024-04-05] MEDS: NON-FORMULARY ITEM 2 GM PO ×2 (08:38→16:13)
[2024-04-05] MEDS: MIRALAX 17 GRAMS PO (08:38)
[2024-04-05] MEDS: KLOR-CON 40 MEQ PO (08:38)
[2024-04-05] MEDS: NOVOLOG FLEXPEN-MODERATE RESISTANCE SC (08:39)
[2024-04-05] MEDS: LANTUS 0.400000000000000022 UNITS SC (08:39)
[2024-04-05] MEDS: NOVOLOG FLEXPEN 10 UNITS SC ×3 (08:39→17:45)
[2024-04-05] MEDS: ULTRAM 100 MG PO ×3 (09:01→22:33)
[2024-04-05 11:09] VITALS: BP 127/69
[2024-04-05 12:14] LABS: Glucose - Point of Care 211 mg/dl (70-99)
[2024-04-05] MEDS: NOVOLOG FLEXPEN-MODERATE RESISTANCE 3 UNITS SC ×2 (12:58→17:46)
--- NOTE | 2024-04-05 14:12 | PTCARENOTE ---
04/05/24 Received patient from fast food shift lead in bed with no complaints. Pt is AAO x4. Pt denies any chest pain, palpitations or shortness of breath. Vital signs are stable. Pt is on 2L NC 95%. Reviewed plan of care and medications w/patient. All
questions were answered, support given. Will monitor throughout my shift.
[2024-04-05 15:09] LABS: Magnesium 2.1 mg/dl (1.6-2.3)
[2024-04-05] MEDS: LYRICA 50 MG PO ×2 (15:19→21:23)
[2024-04-05] MEDS: ZAROXOLYN 5 MG PO (15:19)
[2024-04-05 15:23] VITALS: BP 112/75
[2024-04-05 17:31] LABS: Glucose - Point of Care 214 mg/dl (70-99)
[2024-04-05] MEDS: LOVENOX 40 MG SC (17:44)
[2024-04-05 18:44] VITALS: BP 120/59
[2024-04-05 21:20] LABS: Glucose - Point of Care 156 mg/dl (70-99)
[2024-04-05] MEDS: LANTUS 0.599999999999999978 UNITS SC (21:23)
[2024-04-05 22:35] VITALS: BP 112/62
[2024-04-06 04:43] VITALS: BP 132/67
[2024-04-06 04:46] VITALS: BMI 35.2
--- NOTE | 2024-04-06 05:19 | PTCARENOTE ---
Pt awake intermittently t/o the night. Pt medicated for complaints of low back pain. Pt ambulating to bathroom with strict I/O. Pt remains on 2 LO2 NC. No issues to report. HR in the 60's in NSR on the monitor. Will continue to monitor.
[2024-04-06 05:31] LABS: Blood Urea Nitrogen 45 mg/dl (7-17); Calcium 9.3 mg/dl (8.4-10.2); Chloride 82 mmol/L (98-107); Estimated Creatinine Clearance 67 ml/min; Glucose 103 mg/dl (70-99); Potassium 3.2 mmol/L (3.5-5.1); Sodium 134 mmol/L (135-145); eGFR > 60.00
[2024-04-06 05:43] LABS: Carbon Dioxide 39 mmol/L (22-30)
[2024-04-06 07:10] VITALS: BP 117/58
[2024-04-06 07:14] LABS: Glucose - Point of Care 119 mg/dl (70-99)
[2024-04-06] MEDS: SPIRIVA RESPIMAT 2.5 MCG 2 PUFF INH (07:33)
[2024-04-06] MEDS: ADVAIR HFA 230/21 MCG INHALER 1 PUFF INH ×2 (07:33→19:36)
[2024-04-06] MEDS: NOVOLOG FLEXPEN-MODERATE RESISTANCE SC ×2 (08:03→13:14)
[2024-04-06] MEDS: CRESTOR 20 MG PO (08:07)
[2024-04-06] MEDS: MIRALAX 17 GRAMS PO (08:07)
[2024-04-06] MEDS: CLARITIN 10 MG PO (08:07)
[2024-04-06] MEDS: LASIX 80 MG IV ×2 (08:08→15:34)
[2024-04-06] MEDS: BENTYL 20 MG PO ×3 (08:08→22:39)
[2024-04-06] MEDS: TOPROL XL 50 MG PO (08:09)
[2024-04-06] MEDS: ASPIR LOW (ENTERIC COATED) 81 MG PO (08:09)
[2024-04-06] MEDS: PLAVIX 75 MG PO (08:10)
[2024-04-06] MEDS: GLUCOPHAGE 500 MG PO (08:10)
[2024-04-06] MEDS: NOVOLOG FLEXPEN 10 UNITS SC ×3 (08:11→17:58)
[2024-04-06] MEDS: NON-FORMULARY ITEM 2 GM PO ×2 (08:12→15:33)
[2024-04-06] MEDS: ULTRAM 100 MG PO ×2 (09:04→20:47)
[2024-04-06] MEDS: LANTUS 0.400000000000000022 UNITS SC (09:04)
--- NOTE | 2024-04-06 09:16 | PTCARENOTE ---
Assumed care of pt from night RN. Pt received awake and alert, Ox3. VSS, CM shows NSR 60-70's, POX 94%/2l. Tramadol 100 mg given as per DEC for 6 lower back pain. Right radial JANNET with good CMS throughout limb. Will continue to monitor
closely.
[2024-04-06] MEDS: KCL 40 MEQ PO ×3 (10:13→22:39)
--- NOTE | 2024-04-06 10:15 | PTCARENOTE ---
AM K= 3.2, hospitalist Dr. Becerra made aware pt received first dose of 40 meq's K po as per MAR for repletion.
[2024-04-06 12:10] VITALS: BP 117/75
--- NOTE | 2024-04-06 12:26 | W.PN.HOSP.TC ---
Today's Communication/Plan
-
Monitor vital signs and see plan
Replete potassium
Continue with diuresis
Will need home O2 evaluation prior to discharge
Assessment / Plan
Assessment / Plan
Ms. Angeline Morales is a 68 yo woman with hx CAD managed medically (dx 2017), restrict lung disease, 72 pack year smoking history, obesity, reported history COPD but PFT's in-house show asthma transferred from [facility] for CABG
evaluation. Patient complained of several weeks of shortness of breath. EKG at cardiology office showed ST depressions, sent to OSH with left heart cath showing 3V disease, PCI attempted and unsuccessful and she was transferred to on 03/28/24.
Patient deemed to be moderate to high risk for pulmonary complications. Decision made to pursue high risk PCI. She is now s/p successful PCI 90% proximal LAD lesion with balloon with reduction of stenosis to 10-20%.
CT CHEST 03/29/24
IMPRESSION:
1. SEVERE CALCIFIC ATHEROSCLEROTIC PLAQUE in the CORONARY ARTERIES.
2. Severe calcific atherosclerotic plaque in the thoracic aorta.
3. Moderate calcification in the aortic valve.
4. Mild scarring in both lungs.
5. Severe right convex curvature of the midthoracic spine with severe multilevel thoracic discogenic degenerative disease.
Carotid US 03/30/24
IMPRESSION: Negative for flow-limiting carotid stenosis. By velocity criteria, any internal carotid artery stenosis present is in the range of 0-49%.
Math And Physics Instructor Report 03/31/24
CONCLUSIONS:
1. Right dominant circulation with chronic total occlusion of the RCA, collateralized by the left system, tapering of the distal left main, a 50-60% lesion in the ostium of the circumflex, 40% lesion in the proximal margin of OM1, a Schumacher 1, 1,
170% lesion in the mid LAD spanning the origin of the second diagonal and a densely calcified, 90% nodular lesion in the proximal LAD, status post successful intracoronary lithotripsy (4.0 x 12 shockwave balloon) and PCI (Medtronic Twan [place] 4.0
x 15 JOSE, postdilated with a 4.0 NC balloon throughout and a 4.5 x 8 NC balloon in the proximal margin) with reduction in stenosis to 10-20%, maintaining JAMAL-3 flow.
2. Severely elevated filling pressures (LVEDP = 32 mmHg, PCWP = 32 mmHg at 95.3 kg).
3. Moderate pre and postcapillary pulmonary hypertension (PA = 60 /, PVR = 3.44 Gallagher units), WHO group 2 and likely WHO group 3.
4. Depressed cardiac output (3.78 L/min) and index (1.89 L/min/m�) with normal AV O2 difference (4.68 volume %).
Coronary Artery Disease
-deemed not to be surgery candidate
-now s/p successful PCI with lithotripsy/JOSE to proximal LAD 03/31/24
-continue ASA/Plavix
-continue Statin
-per cardiology: 'If the patient has return of angina (or equivalent) after PCI (plus treatment of HFpEF and COPD/RLD), we can consider further intervention on the residual mid LAD disease, understanding that it would also be a higher risk
intervention, requiring plaque modification (CSI) and likely a two stent strategy.'
Heart Failure preserved EF
-PCWP 32 on cath 03/31/24
-continue IV lasix
-s/p Diamox on 04/03; s/p metolazone on 04/04
-follow up further cardiology recs
-daily weights, stright I/O
-F/U if Jardiance affordable for patient; free coupon in chart per cardiology
Hypoxic Respiratory Insufficiency
-remains on 2L O2. May be multifactorial 2/2 heart failure and lung disease
-s/p home O2 testing - 3L with ambulation; may need to be repeated pre-DC given further diuresis
Restrictive Lung Disease
Obesity
Smoking History
Asthma on Spirometry 03/31/24
-appreciate pulmonary insight
-CT chest with mild bibasilar scarring
-Outpatient pulmonary/sleep disorders follow-up
Hypokalemia
replete
Essential Hypertension
-INDUSTRIAL MAINTENANCE MECHANIC Metoprolol
-hold INDUSTRIAL MAINTENANCE MECHANIC HCTZ
Hyperlipidemia
-INDUSTRIAL MAINTENANCE MECHANIC statin
IDDM
-INDUSTRIAL MAINTENANCE MECHANIC metformin resumed, creatinine stable post cath
-patient is on pre-meal insulin 25 units TID at home - continue at 10 now
-INDUSTRIAL MAINTENANCE MECHANIC Lantus 60 units qhs (takes BID at home);increase AM Lantus to 40 (patient stating she eats more bread at home; cautiously getting back to home dosing)
-ISS
Peripheral Arterial Disease
-aspirin/plavix/statin
DVT PPx start lovenox
General: No Apparent Distress and Obese
HEENT: PERRLA
Respiratory: Clear to Auscultation and Rales; Negative Wheezes
Cardiac: Regular Rhythm and S1/S2
GI: Soft and Nontender
Musculoskeletal: No Edema
Skin: Warm and Dry; Negative Rash
Neuro: AO x 3
Psych: Calm
I spent a total of 52 minutes with the patient or on the floor. More than 50% of this time involved counseling and coordination of care.
Anticipated Discharge: 24 - 48 hours
Subjective/Interval History
-
Date of Service: April 06, 2024
denies pain
Objective Data
-
Labs:
Laboratory Results
04/06/24
04:46
Sodium 134 L
Potassium 3.2 L
Chloride 82 L
Carbon Dioxide 39 H
BUN 45 H
Creatinine 0.9
Glucose 103 H
Calcium 9.3
Vital Signs:
Vital Signs
Temp Pulse Resp BP Pulse Ox
98.2 F 57 20 117/75 95
04/06/24 12:07 04/06/24 12:10 04/06/24 12:07 04/06/24 12:10 04/06/24 12:07
I&O
04/05/24 04/06/24 04/07/24
06:59 06:59 06:59
Intake Total 240 / 240 840 / 840
Output Total 1899 / 1899 2900 / 2900
Balance -1659 / -1659 -2059 / -2059
--- NOTE | 2024-04-06 13:10 | CM ---
Chart reviewed. Patient is independent of ADLS, lives with her son and in a [address] ST, ramp access, 0 DME. Referral sent to [facility]. Patient being diuresed, but if she needs Oxygen at home [facility] will need to be called before
discharge, . Plan is for the patient to return home with Shikha SAHU CM to follow
[2024-04-06 13:16] LABS: Glucose - Point of Care 147 mg/dl (70-99)
--- NOTE | 2024-04-06 13:35 | PTCARENOTE ---
Second dose of 40 meq's K given as per MAR.
--- NOTE | 2024-04-06 15:26 | W.PN.CD ---
Today's Communication / Plan
-
Change furosemide to 80 mg PO BID.
Home oxygen evaluation.
Discharge planning.
Impression / Plan
-
Impression/Plan: 68 y/o female with IDDM, HTN, HLD and PAD transferred from [facility] after cardiac catheterization performed for accelerating SOB/PLATA revealed severe, multivessel CAD requiring atherectomy vs. CABG.
#CAD
-New diagnosis.
-S/P coronary lithotripsy and PCI of the 90% proximal LAD lesion (4.0 x 12 Shockwave balloon) and PCI ([employer] [place] 4.0 x 15 JOSE, post dilated with 4.0 NC balloon throughout, 4.5 NC balloon in proximal margin to 24 THAI) with 10-20%
residual stenosis.
-DAPT with aspirin and clopidogrel for at least 12 months, likely lifelong given burden of CAD.
-Aggressive secondary prevention with high dose, high potency statin.
-If the patient has return of angina (or equivalent) after PCI (plus treatment of HFpEF and COPD/RLD), we can consider further intervention on the residual mid LAD disease, understanding that it would also be a higher risk intervention, requiring
plaque modification (CSI) and likely a two stent strategy.
#HFpEF
-Acute (probably on chronic).
-LVEDP/PCWP = 32 mmHg.
-Weight is falling SLOWLY with furosemide 80 mg IV BID. s/p Metolazone 2.5 mg on 04/04/14. Will give another 5 mg today
-Incorrect I/Os.
-CO2 is rising (likely contraction alkalosis but also in part to underlying respiratory acidosis). Acetazolamide 500mg x 1 on 04/03/2024.
-Monitor renal function, oxygen requirement, daily weights. I suspect that she is near her volume edward.
-Continue metoprolol succinate
-SGLT2i is cost prohibitive
-Home oxygen evaluation as I am not sure she has much more volume to give.
-Transition to furosemide 80 mg PO BID (first dose this afternoon).
#RLD/COPD
-New diagnosis.
-PFT's from 03/31/2024 show FEV1/FVC = 69%, FEV1 = 1.42 (51%), TLC = 3.12 L (66%), DLCO = 9.09 mL/min/mmHg (49%).
-CT chest shows mild bibasilar scarring.
-Pulmonology has signed off.
-Nebulizers.
-Home oxygen evaluation.
-She will need close outpatient pulmonology follow up.
#HTN
-Chronic, stable.
-Continue metoprolol.
#HLD
-Chronic, stable.
-Total cholesterol = 99, LDL = 27, HDL = 39, Triglycerides = 166.
-Continue rosuvastatin and icosapent ethyl.
-Goal LDL < 55, Triglycerides < 150.
#IDDM
-Chronic, uncontrolled.
-HbA1c = 8.3%.
-SSI per primary team.
-Continue metformin.
-She would benefit from GLP-1 agonist as an outpatient.
#PAD
-Chronic, stable.
-Lipid lower therapy as above.
Subjective/Interval History:
I/O is negative 1300 mL.
Weight is relatively unchanged (even up 0.3 kg).
Na is 134 with a BUN to 45.
DATA:
Cardiac Catheterization/PCI, 03/31/2024:
CONCLUSIONS:
1. Right dominant circulation with chronic total occlusion of the RCA, collateralized by the left system, tapering of the distal left main, a 50-60% lesion in the ostium of the circumflex, 40% lesion in the proximal margin of OM1, a Schumacher 1, 1,
170% lesion in the mid LAD spanning the origin of the second diagonal and a densely calcified, 90% nodular lesion in the proximal LAD, status post successful intracoronary lithotripsy (4.0 x 12 shockwave balloon) and PCI ([employer]tr[employer] [place] 4.0
x 15 JOSE, postdilated with a 4.0 NC balloon throughout and a 4.5 x 8 NC balloon in the proximal margin) with reduction in stenosis to 10-20%, maintaining JAMAL-3 flow.
2. Severely elevated filling pressures (LVEDP = 32 mmHg, PCWP = 32 mmHg at 95.3 kg).
3. Moderate pre and postcapillary pulmonary hypertension (PA = 60 1/37/45, PVR = 3.44 Gallagher units), WHO group 2 and likely WHO group 3.
4. Depressed cardiac output (3.78 L/min) and index (1.89 L/min/m�) with normal AV O2 difference (4.68 volume %).
CT Chest, 03/29/2024:
IMPRESSION:
1. SEVERE CALCIFIC ATHEROSCLEROTIC PLAQUE in the CORONARY ARTERIES.
2. Severe calcific atherosclerotic plaque in the thoracic aorta.
3. Moderate calcification in the aortic valve.
4. Mild scarring in both lungs.
5. Severe right convex curvature of the midthoracic spine with severe multilevel thoracic discogenic degenerative disease.
TTE, 03/25/2024:
CONCLUSIONS
1. Technically difficult study making assessment of wall motion less reliable.
Grossly, LV function is normal with an estimated ejection fraction of 60%. A
localized wall motion abnormality could not be excluded.
2. Normal RV function.
3. Mildly increased transaortic gradient of 21 mm peak 14 mm mean with a
calculated aortic valve area of 1.5 cm2. Findings compatible with the presence
of mild aortic stenosis. No aortic insufficiency was detected.
4. Moderate aortic root sclerosis.
5. Normal chamber sizes.
6. No other significant valvular disease is detected.
Physical Exam
Vital Signs/Labs
Vital Signs
Temp Pulse Resp BP Pulse Ox
36.8 C 57 20 117/75 95
04/06/24 12:07 04/06/24 12:10 04/06/24 12:07 04/06/24 12:10 04/06/24 12:07
04/05/24 04/06/24 04/07/24
11:59 11:59 11:59
Actual Weight 92.7 kg 93 kg
04/04/24 04:29
04/06/24 04:46
PT 13.6 Sec (11.4-14.6) 03/28/24 13:11
INR 1.06 03/28/24 13:11
APTT Cancelled 03/31/24 11:40
Magnesium 2.1 mg/dl (1.6-2.3) 04/05/24 04:40
Triglycerides 166 mg/dl (10-149) H 03/28/24 04:21
LDL Cholesterol, Calc 27 mg/dl 03/28/24 04:21
VLDL Cholesterol, Calc 33 mg/dl (0-30) H 03/28/24 04:21
HDL Cholesterol 39 mg/dl 03/28/24 04:21
03/28/24
04:21
Xnm-[id number]-Rwsdfaeiowr Pept 406
Physical Exam
Constitutional: No acute distress and Comfortable
EENT: Anicteric and Moist mucous membranes
Cardiovascular: Rhythm & rate is regular, Pedal edema is absent, JVD pressure is normal, S1S2 is normal and Murmur/rub/gallop absent
Respiratory: Respiratory effort normal, Lungs clear to auscul., Wheeze Absent, Crackles Absent and Rhonchi Absent
GI: Soft, Distention absent, Flat, Non tender and Normal bowel sounds
Neuro/Psych: AO x 3
Data Reviewed
-
Date of Service: April 06, 2024
Medical Decision Making: Reviewed Test Results, Independent Historian Assessment and Test Interpretation
EKG: Tracing Personally Visualized and interpreted and Report Reviewed by me
Echo: Tracing Personally Visualized and interpreted and Report Reviewed by me
X-Ray/CT/US/MRI/NUC/PET: Image Personally Visualized and interpreted and Report Reviewed by me
Medical Tests (PFT, Pathology etc): Image Personally Visualized and interpreted and Report Reviewed by me
Labs: Labs Reviewed by me
Old Records: Reviewed
--- NOTE | 2024-04-06 15:28 | W.PN.CD ---
Today's Communication / Plan
-
Continue diuresis
Impression / Plan
-
Impression/Plan: 68 y/o female with IDDM, HTN, HLD and PAD transferred from [facility] after cardiac catheterization performed for accelerating SOB/PLATA revealed severe, multivessel CAD requiring atherectomy vs. CABG.
#CAD
-New diagnosis.
-S/P coronary lithotripsy and PCI of the 90% proximal LAD lesion (4.0 x 12 Shockwave balloon) and PCI ([employer]tr[employer] [place] 4.0 x 15 JOSE, post dilated with 4.0 NC balloon throughout, 4.5 NC balloon in proximal margin to 24 THAI) with 10-20%
residual stenosis.
-DAPT with aspirin and clopidogrel for at least 12 months, likely lifelong given burden of CAD.
-Aggressive secondary prevention with high dose, high potency statin.
-If the patient has return of angina (or equivalent) after PCI (plus treatment of HFpEF and COPD/RLD), we can consider further intervention on the residual mid LAD disease, understanding that it would also be a higher risk intervention, requiring
plaque modification (CSI) and likely a two stent strategy.
#HFpEF
-Acute (probably on chronic).
-LVEDP/PCWP = 32 mmHg.
-Weight is falling SLOWLY with furosemide 80 mg IV BID
-s/p Metolazone 2.5 mg on 04/04/24 & 5 mg 04/05/24 without significant change
-Likely incorrect I/Os (no change in weight)
-Acetazolamide 500mg x 1 04/03/2024 (likely contraction alkalosis but also in part to underlying respiratory acidosis)
-Monitor renal function, oxygen requirement, daily weights.
-Continue metoprolol succinate
-SGLT2i is cost prohibitive
-Home oxygen evaluation.
#RLD/COPD
-New diagnosis.
-PFT's from 03/31/2024 show FEV1/FVC = 69%, FEV1 = 1.42 (51%), TLC = 3.12 L (66%), DLCO = 9.09 mL/min/mmHg (49%).
-CT chest shows mild bibasilar scarring.
-Pulmonology following.
-Nebulizers.
#HTN
-Chronic, stable.
-Continue metoprolol.
#HLD
-Chronic, stable.
-Total cholesterol = 99, LDL = 27, HDL = 39, Triglycerides = 166.
-Continue rosuvastatin and icosapent ethyl.
-Goal LDL < 55, Triglycerides < 150.
#IDDM
-Chronic, uncontrolled.
-HbA1c = 8.3%.
-SSI per primary team.
-Hold metformin in anticipation of possible catheterization.
-She would benefit from GLP-1 agonist as an outpatient.
#PAD
-Chronic, stable.
-Lipid lower therapy as above.
Subjective/Interval History:
SOB vastly improved.
Cannot tolerate RA.
DATA:
Cardiac Catheterization/PCI, 03/31/2024:
CONCLUSIONS:
1. Right dominant circulation with chronic total occlusion of the RCA, collateralized by the left system, tapering of the distal left main, a 50-60% lesion in the ostium of the circumflex, 40% lesion in the proximal margin of OM1, a Schumacher 1, 1,
170% lesion in the mid LAD spanning the origin of the second diagonal and a densely calcified, 90% nodular lesion in the proximal LAD, status post successful intracoronary lithotripsy (4.0 x 12 shockwave balloon) and PCI ([employer]tr[employer] [place] 4.0
x 15 JOSE, postdilated with a 4.0 NC balloon throughout and a 4.5 x 8 NC balloon in the proximal margin) with reduction in stenosis to 10-20%, maintaining JAMAL-3 flow.
2. Severely elevated filling pressures (LVEDP = 32 mmHg, PCWP = 32 mmHg at 95.3 kg).
3. Moderate pre and postcapillary pulmonary hypertension (PA = 60 1/37/45, PVR = 3.44 Gallagher units), WHO group 2 and likely WHO group 3.
4. Depressed cardiac output (3.78 L/min) and index (1.89 L/min/m�) with normal AV O2 difference (4.68 volume %).
CT Chest, 03/29/2024:
IMPRESSION:
1. SEVERE CALCIFIC ATHEROSCLEROTIC PLAQUE in the CORONARY ARTERIES.
2. Severe calcific atherosclerotic plaque in the thoracic aorta.
3. Moderate calcification in the aortic valve.
4. Mild scarring in both lungs.
5. Severe right convex curvature of the midthoracic spine with severe multilevel thoracic discogenic degenerative disease.
TTE, 03/25/2024:
CONCLUSIONS
1. Technically difficult study making assessment of wall motion less reliable.
Grossly, LV function is normal with an estimated ejection fraction of 60%. A
localized wall motion abnormality could not be excluded.
2. Normal RV function.
3. Mildly increased transaortic gradient of 21 mm peak 14 mm mean with a
calculated aortic valve area of 1.5 cm2. Findings compatible with the presence
of mild aortic stenosis. No aortic insufficiency was detected.
4. Moderate aortic root sclerosis.
5. Normal chamber sizes.
6. No other significant valvular disease is detected.
Physical Exam
Vital Signs/Labs
Vital Signs
Temp Pulse Resp BP Pulse Ox
98.2 F 57 20 117/75 95
04/06/24 12:07 04/06/24 12:10 04/06/24 12:07 04/06/24 12:10 04/06/24 12:07
04/05/24 04/06/24 04/07/24
06:59 06:59 06:59
Actual Weight 92.7 kg 93 kg
04/04/24 04:29
04/06/24 04:46
PT 13.6 Sec (11.4-14.6) 03/28/24 13:11
INR 1.06 03/28/24 13:11
APTT Cancelled 03/31/24 11:40
Magnesium 2.1 mg/dl (1.6-2.3) 04/05/24 04:40
Triglycerides 166 mg/dl (10-149) H 03/28/24 04:21
LDL Cholesterol, Calc 27 mg/dl 03/28/24 04:21
VLDL Cholesterol, Calc 33 mg/dl (0-30) H 03/28/24 04:21
HDL Cholesterol 39 mg/dl 03/28/24 04:21
03/28/24
04:21
Urr-M-Wncvhbsshye Pept 406
Physical Exam
Constitutional: No acute distress and Comfortable
EENT: Anicteric and Moist mucous membranes
Cardiovascular: Rhythm & rate is regular, Pedal edema is absent, S1S2 is normal and Murmur/rub/gallop absent
Respiratory: Respiratory effort normal and Crackles Present
GI: Soft, Distention absent, Flat, Non tender and Normal bowel sounds
Neuro/Psych: AO x 3
Other: Skin (warm and dry) and Cath Site (C/D/I)
Data Reviewed
-
Date of Service: April 06, 2024
[2024-04-06] MEDS: LYRICA 50 MG PO ×2 (15:33→22:39)
[2024-04-06 16:05] VITALS: BP 104/61
[2024-04-06 17:05] LABS: Glucose - Point of Care 207 mg/dl (70-99)
[2024-04-06] MEDS: NOVOLOG FLEXPEN-MODERATE RESISTANCE 3 UNITS SC (17:57)
[2024-04-06] MEDS: LOVENOX 40 MG SC (17:59)
[2024-04-06 18:18] VITALS: BP 107/57
[2024-04-06 22:04] LABS: Glucose - Point of Care 203 mg/dl (70-99)
[2024-04-06 22:36] VITALS: BP 114/59
[2024-04-06] MEDS: LANTUS 0.599999999999999978 UNITS SC (22:39)
--- NOTE | 2024-04-07 01:22 | PTCARENOTE ---
Took tramadol at 2044 for chronic low back pain with adequate relief. Voiding clear yellow urine. SR on the monitor in the 60's. Sleeping at present.
[2024-04-07 03:46] VITALS: BP 120/59
[2024-04-07] MEDS: SPIRIVA RESPIMAT 2.5 MCG 2 PUFF INH (07:24)
[2024-04-07] MEDS: ADVAIR HFA 230/21 MCG INHALER 1 PUFF INH (07:25)
[2024-04-07 08:38] VITALS: BP 129/70
[2024-04-07 08:41] VITALS: BMI 34.7
--- NOTE | 2024-04-07 08:52 | W.PN.CD ---
Today's Communication / Plan
-
she looks stable on lasix 80mg PO bid
cont ASA, Plavix, crestor, ToproL XL
AM labs pending
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
please call us back with additional questions
Impression / Plan
-
Impression/Plan: 68 y/o female with IDDM, HTN, HLD and PAD transferred from [facility] after cardiac catheterization performed for accelerating SOB/PLATA revealed severe, multivessel CAD requiring atherectomy vs. CABG.
#CAD
-New diagnosis.
-S/P coronary lithotripsy and PCI of the 90% proximal LAD lesion (4.0 x 12 Shockwave balloon) and PCI ([employer]tr[employer] [place] 4.0 x 15 JOSE, post dilated with 4.0 NC balloon throughout, 4.5 NC balloon in proximal margin to 24 THAI) with 10-20%
residual stenosis.
-DAPT with aspirin and clopidogrel for at least 12 months, likely lifelong given burden of CAD.
-Aggressive secondary prevention with high dose, high potency statin.
-If the patient has return of angina (or equivalent) after PCI (plus treatment of HFpEF and COPD/RLD), we can consider further intervention on the residual mid LAD disease, understanding that it would also be a higher risk intervention, requiring
plaque modification (CSI) and likely a two stent strategy.
#HFpEF: improved s/p IV lasix, dry weight likely 91-92 kg
-Acute (probably on chronic).
-LVEDP/PCWP = 32 mmHg.
-s/p Metolazone 2.5 mg on 04/04/24 & 5 mg 04/05/24 without significant angel
-Acetazolamide 500mg x 1 04/03/2024 (likely contraction alkalosis but also in part to underlying respiratory acidosis)
-Monitor renal function, oxygen requirement, daily weights.
-SGLT2i is cost prohibitive
-Home oxygen evaluation.
-continue lasix 80mg PO bid
#RLD/COPD
-New diagnosis.
-PFT's from 03/31/2024 show FEV1/FVC = 69%, FEV1 = 1.42 (51%), TLC = 3.12 L (66%), DLCO = 9.09 mL/min/mmHg (49%).
-CT chest shows mild bibasilar scarring.
-Pulmonology following.
-Nebulizers.
#HTN
-Chronic, stable.
-Continue metoprolol.
#HLD
-Chronic, stable.
-Total cholesterol = 99, LDL = 27, HDL = 39, Triglycerides = 166.
-Continue rosuvastatin and icosapent ethyl.
-Goal LDL < 55, Triglycerides < 150.
#IDDM
-Chronic, uncontrolled.
-HbA1c = 8.3%.
-SSI per primary team.
-She would benefit from GLP-1 agonist as an outpatient.
#PAD
-Chronic, stable.
-Lipid lower therapy as above.
Subjective/Interval History:
SOB vastly improved.
Cannot tolerate RA.
DATA:
Cardiac Catheterization/PCI, 03/31/2024:
CONCLUSIONS:
1. Right dominant circulation with chronic total occlusion of the RCA, collateralized by the left system, tapering of the distal left main, a 50-60% lesion in the ostium of the circumflex, 40% lesion in the proximal margin of OM1, a Schumacher 1, 1,
170% lesion in the mid LAD spanning the origin of the second diagonal and a densely calcified, 90% nodular lesion in the proximal LAD, status post successful intracoronary lithotripsy (4.0 x 12 shockwave balloon) and PCI ([employer] [place] 4.0
x 15 JOSE, postdilated with a 4.0 NC balloon throughout and a 4.5 x 8 NC balloon in the proximal margin) with reduction in stenosis to 10-20%, maintaining JAMAL-3 flow.
2. Severely elevated filling pressures (LVEDP = 32 mmHg, PCWP = 32 mmHg at 95.3 kg).
3. Moderate pre and postcapillary pulmonary hypertension (PA = 60 37/45, PVR = 3.44 Gallagher units), WHO group 2 and likely WHO group 3.
4. Depressed cardiac output (3.78 L/min) and index (1.89 L/min/m�) with normal AV O2 difference (4.68 volume %).
CT Chest, 03/29/2024:
IMPRESSION:
1. SEVERE CALCIFIC ATHEROSCLEROTIC PLAQUE in the CORONARY ARTERIES.
2. Severe calcific atherosclerotic plaque in the thoracic aorta.
3. Moderate calcification in the aortic valve.
4. Mild scarring in both lungs.
5. Severe right convex curvature of the midthoracic spine with severe multilevel thoracic discogenic degenerative disease.
TTE, 03/25/2024:
CONCLUSIONS
1. Technically difficult study making assessment of wall motion less reliable.
Grossly, LV function is normal with an estimated ejection fraction of 60%. A
localized wall motion abnormality could not be excluded.
2. Normal RV function.
3. Mildly increased transaortic gradient of 21 mm peak 14 mm mean with a
calculated aortic valve area of 1.5 cm2. Findings compatible with the presence
of mild aortic stenosis. No aortic insufficiency was detected.
4. Moderate aortic root sclerosis.
5. Normal chamber sizes.
6. No other significant valvular disease is detected.
Physical Exam
Vital Signs/Labs
Vital Signs
Temp Pulse Resp BP Pulse Ox
97.9 F 70 18 129/70 95
04/07/24 08:38 04/07/24 08:38 04/07/24 08:38 04/07/24 08:38 04/07/24 08:38
04/06/24 04/07/24 04/08/24
06:59 06:59 06:59
Actual Weight 93 kg 91.5 kg
04/04/24 04:29
PT 13.6 Sec (11.4-14.6) 03/28/24 13:11
INR 1.06 03/28/24 13:11
APTT Cancelled 03/31/24 11:40
Magnesium 2.1 mg/dl (1.6-2.3) 04/05/24 04:40
Triglycerides 166 mg/dl (10-149) H 03/28/24 04:21
LDL Cholesterol, Calc 27 mg/dl 03/28/24 04:21
VLDL Cholesterol, Calc 33 mg/dl (0-30) H 03/28/24 04:21
HDL Cholesterol 39 mg/dl 03/28/24 04:21
03/28/24
04:21
Zmd-H-Gffrrgwutse Pept 406
Physical Exam
Constitutional: No acute distress and Comfortable
EENT: Moist mucous membranes
Cardiovascular: Rhythm & rate is regular, Pedal edema is absent, JVD present and Systolic murmur present
Respiratory: Respiratory effort normal
GI: Soft and Distention absent
Neuro/Psych: AO x 3
Data Reviewed
-
Date of Service: April 07, 2024
EKG: Other (Tele: SR 60s)
Labs: Labs Reviewed by me
[2024-04-07 08:55] LABS: Glucose - Point of Care 82 mg/dl (70-99)
[2024-04-07] MEDS: NOVOLOG FLEXPEN-MODERATE RESISTANCE SC (08:59)
--- NOTE | 2024-04-07 09:00 | PTCARENOTE ---
Assumed care of pt from prev nsg shift. Pt AAOx3 w/no c/o CP or SOB. Pt OOB to chair, able to ambulate unassisted. Pt's Vs stable w/HR in 60's and BP this AM 129/70. Pt's O2 sats 95% on 2L via NC. Prev nsg shift reported trying to wean pt off O2 and
pt's O2 sats decreased to 86% on RA at rest. Pt placed back on O2 2L w/sats improving to 94-95%. Pt hopeful for D/C today. Plan of care ongoing.
[2024-04-07] MEDS: BENTYL 20 MG PO (09:33)
[2024-04-07] MEDS: PLAVIX 75 MG PO (09:33)
[2024-04-07] MEDS: CLARITIN 10 MG PO (09:33)
[2024-04-07] MEDS: GLUCOPHAGE 500 MG PO (09:33)
[2024-04-07] MEDS: ASPIR LOW (ENTERIC COATED) 81 MG PO (09:34)
[2024-04-07] MEDS: KCL 20 MEQ PO (09:34)
[2024-04-07] MEDS: LASIX 80 MG PO (09:34)
[2024-04-07] MEDS: NOVOLOG FLEXPEN 10 UNITS SC ×2 (09:34→14:10)
[2024-04-07] MEDS: MIRALAX PO (09:35)
[2024-04-07] MEDS: LANTUS 0.400000000000000022 UNITS SC (09:35)
[2024-04-07] MEDS: TOPROL XL 50 MG PO (09:35)
[2024-04-07] MEDS: CRESTOR 20 MG PO (09:35)
[2024-04-07] MEDS: NON-FORMULARY ITEM 2 GM PO (09:36)
[2024-04-07 09:40] LABS: Blood Urea Nitrogen 48 mg/dl (7-17); Calcium 9.3 mg/dl (8.4-10.2); Chloride 84 mmol/L (98-107); Estimated Creatinine Clearance 75 ml/min; Glucose 80 mg/dl (70-99); Potassium 3.8 mmol/L (3.5-5.1); Sodium 136 mmol/L (135-145); eGFR > 60.00
[2024-04-07 10:39] LABS: Carbon Dioxide 40 mmol/L (22-30)
--- NOTE | 2024-04-07 10:46 | W.PN.HOSP.TC ---
Addendum entered and electronically signed by Pavan Becerra MD 04/07/24 11:11:
Per PDMP, recently filled tramadol which were prescribed more.
Original Note:
Today's Communication/Plan
-
Monitor vital signs and see plan
Switch Lasix to p.o.
Discharge today
Needs home O2
Time of discharge 38 minutes
Assessment / Plan
Assessment / Plan
Ms. Angeline Morales is a 68 yo woman with hx CAD managed medically (dx 2017), restrict lung disease, 72 pack year smoking history, obesity, reported history COPD but PFT's in-house show asthma transferred from [facility] for CABG
evaluation. Patient complained of several weeks of shortness of breath. EKG at cardiology office showed ST depressions, sent to OSH with left heart cath showing 3V disease, PCI attempted and unsuccessful and she was transferred to on 03/28/24.
Patient deemed to be moderate to high risk for pulmonary complications. Decision made to pursue high risk PCI. She is now s/p successful PCI 90% proximal LAD lesion with balloon with reduction of stenosis to 10-20%.
CT CHEST 03/29/24
IMPRESSION:
1. SEVERE CALCIFIC ATHEROSCLEROTIC PLAQUE in the CORONARY ARTERIES.
2. Severe calcific atherosclerotic plaque in the thoracic aorta.
3. Moderate calcification in the aortic valve.
4. Mild scarring in both lungs.
5. Severe right convex curvature of the midthoracic spine with severe multilevel thoracic discogenic degenerative disease.
Carotid US 03/30/24
IMPRESSION: Negative for flow-limiting carotid stenosis. By velocity criteria, any internal carotid artery stenosis present is in the range of 0-49%.
[employer] Head Report 03/31/24
CONCLUSIONS:
1. Right dominant circulation with chronic total occlusion of the RCA, collateralized by the left system, tapering of the distal left main, a 50-60% lesion in the ostium of the circumflex, 40% lesion in the proximal margin of OM1, a Schumacher 1, 1,
170% lesion in the mid LAD spanning the origin of the second diagonal and a densely calcified, 90% nodular lesion in the proximal LAD, status post successful intracoronary lithotripsy (4.0 x 12 shockwave balloon) and PCI ([employer] [place] 4.0
x 15 JOSE, postdilated with a 4.0 NC balloon throughout and a 4.5 x 8 NC balloon in the proximal margin) with reduction in stenosis to 10-20%, maintaining JAMAL-3 flow.
2. Severely elevated filling pressures (LVEDP = 32 mmHg, PCWP = 32 mmHg at 95.3 kg).
3. Moderate pre and postcapillary pulmonary hypertension (PA = 60 , PVR = 3.44 Gallagher units), WHO group 2 and likely WHO group 3.
4. Depressed cardiac output (3.78 L/min) and index (1.89 L/min/m�) with normal AV O2 difference (4.68 volume %).
Coronary Artery Disease
-deemed not to be surgery candidate
-now s/p successful PCI with lithotripsy/JOSE to proximal LAD 03/31/24
-continue ASA/Plavix
-continue Statin
-per cardiology: 'If the patient has return of angina (or equivalent) after PCI (plus treatment of HFpEF and COPD/RLD), we can consider further intervention on the residual mid LAD disease, understanding that it would also be a higher risk
intervention, requiring plaque modification (CSI) and likely a two stent strategy.'
Heart Failure preserved EF
-PCWP 32 on cath 03/31/24
-s/p Diamox on 04/03; s/p metolazone on 04/04
-follow up further cardiology recs
-daily weights, stright I/O
-F/U if Jardiance affordable for patient; free coupon in chart per cardiology
patient is now on PO lasix; repeat BMP next week with OP heel sorter
Hypoxic Respiratory Insufficiency
-remains on 2L O2. May be multifactorial 2/2 heart failure and lung disease
-s/p home O2 testing - Patient is in need of oxygen at 2 liters/minute via nasal cannula continuously due to pulse oximetry of 86% on room air at rest. Oxygen will help to improve hypoxemia. Patient is mobile within the home. DuoNeb therapy has been
tried and is ineffective in treating hypoxemia related symptoms. Oxygen is needed to improve symptoms.
Patient is not using bipap
Restrictive Lung Disease
Obesity
Smoking History
Asthma on Spirometry 03/31/24
-appreciate pulmonary insight
-CT chest with mild bibasilar scarring
-Outpatient pulmonary/sleep disorders follow-up
Hypokalemia
replete
Essential Hypertension
-CAMP MANAGER Metoprolol
-hold CAMP MANAGER HCTZ
Hyperlipidemia
-CAMP MANAGER statin
IDDM
-CAMP MANAGER metformin resumed, creatinine stable post cath
-patient is on pre-meal insulin 25 units TID at home - continue at 10 now
-CAMP MANAGER Lantus 60 units qhs (takes BID at home);increase AM Lantus to 40 (patient stating she eats more bread at home; cautiously getting back to home dosing)
-ISS
Peripheral Arterial Disease
-aspirin/plavix/statin
DVT PPx start lovenox
General: No Apparent Distress and Obese
HEENT: PERRLA
Respiratory: Clear to Auscultation and Rales; Negative Wheezes
Cardiac: Regular Rhythm and S1/S2
GI: Soft and Nontender
Musculoskeletal: No Edema
Skin: Warm and Dry; Negative Rash
Neuro: AO x 3
Psych: Calm
Anticipated Discharge: Today
Subjective/Interval History
-
Date of Service: April 07, 2024
denies chest pain
Objective Data
-
Labs:
Laboratory Results
04/07/24 04/07/24
04:05 08:54
Sodium Cancelled 136
Potassium Cancelled 3.8
Chloride Cancelled 84 L
Carbon Dioxide Cancelled 40 H
BUN Cancelled 48 H
Creatinine Cancelled 0.8
Glucose Cancelled 80
Calcium Cancelled 9.3
Vital Signs:
Vital Signs
Temp Pulse Resp BP Pulse Ox
97.9 F 70 18 129/70 95
04/07/24 08:38 04/07/24 08:38 04/07/24 08:38 04/07/24 08:38 04/07/24 08:38
I&O
04/06/24 04/07/24 04/08/24
06:59 06:59 06:59
Intake Total 840 / 840
Output Total 2900 / 2900 2900 / 2900
Balance -2059 / -2059 -2900 / -2900
--- NOTE | 2024-04-07 11:10 | W.DCSUMMARY ---
Discharge Summary
Discharge Data
Date of Admission: 03/27/24
Date of Discharge: 04/07/24
-
Pending Results: No
Hospital Course
68-year-old female with past medical history of CAD, restrictive lung disease, obesity, obstructive lung disease came to the hospital as a transfer from [facility] for CABG evaluation. Patient was complaining of several weeks of
shortness of breath and at his outpatient cardiology office EKG showed ST depressions. Patient was initially at [facility] and was later transferred to [facility] for possible CABG evaluation. With multiple discussions decision was made to
pursue high risk PCI. Patient then underwent coronary lithotripsy and PCI of 90% proximal LAD lesion. Patient was then started on aspirin and Plavix for which she was instructed to continue for at least 12 months. While patient was in the
hospital she also had congestive heart failure exacerbation for which she was treated initially with IV Lasix which were later transitioned to p.o. Lasix prior to discharge. On this hospitalization she also had new diagnosis of restrictive lung
disease and possible COPD for which she was seen by pulmonary. CT chest was done which showed mild bibasilar scarring. Patient continued to require oxygenation during hospitalization and prior to discharge. Since patient symptoms continue to
improve, she was then discharged home on oxygen with instructions to follow-up with all her physicians outpatient.
Discharge Plan
-
Patient Disposition: Home (Routine Discharge)
Discharge Diagnosis/Procedures: Coronary artery disease angioplasty and stent to Left Anterior Descending artery
Acute congestive heart failure with preserved ejection fraction
Hypoxic respiratory insufficiency
Restrictive lung disease
Diet: Low Cholesterol, Low Sodium and Diabetic, Carb Controlled
Activity: As tolerated
Driving Restrictions: No driving for 24 hours
Bathing Restrictions: OK to Shower
Blood Work: BMP next week with sewing demonstrator
Other Services: Cardiac Rehab
Activity Restrictions/Additional Instructions:
Please call [facility] program to schedule your first visit at [phone]
Stand Alone Forms: DC Instructions- Cath/EP Lab
Referrals:
[facility] [Other]
[facility] [Outside] (FAX [phone])
Riccardo Sinclair MD [Family Provider] - in less than 1 week
Johnson Roy MD [Active] - in two to four weeks
(
Or nurse practitioner
To discuss lung cancer screening with LDCT chest; to manage her history of asthma.
Also follow PFTs and assess for obstructive sleep apnea)
Radu Giordano MD [Active] - in two to four weeks
Prescriptions:
New
aspirin 81 mg Tablet,Delayed Release (Dr/Ec)
81 mg PO DAILY Qty: 30 0RF
clopidogrel 75 mg Tablet
75 mg PO DAILY Qty: 30 0RF
potassium chloride 20 mEq Tablet,Er Particles/Crystals
20 meq PO BID Qty: 14 0RF
furosemide 80 mg Tablet
80 mg PO BID@0800,1600 Qty: 60 0RF
Insulin Glargine Lantus [Lantus] 40 UNITS
Subcutaneous Insulin Syringe [Syringe-Insulin] 0 UNIT
As Directed mls/hr SC DAILY
Ordered By: Pavan Becerra MD
Last Taken: 04/07/24 09:35 0.4 mls
Insulin Glargine Lantus [Lantus] 60 UNITS
Subcutaneous Insulin Syringe [Syringe-Insulin] 0 UNIT
As Directed mls/hr SC HS
Ordered By: Pavan Becerra MD
Last Taken: 04/06/24 22:39 0.6 mls
metoprolol succinate 50 mg Tablet Extended Release 24 Hr
50 mg PO DAILY Qty: 30 0RF
Spiriva Respimat 2.5 mcg/actuation Mist
2 puff inhalation R DAILY Qty: 4 0RF
acetaminophen 325 mg Tablet
650 mg PO Q4HPRN PRN (Reason: mild pain/ fever>100.5F) Qty: 0 0RF
Continued
metformin 500 mg Tablet
500 mg PO DAILY
fluticasone propion-salmeterol [Advair Diskus] 250-50 mcg/dose Blister With Device
1 inh INHALATION BID
docusate calcium 240 mg Capsule
240 mg PO BID
dicyclomine 20 mg Tablet
20 mg PO TID
albuterol 90 mcg/actuation Aerosol
90 mcg INHALATION Q6
loratadine [Allergy Relief (loratadine)] 10 mg Tablet
10 mg PO DAILY
rosuvastatin 20 mg Tablet
20 mg PO DAILY
pregabalin 50 mg Capsule
50 mg PO TID
icosapent ethyl [Vascepa] 1 gram Capsule
2 g PO BID
Changed
tramadol 50 mg Tablet
50 mg PO Q6H PRN (Reason: PAIN) Qty: 20 0RF
Novolin R FlexPen 100 unit/mL (3 mL) Insulin Pen
5 unit SC TID Qty: 0 0RF
Discontinued
metoprolol succinate 50 mg Tablet Extended Release 24 Hr
50 mg PO DAILY
Adult Aspirin 81 mg Tablet
81 mg PO DAILY
hydrochlorothiazide 25 mg Tablet
25 mg PO DAILY
losartan 100 mg Tablet
100 mg PO DAILY
insulin glargine [Lantus Solostar U-100 Insulin] 100 unit/mL (3 mL) Insulin Pen
60 unit SC BID
Discharge Orders:
Discharge Patient (As Directed); Ordered 04/07/24
Ordered By: Pavan Becerra
Care Plan Goals
Care Plan Goals:
Problem: Readiness for enhanced knowledge related to diagnosis and treatment plan
Goal: Understand your diagnosis and treatment plan needs, including medications if applicable.
Instructions: Know your diagnosis, underlying causes and treatment plan options, including medications if applicable. Consult with your health care team to learn about your diagnosis and treatment plan, including medications if applicable.
Discharge Date and Time
Discharge Date/Time: 04/07/24 16:15
Print Language: [id number]
--- NOTE | 2024-04-07 11:11 | CM ---
Chart reviewed. Patient is independent of ADLS, lives with her and son in a [address], ramp to enter, 0 DME. Plan is for the patient to return home with [facility] and [facility].
[2024-04-07 12:04] VITALS: BP 134/82
[2024-04-07 12:09] LABS: Glucose - Point of Care 194 mg/dl (70-99)
[2024-04-07] MEDS: ULTRAM 100 MG PO (13:27)
[2024-04-07] MEDS: NOVOLOG FLEXPEN-MODERATE RESISTANCE 1 UNITS SC (14:10)
[2024-04-07] MEDS: LYRICA PO (15:14)
--- NOTE | 2024-04-07 16:00 | PTCARENOTE ---
D/C instructions discussed w/pt; Pt D/C'd to home w/spouse providing transportation. Pt left w/personal belongings incl cell phone & space controller, clothing, tablet, & hm O2. Pt transported by volunteers to exit where she met her to leave.
== END 2024-04-07 16:15 | disposition home health service (06) | DRG 323 ==
LOC: IVU 23:06
PROVIDERS: Internal Medicine Cardiovascular Disease; Nurse Practitioner; Physician Assistant Medical; Student in an Organized Health Care Education/Training Program; ADMITTING PHYSICIAN Thoracic Surgery (Cardiothoracic Vascular Surgery); ATTENDING PHYSICIAN Internal Medicine; CONSULT PHYSICIAN Internal Medicine; CONSULT PHYSICIAN Internal Medicine Critical Care Medicine; FAMILY PHYSICIAN Internal Medicine
PROC: 4A023N8 Measurement of Cardiac Sampling and Pressure, Bilateral, Percutaneous Approach (ICD-10-PCS; 2024-03-31)
PROC: 02F03ZZ Fragmentation in Coronary Artery, One Artery, Percutaneous Approach (ICD-10-PCS; 2024-03-31)
PROC: B2111ZZ Fluoroscopy of Multiple Coronary Arteries using Low Osmolar Contrast (ICD-10-PCS; 2024-03-31)
PROC: 027034Z Dilation of Coronary Artery, One Artery with Drug-eluting Intraluminal Device, Percutaneous Approach (ICD-10-PCS; 2024-03-31)
DX: I25.10 Atherosclerotic heart disease of native coronary artery without angina pectoris (principal); I50.33 Acute on chronic diastolic (congestive) heart failure; J96.01 Acute respiratory failure with hypoxia; E87.4 Mixed disorder of acid-base balance; J44.89 Other specified chronic obstructive pulmonary disease; K21.9 Gastro-esophageal reflux disease without esophagitis; E78.00 Pure hypercholesterolemia, unspecified; E11.42 Type 2 diabetes mellitus with diabetic polyneuropathy; E11.51 Type 2 diabetes mellitus with diabetic peripheral angiopathy without gangrene; E66.01 Morbid (severe) obesity due to excess calories; I70.212 Atherosclerosis of native arteries of extremities with intermittent claudication, left leg; I35.0 Nonrheumatic aortic (valve) stenosis; I25.82 Chronic total occlusion of coronary artery; I27.29 Other secondary pulmonary hypertension; K58.9 Irritable bowel syndrome, unspecified; M41.9 Scoliosis, unspecified; G89.29 Other chronic pain; E87.6 Hypokalemia; J98.4 Other disorders of lung; E11.65 Type 2 diabetes mellitus with hyperglycemia; I11.0 Hypertensive heart disease with heart failure; Z68.36 Body mass index [BMI] 36.0-36.9, adult; Z79.4 Long term (current) use of insulin; Z79.82 Long term (current) use of aspirin; Z79.84 Long term (current) use of oral hypoglycemic drugs; Z79.899 Other long term (current) drug therapy; Z82.49 Family history of ischemic heart disease and other diseases of the circulatory system; Z87.891 Personal history of nicotine dependence
CPT/HCPCS: 94727; 94729; 36600; 71045; 71250; 80048; 80053; 80061; 82248; 82805; 82962; 83036; 83735; 83880; 85027; 85347; 85610; 85730; 86803; 92972; 93005; 93460; 93880; 94060; 94640; 94761; C1725; C1760; C1761; C1874; C1887; C1894; C9600; Q9967